=== PATIENT | female | born 1965 | race Caucasian/White ===

== ENCOUNTER 2017-04-26 12:42 | Emergency (ER) | payer OTHER, SELFPAY ==
[2017-04-26 12:53] VITALS: BP 173/103; PULSE 99; RESP 20; TEMP 36.7; O2SAT 96; BMI 19.3
--- NOTE | 2017-04-26 12:59 | XR_ITS ---
XR chest 2V HISTORY: ITS.REASON: cough ORDERING PHYSICIAN: Isaiah Teague MD PATIENT AGE: 51 years COMPARISON: 06/07/2016 FINDINGS: The cardiomediastinal silhouette and pulmonary vascularity are within normal limits. COPD. No lobar consolidation or collapse. Fibrotic change right apex.. Degenerative change thoracic spine. No acute bony abnormalities. IMPRESSION: COPD, no change with no acute finding
--- NOTE | 2017-04-26 13:01 | HMH.EDWEAK ---
ED Disposition Clinical Impression: COPD (chronic obstructive pulmonary disease), Tobacco use, Alcoholism, Atelectasis of right lung, Hyponatremia, Hypokalemia Disposition: Home, Self-Care Condition on Discharge: Fair Additional Instructions: 1- stop smoking and drinking. 2- adopt a healthy life style. 3- see Dr Bowman for a health screening. 4- see Dr Jose for a copd. 5- strat abx for augmentin 500 mg po bid 6- diet rich in potassium and gotrade. 7- return if needed. Prescriptions: Amoxicillin [Amoxicillin 500mg Cap] 500 mg PO TID #30 cap Referrals: Néstor Bowman MD [Primary Care Provider] - Helder Jose MD [Consulting Physician] - - Critical Care Critical Care Time: No Attestation: On , the high probability of a clinically significant, sudden or life threatening deterioration of the following system(s) required my full and direct attention, intervention and personal management. The time I documented below is in addition to time spent performing reported procedures but includes the following listed in this critical care notation. Medical Decision Making - Medical Records Medical records reviewed: Yes: I reviewed the patient's medical records. Vital Signs: 04/26/17 12:53 04/26/17 14:22 Temperature 98.1 F Temperature Source Oral Pulse Rate 85 Pulse Rate [Right Ulnar] 99 H Respiratory Rate 20 Blood Pressure [Right Arm] 173/103 Blood Pressure Mean [Right Arm] 126 Blood Pressure Source [Right Arm] Automatic Cuff Blood Pressure Position [Right Arm] Supine 02 Sat by Pulse Oximetry 96 Oxygen Delivery Method Room Air - Lab Data Lab Results 04/26/17 13:06: Specimen Source Right brachial, O2 % Ra, ABG pH 7.41, ABG pCO2 33.6 L, ABG pO2 78.2 L, ABG HCO3 20.6 L, ABG Total CO2 21.6 L, ABG O2 Saturation 95, ABG Base Excess -4.1 L, Casey Test Acceptable 04/26/17 13:25: Group A Strep Rapid Negative 04/26/17 13:25: Influenza Type A Ag Negative, Influenza Type B Ag Negative 04/26/17 13:40: WBC 6.4, RBC 4.58, Hgb 15.7, Hct 47.6 H, MCV 103.9 H, MCH 34.2 H, MCHC 32.9, RDW 12.4, Plt Count 304, MPV 7.9, Neut % (Auto) 62.5, Lymph % (Auto) 31.3, [place] % (Auto) 4.2, Eos % (Auto) 1.3, Baso % (Auto) 0.7, Neut # (Auto) 4.0, Lymph # (Auto) 2.0, [place] # (Auto) 0.3, Eos # (Auto) 0.1, Baso # (Auto) 0.0 04/26/17 13:40: Sodium 134 L, Potassium 3.3 L, Chloride 95 L, Carbon Dioxide 27, Anion Gap 15.3 H, BUN 2 L, Creatinine 0.44 L, Estimated Creat Clear 129, Estimated GFR 150, Est GFR ( Amer) 182, Glucose 89, Calcium 8.5, Magnesium 1.7, Total Bilirubin 0.3, AST 89 H, ALT 48, Alkaline Phosphatase 175 H, Total Creatine Kinase 52, CK-MB (CK-2) 0.5, CK-MB (CK-2) Rel Index 1.0, Troponin I < 0.02, Total Protein 9.4 H, Albumin 3.9, Globulin 5.5 H, Albumin/Globulin Ratio 0.7 L, TSH 1.15, Free T4 0.80, Plasma/Serum Alcohol 358 H 04/26/17 13:50: Urine Color Yellow, Urine Appearance Clear, Urine pH 6.0, Ur Specific [place] <= 1.005, Urine Protein Negative, Urine Glucose (UA) Negative, Urine Ketones Negative, Urine Blood Trace-l, Urine Nitrate Negative, Urine Bilirubin Negative, Urine Urobilinogen 0.2, Ur Leukocyte Esterase Negative, Urine RBC Occasional, Urine WBC None, Ur Squamous Epith Cells Occasional, Urine Bacteria Trace 04/26/17 13:50: Urine Opiates Screen Negative, Ur Barbituates Screen Negative, Ur Phencyclidine Scrn Negative, Ur Amphetamines Screen Negative, U Methamphetamines Scrn Negative, U Benzodiazepines Scrn Negative, Urine Cocaine Screen Negative, U Marijuana (THC) Screen Negative Result diagrams: 04/26/17 13:40 04/26/17 13:40 Orders (Tests/Meds): ED MEDICATIONS Generic Name Dose Route Start Last Admin Trade Name Freq PRN Reason Stop Dose Admin Multivitamins 10 ml/ Thiamine 1,015 mls @ 150 mls/hr 04/26/17 14:45 04/26/17 15:28 HCl 100 mg/ Magnesium Sulfate IV 04/26/17 21:30 150 mls/hr 2 gm/ Lactated Ringer's .[id number] NEHAL Administration Discontinued Medications Generic
--- NOTE | 2017-04-26 13:05 | ED_ITS ---
ED Disposition Clinical Impression: COPD (chronic obstructive pulmonary disease), Tobacco use, Alcoholism, Atelectasis of right lung, Hyponatremia, Hypokalemia Disposition: Home, Self-Care Condition on Discharge: Fair Additional Instructions: 1- stop smoking and drinking. 2- adopt a healthy life style. 3- see Dr Bowman for a health screening. 4- see Dr Jose for a copd. 5- strat abx for augmentin 500 mg po bid 6- diet rich in potassium and gotrade. 7- return if needed. Prescriptions: Amoxicillin [Amoxicillin 500mg Cap] 500 mg PO TID #30 cap Referrals: Néstor Bowman MD [Primary Care Provider] - Helder Jose MD [Consulting Physician] - - Critical Care Critical Care Time: No Attestation: On , the high probability of a clinically significant, sudden or life threatening deterioration of the following system(s) required my full and direct attention, intervention and personal management. The time I documented below is in addition to time spent performing reported procedures but includes the following listed in this critical care notation. Medical Decision Making - Medical Records Medical records reviewed: Yes: I reviewed the patient's medical records. Vital Signs: 04/26/17 12:53 04/26/17 14:22 Temperature 98.1 F Temperature Source Oral Pulse Rate 85 Pulse Rate [Right Ulnar] 99 H Respiratory Rate 20 Blood Pressure [Right Arm] 173/103 Blood Pressure Mean [Right Arm] 126 Blood Pressure Source [Right Arm] Automatic Cuff Blood Pressure Position [Right Arm] Supine 02 Sat by Pulse Oximetry 96 Oxygen Delivery Method Room Air - Lab Data Lab Results 04/26/17 13:06: Specimen Source Right brachial, O2 % Ra, ABG pH 7.41, ABG pCO2 33.6 L, ABG pO2 78.2 L, ABG HCO3 20.6 L, ABG Total CO2 21.6 L, ABG O2 Saturation 95, ABG Base Excess -4.1 L, [place] Test Acceptable 04/26/17 13:25: Group A Strep Rapid Negative 04/26/17 13:25: Influenza Type A Ag Negative, Influenza Type B Ag Negative 04/26/17 13:40: WBC 6.4, RBC 4.58, Hgb 15.7, Hct 47.6 H, MCV 103.9 H, MCH 34.2 H , MCHC 32.9, RDW 12.4, Plt Count 304, MPV 7.9, Neut % (Auto) 62.5, Lymph % (Auto ) 31.3, [place] % (Auto) 4.2, Eos % (Auto) 1.3, Baso % (Auto) 0.7, Neut # (Auto) 4.0, Lymph # (Auto) 2.0, [place] # (Auto) 0.3, Eos # (Auto) 0.1, Baso # (Auto) 0.0 04/26/17 13:40: Sodium 134 L, Potassium 3.3 L, Chloride 95 L, Carbon Dioxide 27 , Anion Gap 15.3 H, BUN 2 L, Creatinine 0.44 L, Estimated Creat Clear 129, Estimated GFR 150, Est GFR ( Amer) 182, Glucose 89, Calcium 8.5, Magnesium 1.7, Total Bilirubin 0.3, AST 89 H, ALT 48, Alkaline Phosphatase 175 H , Total Creatine Kinase 52, CK-MB (CK-2) 0.5, CK-MB (CK-2) Rel Index 1.0, Troponin I < 0.02, Total Protein 9.4 H, Albumin 3.9, Globulin 5.5 H, Albumin/ Globulin Ratio 0.7 L, TSH 1.15, Free T4 0.80, Plasma/Serum Alcohol 358 H 04/26/17 13:50: Urine Color Yellow, Urine Appearance Clear, Urine pH 6.0, Ur Specific [place] <= 1.005, Urine Protein Negative, Urine Glucose (UA) Negative, Urine Ketones Negative, Urine Blood Trace-l, Urine Nitrate Negative, Urine Bilirubin Negative, Urine Urobilinogen 0.2, Ur Leukocyte Esterase Negative, Urine RBC Occasional, Urine WBC None, Ur Squamous Epith Cells Occasional, Urine Bacteria Trace 04/26/17 13:50: Urine Opiates Screen Negative, Ur Barbituates Screen Negative, Ur Phencyclidine Scrn Negative, Ur Amphetamines Screen Negative, U Methamphetamines Scrn Negative, U Benzodiazepines Scrn Negative, Urine Cocaine Screen Negative, U [place]
[2017-04-26 13:36] LABS: ABG Base Excess -4.1 mmol/L (-2.4-2.3); ABG HCO3 20.6 mmhg (22.0-26.0); ABG Oxygen Saturation 95 % (90-100); ABG PCO2 33.6 mmhg (35.0-45.0); ABG PH 7.41 mmol/L (7.35-7.45); ABG PO2 78.2 mmhg (80-100); ABG TCO2 21.6 mmhg (23-27)
[2017-04-26 13:37] LABS: Oxygen RA %
[2017-04-26 13:38] LABS: Allen's Test Acceptable; Source Right Brachial
[2017-04-26 13:50] LABS: Basophils % 0.7 % (0.1-2.0); Eosinophils # 0.1 K/mm3 (0.0-0.4); Eosinophils % 1.3 % (0.1-12.0); Hematocrit 47.6 % (37.0-47.0); Hemoglobin 15.7 g/dL (12.2-16.2); Lymphocytes % 31.3 K/mm3 (10-50); Mean Corpuscular HGB Conc 32.9 g/dL (31.8-35.4); Mean Corpuscular Hemoglobin 34.2 pg (27.0-31.2); Mean Corpuscular Volume 103.9 fl (81-99); Mean Platelet Volume 7.9 fl (7.4-10.4); Monocytes # 0.3 K/mm3 (0.1-1.0); Monocytes % 4.2 % (1.7-9.3); Neutrophils % 62.5 % (37.0-80.0); Platelet Count 304 K/mm3 (142-424); Red Blood Count 4.58 M/mm3 (4.20-5.40); Red Cell Distribution Width 12.4 % (11.5-17.5); White Blood Count 6.4 K/mm3 (4.8-10.8)
[2017-04-26 13:53] LABS: Strep Scrn Group A (Rapid) Negative (Negative)
[2017-04-26 13:55] LABS: Appearance,Urine CLEAR (Clear); Bilirubin,Urine Negative (Negative); Blood, Urine TRACE-L (Negative); Color,Urine YELLOW (Yellow); Glucose,Urine (UA) Negative (Negative); Ketones,Urine Negative (Negative); Leukocyte Esterase,Urine Negative (Negative); Microscopic, Urine URINE MICROSCOPIC (MICROSCOPIC); Nitrate,Urine Negative (Negative); Protein,Urine Negative (Negative); Specific Gravity, Urine <= 1.005 (1.005-1.030); Urobilinogen,Urine 0.2 EU/dl (0.2)
[2017-04-26 14:04] LABS: Amphetamine/Metha Screen,Urine Negative ng/mL (<1000); Barbiturates Screen,Urine Negative ng/mL (<200); Benzodiazepines Screen,Urine Negative ng/mL (200); Cannabinoid Screen,Urine Negative ng/mL (<50); Cocaine Screen,Urine Negative ng/g (<300); Methadone Screen,Urine Negative ng/mL (<300); Opiate Screen,Urine Negative ng/mL (<300); Phencyclidine Screen,Urine Negative ng/mL (<25)
[2017-04-26 14:10] LABS: Bacteria,Urine Trace /lpf; RBC,Urine Occasional #/hpf (0-3); Squamous Epithelial Cell,Urine Occasional #/hpf (0-5)
[2017-04-26 14:22] VITALS: PULSE 85; PULSE 90
[2017-04-26 14:26] LABS: Alanine Aminotransferase 48 U/L (12-78); Albumin Level 3.9 gm/dL (3.4-5.0); Albumin/Globulin Ratio 0.7 (1.1-1.8); Alkaline Phosphatase 175 U/L (46-116); Anion Gap 15.3 mEq/L (5-15); Aspartate Amino Transferase 89 U/L (15-37); Bilirubin,Total 0.3 mg/dL (0.2-1.0); Blood Urea Nitrogen 2 mg/dL (7-18); Calcium 8.5 mg/dL (8.5-10.1); Carbon Dioxide 27 mmol/L (21.0-32.0); Chloride 95 mmol/L (98-107); Creatine Kinase 52 U/L (26-192); Creatine Kinase MB 0.5 mg/ml (0.0-3.6); Creatinine Clearance Estimated 129 mL/min (0-300); Creatinine,Serum 0.44 mg/dL (0.55-1.02); Estimated Glomerular Filt Rate 150 ml/min (>60); GFR (African American) 182 ML/MIN (>60); Globulin 5.5 gm/dl (1.3-3.2); Glucose 89 mg/dL (74-106); Magnesium 1.7 mg/dL (1.4-2.2); Potassium 3.3 mmoL/L (3.5-5.1); Sodium 134 mmol/L (136-145); Thyroid Stimulating Hormone 1.15 uIU/ml (0.358-3.740); Total Protein,Serum 9.4 gm/dL (6.4-8.2); Troponin I < 0.02 ng/ml (0.00-0.06)
[2017-04-26 14:30] LABS: Ethyl Alcohol 358 mg/dL (0-99)
[2017-04-26 18:15] LABS: Ethyl Alcohol 177 mg/dL (0-99)
--- NOTE | 2017-04-26 18:35 | PC.NURSE ---
I advised pt that her blood alcohol level was too high for us to release her on her own to walk. Advised if she had a ride we could let her go and she advised she wouldnt have a ride until 11.
[2017-04-26 23:17] VITALS: BP 132/83; PULSE 81; RESP 18; TEMP 36.3; O2SAT 96
[2017-04-29 10:53] LABS: Vitamin B12 887 pg/mL (232-1245)
[2017-04-29 11:07] LABS: Folate 12.5 ng/mL (>3.0)
[2017-04-29 18:12] LABS: Vitamin B6 7.5 ug/L (2.0-32.8)
== END 2017-04-26 23:19 | disposition home or self-care (01) ==
PROVIDERS: Emergency Provider Emergency Medicine; PCP Family Medicine
DX: J44.9 Chronic obstructive pulmonary disease, unspecified (principal); E87.1 Hypo-osmolality and hyponatremia; E87.6 Hypokalemia; J98.11 Atelectasis; F17.200 Nicotine dependence, unspecified, uncomplicated
CPT/HCPCS: 36415; 71046; 80053; 80305; 81001; 82550; 82553; 82607; 82746; 82803; 83735; 84207; 84439; 84443; 84484; 85025; 87275; 87276; 87430; 93005; 93041; 96365; 96366; 99283

== ENCOUNTER 2017-05-29 12:16 | Inpatient (IN) | payer OTHER, SELFPAY ==
[2017-05-29 12:17] VITALS: BP 175/111; PULSE 94; RESP 20; TEMP 36.4; O2SAT 99; BMI 19.3
--- NOTE | 2017-05-29 12:36 | CT_ITS ---
CT abdomen pelvis w con CLINICAL INDICATION: Upper abdominal pain ITS.REASON: upper abdominal pain , po and ivc please . ORDERING PHYSICIAN: Jerome Sánchez MD PATIENT AGE: 51 years COMPARISON: None TECHNIQUE: Axial images obtained with sagittal and coronal reformats. PROCEDURE: Oral Contrast: Gastroview IV Contrast: 75 mL's of [id number]. FINDINGS: There is a 6 mm noncalcified nodule in the lateral aspect of the right middle lobe and there is patchy density in the medial aspect of the right middle lobe. The liver, spleen, adrenal glands, and kidneys have an unremarkable appearance. There is some mild prominence of the common bile duct at 8 mm. The gallbladder is distended at over 10 cm longitudinal and 3.7 cm transverse. The pancreatic duct is also somewhat prominent measuring up to nearly 5 mm. Unremarkable appendix. No evidence of diverticulitis. No evidence of intestinal obstruction or free air. Prior hysterectomy. No pelvic mass, abnormal fluid collection, or focal inflammatory changes evident. No acute bony anomalies. IMPRESSION: 1. Distended gallbladder with mild prominence of the common bile duct and pancreatic duct. Gallbladder ultrasound suggested for further evaluation. 2. 6 mm nodule right lung base laterally. Recommend 6 month follow-up. 3.Otherwise negative CT abdomen pelvis
--- NOTE | 2017-05-29 12:45 | HMH.EDABDPAI ---
ED Disposition Clinical Impression: Acute pancreatitis, UTI (urinary tract infection) Disposition: Still a Patient Condition on Discharge: Fair Instructions: DI for Acute Abdomen Referrals: Néstor Bowman MD [Primary Care Provider] - - Critical Care Critical Care Time: No Attestation: On , the high probability of a clinically significant, sudden or life threatening deterioration of the following system(s) required my full and direct attention, intervention and personal management. The time I documented below is in addition to time spent performing reported procedures but includes the following listed in this critical care notation. Medical Decision Making Vital Signs: 05/29/17 12:17 Temperature 97.5 F L Temperature Source Oral Pulse Rate [Right Brachial] 94 H Respiratory Rate 20 Blood Pressure [Right Arm] 175/111 Blood Pressure Mean [Right Arm] 132 Blood Pressure Source [Right Arm] Automatic Cuff Blood Pressure Position [Right Arm] Sitting 02 Sat by Pulse Oximetry 99 Oxygen Delivery Method Room Air - Lab Data Lab results reviewed: Yes: I reviewed the patient's lab results. Lab Results 05/29/17 13:05: WBC 9.6, RBC 4.04 L, Hgb 13.7, Hct 42.8, MCV 105.9 H, MCH 33.9 H, MCHC 32.0, RDW 12.0, Plt Count 165, MPV 8.8, Neut % (Auto) 88.6 H, Lymph % (Auto) 6.1 L, [place] % (Auto) 4.7, Eos % (Auto) 0.5, Baso % (Auto) 0.1, Neut # (Auto) 8.5 H, Lymph # (Auto) 0.6 L, [place] # (Auto) 0.5, Eos # (Auto) 0.1, Baso # (Auto) 0.0, Total Counted 100, Neutrophils % (Manual) 94 H, Band Neutrophils % 1.0, Lymphocytes % (Manual) 2 L, Monocytes % (Manual) 3, Platelet Estimate Normal, Target Cells 2+ 05/29/17 13:05: Sodium 135 L, Potassium 3.6, Chloride 94 L, Carbon Dioxide 28, Anion Gap 16.6 H, BUN 6 L, Creatinine 0.55, Estimated Creat Clear 103, Estimated GFR 116, Est GFR ( Amer) 140, Glucose 128 H, Calcium 9.1, Total Bilirubin 1.6 H, AST 59 H, ALT 36, Alkaline Phosphatase 174 H, Total Protein 9.5 H, Albumin 4.4, Globulin 5.1 H, Albumin/Globulin Ratio 0.9 L, Amylase 363 H*, Lipase 3892 H 05/29/17 13:05: Total Creatine Kinase 75, CK-MB (CK-2) 0.5, CK-MB (CK-2) Rel Index 0.7, Troponin I < 0.02 05/29/17 13:05: Lactic Acid 1.5 05/29/17 13:30: Urine Color [place], Urine Appearance Sl cloudy, Urine pH 6.0, Ur Specific [place] >= 1.030, Urine Protein 2+, Urine Glucose (UA) Negative, Urine Ketones 2+, Urine Blood 1+, Urine Nitrate Positive, Urine Bilirubin Negative, Urine Urobilinogen 0.2, Ur Leukocyte Esterase Negative, Urine RBC Occasional, Urine WBC 5-10, Ur Squamous Epith Cells 5-10, Urine Bacteria 3+, Hyaline Casts 3-5, Urine Mucus 3+ Result diagrams: 05/29/17 13:05 05/29/17 13:05 Orders (Tests/Meds): ED MEDICATIONS Generic Name Dose Route Start Last Admin Trade Name Freq PRN Reason Stop Dose Admin Ceftriaxone Sodium 1 gm/ 50 mls @ 100 mls/hr 05/29/17 16:30 05/29/17 16:40 Sodium Chloride IV 06/12/17 16:29 100 mls/hr Q24H NEHAL Administration Morphine Sulfate 2 mg 05/29/17 16:27 05/29/17 16:40 Morphine 2mg/Ml Syringe IV 06/28/17 16:26 2 mg Q4HP PRN Administration Moderate to Severe Pain Discontinued Medications Generic Name Dose Route Start Last Admin Trade Name Freq PRN Reason Stop Dose Admin Diatrizoate Meglum/Diatrizoate Sod 30 ml 05/29/17 13:46 05/29/17 13:30 Gastrografin 66%-10% 30ml PO 05/29/17 13:47 30 ml ONCE ONE Administration Famotidine 20 mg 05/29/17 12:37 05/29/17 13:16 Pepcid 20mg/2ml Vial IV 05/29/17 12:38 20 mg ONCE ONE Administration Iopamidol 75 ml 05/29/17 15:27 05/29/17 15:27 [id number]; 75ml Vial IV 05/29/17 15:28 75 ml ONCE ONE Administration Ketorolac Tromethamine 15 mg 05/29/17 12:47 05/29/17 13:17 Toradol 30mg/Ml Vial IV 05/29/17 12:48 15 mg ONCE ONE Administration Morphine Sulfate 2 mg 05/29/17 12:37 05/29/17 12:53 Morphine 2mg/Ml Syringe IV 05/29/17 12:38 Not Given ONCE ONE Ondansetron HCl 4 mg
--- NOTE | 2017-05-29 12:48 | ED_ITS ---
ED Disposition Clinical Impression: Acute pancreatitis, UTI (urinary tract infection) Disposition: Still a Patient Condition on Discharge: Fair Instructions: DI for Acute Abdomen Referrals: Néstor Bowman MD [Primary Care Provider] - - Critical Care Critical Care Time: No Attestation: On , the high probability of a clinically significant, sudden or life threatening deterioration of the following system(s) required my full and direct attention, intervention and personal management. The time I documented below is in addition to time spent performing reported procedures but includes the following listed in this critical care notation. Medical Decision Making Vital Signs: 05/29/17 12:17 Temperature 97.5 F L Temperature Source Oral Pulse Rate [Right Brachial] 94 H Respiratory Rate 20 Blood Pressure [Right Arm] 175/111 Blood Pressure Mean [Right Arm] 132 Blood Pressure Source [Right Arm] Automatic Cuff Blood Pressure Position [Right Arm] Sitting 02 Sat by Pulse Oximetry 99 Oxygen Delivery Method Room Air - Lab Data Lab results reviewed: Yes: I reviewed the patient's lab results. Lab Results 05/29/17 13:05: WBC 9.6, RBC 4.04 L, Hgb 13.7, Hct 42.8, MCV 105.9 H, MCH 33.9 H , MCHC 32.0, RDW 12.0, Plt Count 165, MPV 8.8, Neut % (Auto) 88.6 H, Lymph % ( Auto) 6.1 L, [place] % (Auto) 4.7, Eos % (Auto) 0.5, Baso % (Auto) 0.1, Neut # ( Auto) 8.5 H, Lymph # (Auto) 0.6 L, [place] # (Auto) 0.5, Eos # (Auto) 0.1, Baso # ( Auto) 0.0, Total Counted 100, Neutrophils % (Manual) 94 H, Band Neutrophils % 1.0, Lymphocytes % (Manual) 2 L, Monocytes % (Manual) 3, Platelet Estimate Normal, Target Cells 2+ 05/29/17 13:05: Sodium 135 L, Potassium 3.6, Chloride 94 L, Carbon Dioxide 28, Anion Gap 16.6 H, BUN 6 L, Creatinine 0.55, Estimated Creat Clear 103, Estimated GFR 116, Est GFR ( Amer) 140, Glucose 128 H, Calcium 9.1, Total Bilirubin 1.6 H, AST 59 H, ALT 36, Alkaline Phosphatase 174 H, Total Protein 9.5 H, Albumin 4.4, Globulin 5.1 H, Albumin/Globulin Ratio 0.9 L, Amylase 363 H*, Lipase 3892 H 05/29/17 13:05: Total Creatine Kinase 75, CK-MB (CK-2) 0.5, CK-MB (CK-2) Rel Index 0.7, Troponin I < 0.02 05/29/17 13:05: Lactic Acid 1.5 05/29/17 13:30: Urine Color [place], Urine Appearance Sl cloudy, Urine pH 6.0, Ur Specific [place] >= 1.030, Urine Protein 2+, Urine Glucose (UA) Negative, Urine Ketones 2+, Urine Blood 1+, Urine Nitrate Positive, Urine Bilirubin Negative, Urine Urobilinogen 0.2, Ur Leukocyte Esterase Negative, Urine RBC Occasional, Urine WBC 5-10, Ur Squamous Epith Cells 5-10, Urine Bacteria 3+, Hyaline Casts 3-5, Urine Mucus 3+ Result diagrams: 05/29/17 13:05 05/29/17 13:05 Orders (Tests/Meds): ED MEDICATIONS Generic Name Dose Route Start Last Admin Trade Name Freq PRN Reason Stop Dose Admin Ceftriaxone Sodium 1 gm/ 50 mls @ 100 mls/hr 05/29/17 16:30 05/29/17 16:40 Sodium Chloride IV 06/12/17 16:29 100 mls/hr Q24H NEHAL Administration Morphine Sulfate 2 mg 05/29/17 16:27 05/29/17 16:40 Morphine 2mg/Ml Syringe IV 06/28/17 16:26 2 mg Q4HP PRN Administration Moderate to Severe Pain Discontinued Medications Generic Name Dose Route Start Last Admin Trade Name Freq PRN Reason Stop Dose Admin Diatrizoate Meglum/Diatrizoate Sod 30 ml 05/29/17 13:46 05/29/17 13:30 Gastrografin 66%-10% 30ml PO 05/29/17 13:47 30 ml ONCE ONE Admi
[2017-05-29 13:28] LABS: Basophils % 0.1 % (0.1-2.0); Eosinophils # 0.1 K/mm3 (0.0-0.4); Eosinophils % 0.5 % (0.1-12.0); Hematocrit 42.8 % (37.0-47.0); Hemoglobin 13.7 g/dL (12.2-16.2); Lymphocytes # 0.6 K/mm3 (0.7-4.5); Lymphocytes % 6.1 K/mm3 (10-50); Mean Corpuscular Hemoglobin 33.9 pg (27.0-31.2); Mean Corpuscular Volume 105.9 fl (81-99); Mean Platelet Volume 8.8 fl (7.4-10.4); Monocytes # 0.5 K/mm3 (0.1-1.0); Monocytes % 4.7 % (1.7-9.3); Neutrophils # 8.5 K/mm3 (1.8-7.8); Neutrophils % 88.6 % (37.0-80.0); Platelet Count 165 K/mm3 (142-424); Red Blood Count 4.04 M/mm3 (4.20-5.40); White Blood Count 9.6 K/mm3 (4.8-10.8)
--- NOTE | 2017-05-29 13:28 | PC.NURSE ---
ORAL CONTRAST FINISHED AT THIS TIME.
[2017-05-29 13:31] LABS: Microscopic, Urine URINE MICROSCOPIC (MICROSCOPIC)
[2017-05-29 13:31] LABS: MANUAL DIFFERENTIAL MANUAL DIFFERENTIAL (MANUAL DIFF)
[2017-05-29 13:34] LABS: Appearance,Urine SL CLOUDY (Clear); Blood, Urine 1+ (Negative); Color,Urine ORANGE (Yellow); Glucose,Urine (UA) Negative (Negative); Ketones,Urine 2+ (Negative); Leukocyte Esterase,Urine Negative (Negative); Nitrate,Urine POSITIVE (Negative); Protein,Urine 2+ (Negative); Specific Gravity, Urine >= 1.030 (1.005-1.030); Urobilinogen,Urine 0.2 EU/dl (0.2)
[2017-05-29 13:41] LABS: Alanine Aminotransferase 36 U/L (12-78); Albumin Level 4.4 gm/dL (3.4-5.0); Albumin/Globulin Ratio 0.9 (1.1-1.8); Alkaline Phosphatase 174 U/L (46-116); Amylase 363 U/L (25-125); Anion Gap 16.6 mEq/L (5-15); Aspartate Amino Transferase 59 U/L (15-37); Bilirubin,Total 1.6 mg/dL (0.2-1.0); Blood Urea Nitrogen 6 mg/dL (7-18); Calcium 9.1 mg/dL (8.5-10.1); Carbon Dioxide 28 mmol/L (21.0-32.0); Chloride 94 mmol/L (98-107); Creatinine Clearance Estimated 103 mL/min (0-300); Creatinine,Serum 0.55 mg/dL (0.55-1.02); Estimated Glomerular Filt Rate 116 ml/min (>60); GFR (African American) 140 ML/MIN (>60); Globulin 5.1 gm/dl (1.3-3.2); Glucose 128 mg/dL (74-106); Potassium 3.6 mmoL/L (3.5-5.1); Sodium 135 mmol/L (136-145); Total Protein,Serum 9.5 gm/dL (6.4-8.2)
[2017-05-29 13:45] LABS: Bilirubin,Urine Negative (Negative)
[2017-05-29 13:48] LABS: Lactic Acid 1.5 mmol/L (0.4-2.0)
[2017-05-29 13:50] LABS: Lipase 3892 u/L (73-393)
[2017-05-29 13:56] LABS: Bacteria,Urine 3+ /lpf; Mucus,Urine 3+ /lpf; RBC,Urine Occasional #/hpf (0-3)
[2017-05-29 13:59] LABS: CKMB Relative Index 0.7 U/L (0-4.0); Creatine Kinase 75 U/L (26-192); Creatine Kinase MB 0.5 mg/ml (0.0-3.6); Troponin I < 0.02 ng/ml (0.00-0.06)
[2017-05-29 14:00] LABS: Lymphocytes % 2 % (10-50); Monocytes % 3 % (2-9); Neutrophils % 94 % (42-76); Platelet Estimate Normal; Target Cells 2+; Total Cells Counted 100
[2017-05-29 17:40] VITALS: BP 179/98; PULSE 74; RESP 18; TEMP 36.7; O2SAT 100
[2017-05-29 18:12] VITALS: BP 179/98; PULSE 74; RESP 20; TEMP 36.7; O2SAT 100
[2017-05-29 18:28] VITALS: BP 186/91; PULSE 81; RESP 20; TEMP 36.7; O2SAT 90; BMI 16.7
--- NOTE | 2017-05-29 18:58 | PC.NURSE ---
REPORT BEING GIVEN TO BEBE HOLLINGSWORTH RN
--- NOTE | 2017-05-29 19:20 | PC.NURSE ---
PT FULL CODE, REPORT RECEIVED FROM KYA
[2017-05-29 19:54] VITALS: BP 164/88; PULSE 81; RESP 22; TEMP 36.6; O2SAT 96
[2017-05-30 03:56] VITALS: BP 163/88; PULSE 94; RESP 22; TEMP 36.5; O2SAT 94
--- NOTE | 2017-05-30 06:34 | PC.NURSE ---
PT SLEPT INTERVALS THIS SHIFT. RESPIRATIONS EVEN AND UNLABORED, BREATH SOUNDS CLEAR. C/O HEARTBURN X1, MAALOX GIVEN; PAIN MED GIVEN WELL. IV INFUSING NS@50/HR W/O REDNESS OR EDEMA. PT HAS CONSULT THIS AM WITH DR. LANDRUM. HAS BEEN NPO SINCE ADMISSION. PT STABLE. WILL CONTINUE TO MONITOR. REPORT TO BE GIVEN TO ONCOMING NURSE.
[2017-05-30 07:01] LABS: Basophils % 0.3 % (0.1-2.0); Eosinophils # 0.1 K/mm3 (0.0-0.4); Eosinophils % 0.6 % (0.1-12.0); Hematocrit 41.1 % (37.0-47.0); Hemoglobin 13.3 g/dL (12.2-16.2); Lymphocytes # 0.8 K/mm3 (0.7-4.5); Lymphocytes % 10.1 K/mm3 (10-50); Mean Corpuscular HGB Conc 32.4 g/dL (31.8-35.4); Mean Corpuscular Hemoglobin 34.8 pg (27.0-31.2); Mean Corpuscular Volume 107.3 fl (81-99); Monocytes # 0.4 K/mm3 (0.1-1.0); Neutrophils # 6.8 K/mm3 (1.8-7.8); Platelet Count 153 K/mm3 (142-424); Red Blood Count 3.83 M/mm3 (4.20-5.40)
[2017-05-30 07:09] LABS: Alanine Aminotransferase 28 U/L (12-78); Albumin Level 3.9 gm/dL (3.4-5.0); Albumin/Globulin Ratio 0.8 (1.1-1.8); Alkaline Phosphatase 153 U/L (46-116); Amylase 393 U/L (25-125); Anion Gap 14.5 mEq/L (5-15); Aspartate Amino Transferase 44 U/L (15-37); Bilirubin,Total 1.2 mg/dL (0.2-1.0); Blood Urea Nitrogen 7 mg/dL (7-18); Carbon Dioxide 29 mmol/L (21.0-32.0); Chloride 96 mmol/L (98-107); Cholesterol 166 mg/dL (140-200); Creatinine Clearance Estimated 71 mL/min (0-300); Creatinine,Serum 0.69 mg/dL (0.55-1.02); Estimated Glomerular Filt Rate 89 ml/min (>60); GFR (African American) 108 ML/MIN (>60); Globulin 4.7 gm/dl (1.3-3.2); Glucose 84 mg/dL (74-106); HDL Cholesterol 84 mg/dL (29-89); LDL Cholesterol 71 mg/dL (0-130); Magnesium 1.6 mg/dL (1.4-2.2); Potassium 3.5 mmoL/L (3.5-5.1); Sodium 136 mmol/L (136-145); Total Protein,Serum 8.6 gm/dL (6.4-8.2); Triglycerides 55 mg/dL (30-200); VLDL Cholesterol 11 mg/dL (0-40)
--- NOTE | 2017-05-30 07:28 | PC.NURSE ---
REPORT GIVEN TO Geovanny SELLERS W/C
[2017-05-30 07:29] VITALS: BP 133/82; PULSE 80; RESP 20; TEMP 36.8; O2SAT 100
[2017-05-30 07:29] LABS: Lipase 6138 u/L (73-393)
--- NOTE | 2017-05-30 07:29 | P.CONPHA_ITS ---
[facility] Pharmacy VTE Monitoring - Patient Demographics Admission date: 05/29/17 Report Date: 05/30/17 Time: 07:29 Allergies/Adverse Reactions: Patient Allergies codeine [CODEINE] Allergy (Mild, Verified 04/26/17 13:04) Height: 1.68 m Weight: 46.947 kg Patient Problems: Current Active Problems Acute pancreatitis (Acute) UTI (urinary tract infection) (Acute) - VTE Risk Labs: VTE Related Lab Results Hgb 13.3 g/dL (12.2-16.2) 05/30/17 06:30 Hct 41.1 % (37.0-47.0) 05/30/17 06:30 Plt Count 153 K/mm3 (142-424) 05/30/17 06:30 BUN 7 mg/dL (7-18) 05/30/17 06:30 Creatinine 0.69 mg/dL (0.55-1.02) D 05/30/17 06:30 Estimated Creat Clear 71 mL/min (0-300) 05/30/17 06:30 Was VTE Risk Assessment Performed: Yes VTE Score: 2 VTE Risk Level: Low Risk - Prophylaxis VTE Prophylaxis Ordered?: Yes Types of VTE Prophylaxis: TEDS Knee High Location of Applied Device: Bilateral Lower Extremeties - VTE Diagnosis Confirmed Treatment or plan recommended: Continue Current Treatment
--- NOTE | 2017-05-30 08:00 | US_ITS ---
US gallbladder HISTORY: Abdominal pain, distended gallbladder on CT scan ITS.REASON: acute pancreatitis ORDERING PHYSICIAN: Jerome Sánchez MD PATIENT AGE: 51 years COMPARISON: None FINDINGS: PANCREAS: The pancreas is poorly demonstrated due to overlying bowel gas. LIVER: No focal liver lesions demonstrated. Homogeneous echogenicity. No intrahepatic biliary ductal dilatation evident RIGHT KIDNEY: Unremarkable. Normal size and echogenicity. No hydronephrosis GALLBLADDER: The gallbladder is distended measuring 12 cm cephalad to caudad and 3.5 cm in AP dimension. There is a small stone present in the fundus of the gallbladder measuring 5 mm. No gallbladder wall thickening or pericholecystic fluid. The common bile duct is distended at 11 mm and there is minimal prominence of the intrahepatic biliary radicles centrally. IMPRESSION: Distended gallbladder with a gallstone. Biliary ductal dilatation is also present with the common bile duct measuring up to 11 mm. This raises the suspicion of common duct stone or passed stone. MRCP may be of further value if clinically warranted
--- NOTE | 2017-05-30 08:43 | HMH.HP ---
*Admission Date: 05/29/17 <05/30/17 08:49> *Chief complaint: Abdominal pain <05/30/17 08:49> *History of present illness: Ms. Bustamante is a 51yo WF with a history of COPD and GERD who is not currently established with a PCP. She presented to [facility] ED yesterday after experiencing about 12 hours of epigastric pain accompanied by nausea and vomiting. Upon arrival, her amylase and lipase were elevated and UA showed her to have a UTI. Her abdominal CT showed gallbladder distention with prominence of the common bile duct and pancreatic duct. Her case was discussed with Dr. Sánchez and she was admitted for GI consult. This morning she is feeling somewhat better. She describes continued epigastric pain which is tolerable with prn pain medication. She denies any further nausea or vomiting although she is now having some loose stools. She remains NPO. <05/30/17 09:08> [facility] History Medical History: Reports:: Congestive Heart Failure, Chronic Obstructive Pulmonary Disease (COPD), Gastroesophageal Reflux Disease(GERD), Urinary Tract Infection Denies:: Atherosclerotic Heart Disease, Cancer, Diabetes Mellitus Type 1, Diabetes Mellitus Type 2, Gastrointestinal Bleed, Hepatitis, Home Oxygen, Hyperlipidemia, Hypertension, Myocardial Infarction, Seizures, Transient Ischemic Attacks (TIA) <05/30/17 09:08> Other Medical History: Denies: Anemia, Arthritis, Hypothyroidism, Liver Disease, Thyroid Disease, Unexplained Bleeding <05/30/17 09:08> Other Surgeries: Yes: Hysterectomy-Total <05/30/17 09:08> Amputation: No <05/30/17 08:49> Fractures: No <05/30/17 08:49> - *Social History Smoking Status: Current every day smoker <05/30/17 08:49> Tobacco Type: cigarettes <05/30/17 08:49> Alcohol Intake: never <05/30/17 08:49> - Psychiatric History Expresses thoughts of harming self/others: None <05/30/17 08:49> Suicide Plan Description: No Plan <JaylanYumiko jj - 05/30/17 08:49> *Family Hx:: No significant family history <JaylanJonny jja 05/30/17 09:08> Review of Systems - Review of Systems Review of systems:: pertinent systems reviewed and negative unless documented below <JaylanJonny jjallyson Cortes 05/30/17 09:08> - *Gastrointestinal Reports abdominal pain, Reports loose stools, Reports heartburn, Reports nausea, Reports vomiting, Denies coffee ground vomit, Denies constipation, Denies vomiting blood, Denies bright, red blood in stools, Denies black, tarry stools <JaylanYumiko 05/30/17 09:08> Meds Home Medications Medication Instructions Recorded Confirmed Type Omeprazole [Omeprazole 40mg 40 mg PO DAILY 05/29/17 05/29/17 History Capsule] Albuterol Sulfate [Albuterol HFA 2 puffs IH Q6HP PRN 05/30/17 05/30/17 History Inhaler] <Jerome Sánchez - 05/30/17 17:30> Allergies Allergy/AdvReac Type Severity Reaction Status Date / Time codeine [CODEINE] Allergy Mild Verified 04/26/17 13:04 <Jerome Sánchez - 05/30/17 17:30> Exam Vital signs and Labs for Last 24 Hours: Temp Pulse Resp BP Pulse Ox 98.5 F 73 20 135/86 98 05/30/17 15:40 05/30/17 15:40 05/30/17 15:40 05/30/17 15:40 05/30/17 15:40 Laboratory Results - last 24 hr 05/30/17 06:30: WBC 8.0, RBC 3.83 L, Hgb 13.3, Hct 41.1, MCV 107.3 H, MCH 34.8 H, MCHC 32.4, RDW 12.0, Plt Count 153, MPV 9.0, Neut % (Auto) 84.0 H, Lymph % (Auto) 10.1, [place] % (Auto) 5.0, Eos % (Auto) 0.6, Baso % (Auto) 0.3, Neut # (Auto) 6.8, Lymph # (Auto) 0.8, [place] # (Auto) 0.4, Eos # (Auto) 0.1, Baso # (Auto) 0.0 05/30/17 06:30: Sodium 136, Potassium 3.5, Chloride 96 L, Carbon Dioxide 29, Anion Gap 14.5, BUN 7, Creatinine 0.69 D, Estimated Creat Clear 71, Estimated GFR 89, Est GFR ( Amer) 108 D, Glucose 84 D, Calcium 9.0, Magnesium 1.6, Total Bilirubin 1.2 H, AST 44 H D, ALT 28, Alkaline Phosphatase 153 H, [place]
--- NOTE | 2017-05-30 08:49 | P.HP_ITS ---
*Admission Date: 05/29/17 <05/30/17 08:49> *Chief complaint: Abdominal pain <05/30/17 08:49> *History of present illness: Ms. Bustamante is a 51yo WF with a history of COPD and GERD who is not currently established with a PCP. She presented to [facility] ED yesterday after experiencing about 12 hours of epigastric pain accompanied by nausea and vomiting. Upon arrival, her amylase and lipase were elevated and UA showed her to have a UTI. Her abdominal CT showed gallbladder distention with prominence of the common bile duct and pancreatic duct. Her case was discussed with Dr. Sánchez and she was admitted for GI consult. This morning she is feeling somewhat better. She describes continued epigastric pain which is tolerable with prn pain medication. She denies any further nausea or vomiting although she is now having some loose stools. She remains NPO. <05/30/17 09:08> [facility] History Medical History: Reports:: Congestive Heart Failure, Chronic Obstructive Pulmonary Disease (COPD), Gastroesophageal Reflux Disease(GERD), Urinary Tract Infection Denies:: Atherosclerotic Heart Disease, Cancer, Diabetes Mellitus Type 1, Diabetes Mellitus Type 2, Gastrointestinal Bleed, Hepatitis, Home Oxygen, Hyperlipidemia, Hypertension, Myocardial Infarction, Seizures, Transient Ischemic Attacks (TIA) <05/30/17 09:08> Other Medical History: Denies: Anemia, Arthritis, Hypothyroidism, Liver Disease , Thyroid Disease, Unexplained Bleeding <05/30/17 09:08> Other Surgeries: Yes: Hysterectomy-Total <05/30/17 09:08> Amputation: No <05/30/17 08:49> Fractures: No <05/30/17 08:49> - *Social History Smoking Status: Current every day smoker <05/30/17 08:49> Tobacco Type: cigarettes <05/30/17 08:49> Alcohol Intake: never <05/30/17 08:49> - Psychiatric History Expresses thoughts of harming self/others: None <05/30/17 08:49> Suicide Plan Description: No Plan <JaylanYumiko jj - 05/30/17 08:49> *Family Hx:: No significant family history <JaylanJonny jja 05/30/17 09:08> Review of Systems - Review of Systems Review of systems:: pertinent systems reviewed and negative unless documented below <JaylanYumiko jj 05/30/17 09:08> - *Gastrointestinal Reports abdominal pain, Reports loose stools, Reports heartburn, Reports nausea , Reports vomiting, Denies coffee ground vomit, Denies constipation, Denies vomiting blood, Denies bright, red blood in stools, Denies black, tarry stools <JaylanJonny jja 05/30/17 09:08> Meds Home Medications Medication Instructions Recorded Confirmed Type Omeprazole [Omeprazole 40mg 40 mg PO DAILY 05/29/17 05/29/17 History Capsule] Albuterol Sulfate [Albuterol HFA 2 puffs IH Q6HP PRN 05/30/17 05/30/17 History Inhaler] <Jerome Sánchez - 05/30/17 17:30> Allergies Allergy/AdvReac Type Severity Reaction Status Date / Time codeine [CODEINE] Allergy Mild Verified 04/26/17 13:04 <Jerome Sánchez - 05/30/17 17:30> Exam Vital signs and Labs for Last 24 Hours: Temp Pulse Resp BP Pulse Ox 98.5 F 73 20 135/86 98 05/30/17 15:40 05/30/17 15:40 05/30/17 15:40 05/30/17 15:40 05/30/17 15:40 Laboratory Results - last 24 hr 05/30/17 06:30: WBC 8.0, RBC 3.83 L, Hgb 13.3, Hct 41.1, MCV 107.3 H, MCH 34.8 H , MCHC 32.4, RDW 12.0, Plt Count 153, MPV 9.0, Neut % (Auto) 84.0 H, Lymph % ( Auto) 10.1, [place] % (Auto) 5.0, Eos % (Auto) 0
--- NOTE | 2017-05-30 10:27 | HMH.CONS ---
<Chelo Nielsen - Last Filed: 05/30/17 10:31> *Admission Date: 05/29/17 *Chief complaint: ABD pain/Nausea *History of present illness: Ms. Bustamante is a 51yo WF with a history of COPD and GERD who is not currently established with a PCP. She presented to [facility] ED yesterday after experiencing about 12 hours of epigastric pain accompanied by nausea and vomiting. Upon arrival, her amylase and lipase were elevated and UA showed her to have a UTI. Her abdominal CT showed gallbladder distention with prominence of the common bile duct and pancreatic duct. Her case was discussed with Dr. Sánchez and she was admitted for GI consult. This morning she is feeling somewhat better. She describes continued epigastric pain which is tolerable with prn pain medication. She denies any further nausea or vomiting although she is now having some loose stools. She remains NPO. I did see the pt this morning following u/s of the RUQ. This did show CBD dilation of 11mm and a prominent GB stone. The pt Lipase level was >3800 and Alk Phos was 174 upon admission. Total Bili was 1.6. Pt continues to be NPO [facility] History Medical History: Reports:: Congestive Heart Failure, Chronic Obstructive Pulmonary Disease (COPD), Gastroesophageal Reflux Disease(GERD), Urinary Tract Infection Denies:: Atherosclerotic Heart Disease, Cancer, Diabetes Mellitus Type 1, Diabetes Mellitus Type 2, Gastrointestinal Bleed, Hepatitis, Home Oxygen, Hyperlipidemia, Hypertension, Myocardial Infarction, Seizures, Transient Ischemic Attacks (TIA) Other Medical History: Denies: Anemia, Arthritis, Hypothyroidism, Liver Disease, Thyroid Disease, Unexplained Bleeding Other Surgeries: Yes: Hysterectomy-Total Amputation: No Fractures: No - *Social History Smoking Status: Current every day smoker Tobacco Type: cigarettes Alcohol Intake: never - Psychiatric History Expresses thoughts of harming self/others: None Suicide Plan Description: No Plan *Family Hx:: No significant family history Review of Systems - Review of Systems Review of systems:: pertinent systems reviewed and negative unless documented below - Constitutional Reports anorexia - *Gastrointestinal Reports abdominal pain, Reports change in bowel habits, Reports change in stools, Reports cramping, Reports loose stools, Reports loose stools, Reports nausea, Reports vomiting Meds Home Medications Medication Instructions Recorded Confirmed Type Omeprazole [Omeprazole 40mg 40 mg PO DAILY 05/29/17 05/29/17 History Capsule] Albuterol Sulfate [Albuterol HFA 2 puffs IH Q6HP PRN 05/30/17 05/30/17 History Inhaler] Allergies Allergy/AdvReac Type Severity Reaction Status Date / Time codeine [CODEINE] Allergy Mild Verified 04/26/17 13:04 Exam Vital signs and Labs for Last 24 Hours: Temp Pulse Resp BP Pulse Ox 98.3 F 80 20 133/82 100 05/30/17 07:29 05/30/17 07:29 05/30/17 07:29 05/30/17 07:29 05/30/17 07:29 Laboratory Results - last 24 hr 05/30/17 06:30: WBC 8.0, RBC 3.83 L, Hgb 13.3, Hct 41.1, MCV 107.3 H, MCH 34.8 H, MCHC 32.4, RDW 12.0, Plt Count 153, MPV 9.0, Neut % (Auto) 84.0 H, Lymph % (Auto) 10.1, [place] % (Auto) 5.0, Eos % (Auto) 0.6, Baso % (Auto) 0.3, Neut # (Auto) 6.8, Lymph # (Auto) 0.8, [place] # (Auto) 0.4, Eos # (Auto) 0.1, Baso # (Auto) 0.0 05/30/17 06:30: Sodium 136, Potassium 3.5, Chloride 96 L, Carbon Dioxide 29, Anion Gap 14.5, BUN 7, Creatinine 0.69 D, Estimated Creat Clear 71, Estimated GFR 89, Est GFR ( Amer) 108 D, Glucose 84 D, Calcium 9.0, Magnesium 1.6, Total Bilirubin 1.2 H, AST 44 H D, ALT 28, Alkaline Phosphatase 153 H, Total Protein 8.6 H, Albumin 3.9 D, Globulin 4.7 H, Albumin/Globulin Ratio 0.8 L, Triglycerides 55, Cholesterol 166, LDL Cholesterol 71, VLDL Cholesterol 11, HDL Cholesterol 84, Cholesterol/HDL Ratio 2.0, Amylase 393 H*, Lipase 6138 H I & O for Last 24 hours: Intake & Output 05/27/17 05/28/17 05/29/17 05/30/17 23:59 23:59 23:59
--- NOTE | 2017-05-30 10:30 | P.CONS_ITS ---
<Chelo Nielsen - Last Filed: 05/30/17 10:31> *Admission Date: 05/29/17 *Chief complaint: ABD pain/Nausea *History of present illness: Ms. Bustamante is a 51yo WF with a history of COPD and GERD who is not currently established with a PCP. She presented to [facility] ED yesterday after experiencing about 12 hours of epigastric pain accompanied by nausea and vomiting. Upon arrival, her amylase and lipase were elevated and UA showed her to have a UTI. Her abdominal CT showed gallbladder distention with prominence of the common bile duct and pancreatic duct. Her case was discussed with Dr. Sánchez and she was admitted for GI consult. This morning she is feeling somewhat better. She describes continued epigastric pain which is tolerable with prn pain medication. She denies any further nausea or vomiting although she is now having some loose stools. She remains NPO. I did see the pt this morning following u/s of the RUQ. This did show CBD dilation of 11mm and a prominent GB stone. The pt Lipase level was >3800 and Alk Phos was 174 upon admission. Total Bili was 1.6. Pt continues to be NPO [facility] History Medical History: Reports:: Congestive Heart Failure, Chronic Obstructive Pulmonary Disease (COPD), Gastroesophageal Reflux Disease(GERD), Urinary Tract Infection Denies:: Atherosclerotic Heart Disease, Cancer, Diabetes Mellitus Type 1, Diabetes Mellitus Type 2, Gastrointestinal Bleed, Hepatitis, Home Oxygen, Hyperlipidemia, Hypertension, Myocardial Infarction, Seizures, Transient Ischemic Attacks (TIA) Other Medical History: Denies: Anemia, Arthritis, Hypothyroidism, Liver Disease , Thyroid Disease, Unexplained Bleeding Other Surgeries: Yes: Hysterectomy-Total Amputation: No Fractures: No - *Social History Smoking Status: Current every day smoker Tobacco Type: cigarettes Alcohol Intake: never - Psychiatric History Expresses thoughts of harming self/others: None Suicide Plan Description: No Plan *Family Hx:: No significant family history Review of Systems - Review of Systems Review of systems:: pertinent systems reviewed and negative unless documented below - Constitutional Reports anorexia - *Gastrointestinal Reports abdominal pain, Reports change in bowel habits, Reports change in stools , Reports cramping, Reports loose stools, Reports loose stools, Reports nausea, Reports vomiting Meds Home Medications Medication Instructions Recorded Confirmed Type Omeprazole [Omeprazole 40mg 40 mg PO DAILY 05/29/17 05/29/17 History Capsule] Albuterol Sulfate [Albuterol HFA 2 puffs IH Q6HP PRN 05/30/17 05/30/17 History Inhaler] Allergies Allergy/AdvReac Type Severity Reaction Status Date / Time codeine [CODEINE] Allergy Mild Verified 04/26/17 13:04 Exam Vital signs and Labs for Last 24 Hours: Temp Pulse Resp BP Pulse Ox 98.3 F 80 20 133/82 100 05/30/17 07:29 05/30/17 07:29 05/30/17 07:29 05/30/17 07:29 05/30/17 07:29 Laboratory Results - last 24 hr 05/30/17 06:30: WBC 8.0, RBC 3.83 L, Hgb 13.3, Hct 41.1, MCV 107.3 H, MCH 34.8 H , MCHC 32.4, RDW 12.0, Plt Count 153, MPV 9.0, Neut % (Auto) 84.0 H, Lymph % ( Auto) 10.1, [place] % (Auto) 5.0, Eos % (Auto) 0.6, Baso % (Auto) 0.3, Neut # (Auto ) 6.8, Lymph # (Auto) 0.8, [place] # (Auto) 0.4, Eos # (Auto) 0.1, Baso # (Auto) 0.0 05/30/17 06:30: Sodium 136, Potassium 3.5, Chloride 96 L, Carbon Dioxide 29, Anion Gap 14.5, BUN 7, Creatinine 0.69 D, Estimated Creat Clear 71, Estimated GFR 89, Est GFR (Afri
--- NOTE | 2017-05-30 14:35 | HMH.GSCON ---
*Admission Date: 05/29/17 *Chief complaint: Pancreatitis *History of present illness: This is a 51-year-old female seen in consultation from her primary service and gastroenterology after presenting to the emergency department with epigastric pain and nausea/vomiting. She was found to have biochemical evidence of pancreatitis. An ultrasound of the gallbladder earlier today reveals gallstones. Per this ultrasound and prior CT scan, she does have some common bile duct dilatation at 11 m, but no definitive stone within the common bile duct. Review of Systems - Constitutional Denies body ache(s) - Eyes Denies change in vision - ENT Denies change in voice - *Cardiovascular Denies chest pain - *Gastrointestinal Reports abdominal pain - *Neurologic Denies abnormal movements - Psychiatric Denies anxiety - Hematologic/Lymphatic Denies easy bleeding [facility] History Medical History: Reports:: Congestive Heart Failure, Chronic Obstructive Pulmonary Disease (COPD), Gastroesophageal Reflux Disease(GERD), Urinary Tract Infection Denies:: Atherosclerotic Heart Disease, Cancer, Diabetes Mellitus Type 1, Diabetes Mellitus Type 2, Gastrointestinal Bleed, Hepatitis, Home Oxygen, Hyperlipidemia, Hypertension, Myocardial Infarction, Seizures, Transient Ischemic Attacks (TIA) Other Medical History: Denies: Anemia, Arthritis, Hypothyroidism, Liver Disease, Thyroid Disease, Unexplained Bleeding Other Surgeries: Yes: Hysterectomy-Total Amputation: No Fractures: No - *Social History Smoking Status: Current every day smoker Tobacco Type: cigarettes Alcohol Intake: never - Psychiatric History Expresses thoughts of harming self/others: None Suicide Plan Description: No Plan *Family Hx:: No significant family history Meds Home Medications Medication Instructions Recorded Confirmed Type Omeprazole [Omeprazole 40mg 40 mg PO DAILY 05/29/17 05/29/17 History Capsule] Albuterol Sulfate [Albuterol HFA 2 puffs IH Q6HP PRN 05/30/17 05/30/17 History Inhaler] Allergies Allergy/AdvReac Type Severity Reaction Status Date / Time codeine [CODEINE] Allergy Mild Verified 04/26/17 13:04 Exam Vital signs and Labs for Last 24 Hours: Temp Pulse Resp BP Pulse Ox 98.3 F 80 20 133/82 100 05/30/17 07:29 05/30/17 07:29 05/30/17 07:29 05/30/17 07:29 05/30/17 07:29 Laboratory Results - last 24 hr 05/30/17 06:30: WBC 8.0, RBC 3.83 L, Hgb 13.3, Hct 41.1, MCV 107.3 H, MCH 34.8 H, MCHC 32.4, RDW 12.0, Plt Count 153, MPV 9.0, Neut % (Auto) 84.0 H, Lymph % (Auto) 10.1, [place] % (Auto) 5.0, Eos % (Auto) 0.6, Baso % (Auto) 0.3, Neut # (Auto) 6.8, Lymph # (Auto) 0.8, [place] # (Auto) 0.4, Eos # (Auto) 0.1, Baso # (Auto) 0.0 05/30/17 06:30: Sodium 136, Potassium 3.5, Chloride 96 L, Carbon Dioxide 29, Anion Gap 14.5, BUN 7, Creatinine 0.69 D, Estimated Creat Clear 71, Estimated GFR 89, Est GFR ( Amer) 108 D, Glucose 84 D, Calcium 9.0, Magnesium 1.6, Total Bilirubin 1.2 H, AST 44 H D, ALT 28, Alkaline Phosphatase 153 H, Total Protein 8.6 H, Albumin 3.9 D, Globulin 4.7 H, Albumin/Globulin Ratio 0.8 L, Triglycerides 55, Cholesterol 166, LDL Cholesterol 71, VLDL Cholesterol 11, HDL Cholesterol 84, Cholesterol/HDL Ratio 2.0, Amylase 393 H*, Lipase 6138 H I & O for Last 24 hours: Intake & Output 05/28/17 05/29/17 05/30/17 05/31/17 11:59 11:59 11:59 11:59 Intake Total 552 / 552 Balance 552 / 552 Weight 103 lb 8 oz - Constitutional no acute distress - *Routine Respiratory Exam Absent: respiratory distress - *Routine Cardiovascular Exam Present: RRR - *Routine Abdominal Exam Present: soft, tenderness (mostly epigastric) Results - Labs 05/30/17 06:30 05/30/17 06:30 Laboratory Results - last 24 hr 05/30/17 06:30: WBC 8.0, RBC 3.83 L, Hgb 13.3, Hct 41.1, MCV 107.3 H, MCH 34.8 H, MCHC 32.4, RDW 12.0, Plt Count 153, MPV 9.0, Neut % (Auto) 84.0 H, Lymph % (Auto) 10.1, [place] % (Auto
--- NOTE | 2017-05-30 14:38 | P.CONS_ITS ---
*Admission Date: 05/29/17 *Chief complaint: Pancreatitis *History of present illness: This is a 51-year-old female seen in consultation from her primary service and gastroenterology after presenting to the emergency department with epigastric pain and nausea/vomiting. She was found to have biochemical evidence of pancreatitis. An ultrasound of the gallbladder earlier today reveals gallstones. Per this ultrasound and prior CT scan, she does have some common bile duct dilatation at 11 m, but no definitive stone within the common bile duct. Review of Systems - Constitutional Denies body ache(s) - Eyes Denies change in vision - ENT Denies change in voice - *Cardiovascular Denies chest pain - *Gastrointestinal Reports abdominal pain - *Neurologic Denies abnormal movements - Psychiatric Denies anxiety - Hematologic/Lymphatic Denies easy bleeding [facility] History Medical History: Reports:: Congestive Heart Failure, Chronic Obstructive Pulmonary Disease (COPD), Gastroesophageal Reflux Disease(GERD), Urinary Tract Infection Denies:: Atherosclerotic Heart Disease, Cancer, Diabetes Mellitus Type 1, Diabetes Mellitus Type 2, Gastrointestinal Bleed, Hepatitis, Home Oxygen, Hyperlipidemia, Hypertension, Myocardial Infarction, Seizures, Transient Ischemic Attacks (TIA) Other Medical History: Denies: Anemia, Arthritis, Hypothyroidism, Liver Disease , Thyroid Disease, Unexplained Bleeding Other Surgeries: Yes: Hysterectomy-Total Amputation: No Fractures: No - *Social History Smoking Status: Current every day smoker Tobacco Type: cigarettes Alcohol Intake: never - Psychiatric History Expresses thoughts of harming self/others: None Suicide Plan Description: No Plan *Family Hx:: No significant family history Meds Home Medications Medication Instructions Recorded Confirmed Type Omeprazole [Omeprazole 40mg 40 mg PO DAILY 05/29/17 05/29/17 History Capsule] Albuterol Sulfate [Albuterol HFA 2 puffs IH Q6HP PRN 05/30/17 05/30/17 History Inhaler] Allergies Allergy/AdvReac Type Severity Reaction Status Date / Time codeine [CODEINE] Allergy Mild Verified 04/26/17 13:04 Exam Vital signs and Labs for Last 24 Hours: Temp Pulse Resp BP Pulse Ox 98.3 F 80 20 133/82 100 05/30/17 07:29 05/30/17 07:29 05/30/17 07:29 05/30/17 07:29 05/30/17 07:29 Laboratory Results - last 24 hr 05/30/17 06:30: WBC 8.0, RBC 3.83 L, Hgb 13.3, Hct 41.1, MCV 107.3 H, MCH 34.8 H , MCHC 32.4, RDW 12.0, Plt Count 153, MPV 9.0, Neut % (Auto) 84.0 H, Lymph % ( Auto) 10.1, [place] % (Auto) 5.0, Eos % (Auto) 0.6, Baso % (Auto) 0.3, Neut # (Auto ) 6.8, Lymph # (Auto) 0.8, [place] # (Auto) 0.4, Eos # (Auto) 0.1, Baso # (Auto) 0.0 05/30/17 06:30: Sodium 136, Potassium 3.5, Chloride 96 L, Carbon Dioxide 29, Anion Gap 14.5, BUN 7, Creatinine 0.69 D, Estimated Creat Clear 71, Estimated GFR 89, Est GFR ( Amer) 108 D, Glucose 84 D, Calcium 9.0, Magnesium 1.6 , Total Bilirubin 1.2 H, AST 44 H D, ALT 28, Alkaline Phosphatase 153 H, Total Protein 8.6 H, Albumin 3.9 D, Globulin 4.7 H, Albumin/Globulin Ratio 0.8 L, Triglycerides 55, Cholesterol 166, LDL Cholesterol 71, VLDL Cholesterol 11, HDL Cholesterol 84, Cholesterol/HDL Ratio 2.0, Amylase 393 H*, Lipase 6138 H I & O for Last 24 hours: Intake & Output 05/28/17 05/29/17 05/30/17 05/31/17 11:59 11:59 11:59 11:59 Intake Total
[2017-05-30 15:23] VITALS: BMI 16.6
[2017-05-30 15:40] VITALS: BP 135/86; PULSE 73; RESP 20; TEMP 36.9; O2SAT 98
[2017-05-30 20:00] VITALS: BP 140/77; PULSE 94; RESP 18; TEMP 36.9; O2SAT 97
--- NOTE | 2017-05-30 20:16 | PC.NURSE ---
LATE ENTRY NOTE: DR LEMUS AT BS AND STATING PT CAN HAVE CLEARS WITH NO CARBONATION. STS GOING TO PUT IN AN ORDER FOR SIPS AND CHIP R/T NOT WANTING PT TO GET A FULL TRAY OF CLEARS. DR. LANDRUM ALSO AT BEDSIDE THIS AFTERNOON STATING PT WILL BE ADVANCED TO BLAND DIET IN THE AM.
[2017-05-31 04:00] VITALS: BP 129/77; PULSE 85; RESP 18; TEMP 36.9; O2SAT 97
--- NOTE | 2017-05-31 04:28 | PC.NURSE ---
PT HAS NOT SLEPT. PT SOMEWHAT ANXIOUS. REQUESTING MORPHINE EVERY 4 HOURS FOR UPPER ABD PAIN SHE RATES A 7'. NO N/V REPORTED.
--- NOTE | 2017-05-31 06:27 | HMH.GSPN ---
Subjective Patient reports: feels better (Wants to go home) Exam Vital signs and Labs for Last 24 Hours: Temp Pulse Resp BP Pulse Ox 98.4 F 85 18 129/77 97 05/31/17 04:00 05/31/17 04:00 05/31/17 04:00 05/31/17 04:00 05/31/17 04:00 Laboratory Results - last 24 hr 05/30/17 06:30: WBC 8.0, RBC 3.83 L, Hgb 13.3, Hct 41.1, MCV 107.3 H, MCH 34.8 H, MCHC 32.4, RDW 12.0, Plt Count 153, MPV 9.0, Neut % (Auto) 84.0 H, Lymph % (Auto) 10.1, [place] % (Auto) 5.0, Eos % (Auto) 0.6, Baso % (Auto) 0.3, Neut # (Auto) 6.8, Lymph # (Auto) 0.8, [place] # (Auto) 0.4, Eos # (Auto) 0.1, Baso # (Auto) 0.0 05/30/17 06:30: Sodium 136, Potassium 3.5, Chloride 96 L, Carbon Dioxide 29, Anion Gap 14.5, BUN 7, Creatinine 0.69 D, Estimated Creat Clear 71, Estimated GFR 89, Est GFR ( Amer) 108 D, Glucose 84 D, Calcium 9.0, Magnesium 1.6, Total Bilirubin 1.2 H, AST 44 H D, ALT 28, Alkaline Phosphatase 153 H, Total Protein 8.6 H, Albumin 3.9 D, Globulin 4.7 H, Albumin/Globulin Ratio 0.8 L, Triglycerides 55, Cholesterol 166, LDL Cholesterol 71, VLDL Cholesterol 11, HDL Cholesterol 84, Cholesterol/HDL Ratio 2.0, Amylase 393 H*, Lipase 6138 H I & O for Last 24 hours: Intake & Output 05/28/17 05/29/17 05/30/17 05/31/17 11:59 11:59 11:59 11:59 Intake Total 912 / 912 1000 / 1000 Balance 912 / 912 1000 / 1000 Weight 103 lb 8 oz 103 lb 8.007 oz - Constitutional no acute distress - *Routine Respiratory Exam Absent: respiratory distress - *Routine Abdominal Exam Present: soft Progress Note: A&P (1) Acute pancreatitis Status: Acute Assessment and plan: Likely secondary to gallstones. Some clinical improvement over the past 24 hours. Follow-up morning labs Laparoscopic cholecystectomy with intraoperative cholangiogram after pancreatitis resolves I have discussed the risks and benefits of the above-stated plan with the patient. She states that she just wants to go home now and come back later . I do not recommend discharge prior to cholecystectomy and have discussed this with the patient. She states that she understands the risks and still want(s) to go home now . Current Visit: Yes (2) UTI (urinary tract infection) Status: Acute Current Visit: Yes (3) COPD (chronic obstructive pulmonary disease) Status: Acute Current Visit: No (4) Tobacco use Status: Acute Current Visit: No (5) Dilation of biliary tract Status: Acute Current Visit: Yes
--- NOTE | 2017-05-31 06:30 | P.PN_ITS ---
Subjective Patient reports: feels better (Wants to go home) Exam Vital signs and Labs for Last 24 Hours: Temp Pulse Resp BP Pulse Ox 98.4 F 85 18 129/77 97 05/31/17 04:00 05/31/17 04:00 05/31/17 04:00 05/31/17 04:00 05/31/17 04:00 Laboratory Results - last 24 hr 05/30/17 06:30: WBC 8.0, RBC 3.83 L, Hgb 13.3, Hct 41.1, MCV 107.3 H, MCH 34.8 H , MCHC 32.4, RDW 12.0, Plt Count 153, MPV 9.0, Neut % (Auto) 84.0 H, Lymph % ( Auto) 10.1, [place] % (Auto) 5.0, Eos % (Auto) 0.6, Baso % (Auto) 0.3, Neut # (Auto ) 6.8, Lymph # (Auto) 0.8, [place] # (Auto) 0.4, Eos # (Auto) 0.1, Baso # (Auto) 0.0 05/30/17 06:30: Sodium 136, Potassium 3.5, Chloride 96 L, Carbon Dioxide 29, Anion Gap 14.5, BUN 7, Creatinine 0.69 D, Estimated Creat Clear 71, Estimated GFR 89, Est GFR ( Amer) 108 D, Glucose 84 D, Calcium 9.0, Magnesium 1.6 , Total Bilirubin 1.2 H, AST 44 H D, ALT 28, Alkaline Phosphatase 153 H, Total Protein 8.6 H, Albumin 3.9 D, Globulin 4.7 H, Albumin/Globulin Ratio 0.8 L, Triglycerides 55, Cholesterol 166, LDL Cholesterol 71, VLDL Cholesterol 11, HDL Cholesterol 84, Cholesterol/HDL Ratio 2.0, Amylase 393 H*, Lipase 6138 H I & O for Last 24 hours: Intake & Output 05/28/17 05/29/17 05/30/17 05/31/17 11:59 11:59 11:59 11:59 Intake Total 912 / 912 1000 / 1000 Balance 912 / 912 1000 / 1000 Weight 103 lb 8 oz 103 lb 8.007 oz - Constitutional no acute distress - *Routine Respiratory Exam Absent: respiratory distress - *Routine Abdominal Exam Present: soft Progress Note: A&P (1) Acute pancreatitis Status: Acute Assessment and plan: Likely secondary to gallstones. Some clinical improvement over the past 24 hours. Follow-up morning labs Laparoscopic cholecystectomy with intraoperative cholangiogram after pancreatitis resolves I have discussed the risks and benefits of the above-stated plan with the patient. She states that she just wants to go home now and come back later . I do not recommend discharge prior to cholecystectomy and have discussed this with the patient. She states that she understands the risks and still want(s ) to go home now . Current Visit: Yes (2) UTI (urinary tract infection) Status: Acute Current Visit: Yes (3) COPD (chronic obstructive pulmonary disease) Status: Acute Current Visit: No (4) Tobacco use Status: Acute Current Visit: No (5) Dilation of biliary tract Status: Acute Current Visit: Yes
[2017-05-31 07:21] LABS: Alanine Aminotransferase 26 U/L (12-78); Albumin Level 3.4 gm/dL (3.4-5.0); Albumin/Globulin Ratio 0.8 (1.1-1.8); Alkaline Phosphatase 122 U/L (46-116); Amylase 124 U/L (25-125); Aspartate Amino Transferase 35 U/L (15-37); Bilirubin,Total 1.1 mg/dL (0.2-1.0); Blood Urea Nitrogen 7 mg/dL (7-18); Calcium 8.4 mg/dL (8.5-10.1); Carbon Dioxide 28 mmol/L (21.0-32.0); Chloride 97 mmol/L (98-107); Creatinine Clearance Estimated 96 mL/min (0-300); Creatinine,Serum 0.51 mg/dL (0.55-1.02); Estimated Glomerular Filt Rate 127 ml/min (>60); GFR (African American) 153 ML/MIN (>60); Globulin 4.1 gm/dl (1.3-3.2); Glucose 80 mg/dL (74-106); Lipase 1201 u/L (73-393); Sodium 133 mmol/L (136-145); Total Protein,Serum 7.5 gm/dL (6.4-8.2)
[2017-05-31 08:00] VITALS: BP 159/93; PULSE 94; RESP 22; TEMP 36.8; O2SAT 96
[2017-05-31 09:00] VITALS: O2SAT 95
--- NOTE | 2017-05-31 09:50 | HMH.ACPN2 ---
<Yumiko Tian - Last Filed: 05/31/17 09:50> Internal Medicine - PN: Subj *Date: 05/31/17 *Time: 09:50 Interval history: Ms. Bustamante reports feeling much better today. Her pain has greatly improved. She denies any nausea or vomiting, although she continues with some loose stools this morning. She remains NPO. She has been up and about walking on the unit to alleviate boredom, reports she can't go home because I'm having surgery tomorrow. Exam Vital signs and Labs for Last 24 Hours: Temp Pulse Resp BP Pulse Ox 98.3 F 94 H 22 159/93 96 05/31/17 08:00 05/31/17 08:00 05/31/17 08:00 05/31/17 08:00 05/31/17 08:00 Laboratory Results - last 24 hr 05/31/17 06:30: Sodium 133 L, Potassium 3.0 L, Chloride 97 L, Carbon Dioxide 28, Anion Gap 11.0, BUN 7, Creatinine 0.51 L D, Estimated Creat Clear 96, Estimated GFR 127, Est GFR ( Amer) 153 D, Glucose 80, Calcium 8.4 L, Total Bilirubin 1.1 H, AST 35, ALT 26, Alkaline Phosphatase 122 H, Total Protein 7.5, Albumin 3.4 D, Globulin 4.1 H, Albumin/Globulin Ratio 0.8 L, Amylase 124 D, Lipase 1201 H I & O for Last 24 hours: Intake & Output 05/28/17 05/29/17 05/30/17 05/31/17 11:59 11:59 11:59 11:59 Intake Total 912 / 912 1000 / 1000 Balance 912 / 912 1000 / 1000 Weight 103 lb 8 oz 103 lb 8.007 oz - Constitutional no acute distress - *Routine Respiratory Exam Comments: good air movement with bibasilar expiratory wheeze - *Routine Cardiovascular Exam Present: RRR - *Routine Abdominal Exam Present: soft, normoactive bowel sounds, tenderness. Absent: distended, guarding, rigid, organomegaly, mass Comments: very mild epigastric ttp - improved from yesterday - *Routine Extremities Exam Present: full ROM, pulses intact. Absent: edema, calf tenderness - *Routine Skin Exam Present: dry, warm - *Routine Neurological Exam Present: alert, oriented X3, normal speech Assessment and Plan (1) Acute pancreatitis Current visit: Yes Status: Acute Category: Medical Code(s): K85.90 - Acute pancreatitis without necrosis or infection, unspecified (2) UTI (urinary tract infection) Current visit: Yes Status: Acute Category: Medical Code(s): N39.0 - Urinary tract infection, site not specified (3) COPD (chronic obstructive pulmonary disease) Current visit: No Status: Acute Category: Medical Code(s): J44.9 - Chronic obstructive pulmonary disease, unspecified (4) Tobacco use Current visit: No Status: Acute Category: Social Hx Code(s): Z72.0 - Tobacco use (5) Dilation of biliary tract Current visit: Yes Status: Acute Category: Medical Code(s): K83.8 - Other specified diseases of biliary tract - Assessment and plan all Dx Assessment and Plan for all problems:: Pt is improved. Gastroenterology and Surgery input seen and appreciated. Will continue current care. <Jerome Sánchez - Last Filed: 05/31/17 12:45> Internal Medicine - PN: Subj *Date: 05/31/17 *Time: 12:39 Exam Vital signs and Labs for Last 24 Hours: Temp Pulse Resp BP Pulse Ox 98.3 F 94 H 22 159/93 95 05/31/17 08:00 05/31/17 08:00 05/31/17 08:00 05/31/17 08:00 05/31/17 09:00 Laboratory Results - last 24 hr 05/31/17 06:30: Sodium 133 L, Potassium 3.0 L, Chloride 97 L, Carbon Dioxide 28, Anion Gap 11.0, BUN 7, Creatinine 0.51 L D, Estimated Creat Clear 96, Estimated GFR 127, Est GFR ( Amer) 153 D, Glucose 80, Calcium 8.4 L, Total Bilirubin 1.1 H, AST 35, ALT 26, Alkaline Phosphatase 122 H, Total Protein 7.5, Albumin 3.4 D, Globulin 4.1 H, Albumin/Globulin Ratio 0.8 L, Amylase 124 D, Lipase 1201 H I & O for Last 24 hours: Intake & Output 05/29/17 05/30/17 05/31/17 06/01/17 11:59 11:59 11:59 11:59 Intake Total 912 / 912 1240 / 1240 Balance / 2 1240 / 1240 Weight 103 lb 8 oz 103 lb 8.007 oz Assessment and Plan (1) Acute pancreatitis Current visit: Yes Status: Acute Eleanor
--- NOTE | 2017-05-31 09:54 | P.PN_ITS ---
<Yumiko Tian - Last Filed: 05/31/17 09:50> Internal Medicine - PN: Subj *Date: 05/31/17 *Time: 09:50 Interval history: Ms. Bustamante reports feeling much better today. Her pain has greatly improved. She denies any nausea or vomiting, although she continues with some loose stools this morning. She remains NPO. She has been up and about walking on the unit to alleviate boredom, reports she can't go home because I'm having surgery tomorrow. Exam Vital signs and Labs for Last 24 Hours: Temp Pulse Resp BP Pulse Ox 98.3 F 94 H 22 159/93 96 05/31/17 08:00 05/31/17 08:00 05/31/17 08:00 05/31/17 08:00 05/31/17 08:00 Laboratory Results - last 24 hr 05/31/17 06:30: Sodium 133 L, Potassium 3.0 L, Chloride 97 L, Carbon Dioxide 28 , Anion Gap 11.0, BUN 7, Creatinine 0.51 L D, Estimated Creat Clear 96, Estimated GFR 127, Est GFR ( Amer) 153 D, Glucose 80, Calcium 8.4 L, Total Bilirubin 1.1 H, AST 35, ALT 26, Alkaline Phosphatase 122 H, Total Protein 7.5, Albumin 3.4 D, Globulin 4.1 H, Albumin/Globulin Ratio 0.8 L, Amylase 124 D, Lipase 1201 H I & O for Last 24 hours: Intake & Output 05/28/17 05/29/17 05/30/17 05/31/17 11:59 11:59 11:59 11:59 Intake Total 912 / 912 1000 / 1000 Balance 912 / 912 1000 / 1000 Weight 103 lb 8 oz 103 lb 8.007 oz - Constitutional no acute distress - *Routine Respiratory Exam Comments: good air movement with bibasilar expiratory wheeze - *Routine Cardiovascular Exam Present: RRR - *Routine Abdominal Exam Present: soft, normoactive bowel sounds, tenderness. Absent: distended, guarding, rigid, organomegaly, mass Comments: very mild epigastric ttp - improved from yesterday - *Routine Extremities Exam Present: full ROM, pulses intact. Absent: edema, calf tenderness - *Routine Skin Exam Present: dry, warm - *Routine Neurological Exam Present: alert, oriented X3, normal speech Assessment and Plan (1) Acute pancreatitis Current visit: Yes Status: Acute Category: Medical Code(s): K85.90 - Acute pancreatitis without necrosis or infection, unspecified (2) UTI (urinary tract infection) Current visit: Yes Status: Acute Category: Medical Code(s): N39.0 - Urinary tract infection, site not specified (3) COPD (chronic obstructive pulmonary disease) Current visit: No Status: Acute Category: Medical Code(s): J44.9 - Chronic obstructive pulmonary disease, unspecified (4) Tobacco use Current visit: No Status: Acute Category: Social Hx Code(s): Z72.0 - Tobacco use (5) Dilation of biliary tract Current visit: Yes Status: Acute Category: Medical Code(s): K83.8 - Other specified diseases of biliary tract - Assessment and plan all Dx Assessment and Plan for all problems:: Pt is improved. Gastroenterology and Surgery input seen and appreciated. Will continue current care. <Jerome Sánchez - Last Filed: 05/31/17 12:45> Internal Medicine - PN: Subj *Date: 05/31/17 *Time: 12:39 Exam Vital signs and Labs for Last 24 Hours: Temp Pulse Resp BP Pulse Ox 98.3 F 94 H 22 159/93 95 05/31/17 08:00 05/31/17 08:00 05/31/17 08:00 05/31/17 08:00 05/31/17 09:00 Laboratory Results - last 24 hr 05/31/17 06:30: Sodium 133 L, Potassium 3.0 L, Chloride 97 L, Carbon Dioxide 28 , Anion Gap 11.0, BUN 7, Creatinine 0.51 L D, Estimated Creat Clear 96,
--- NOTE | 2017-05-31 12:45 | HMH.DCSUM ---
General - General Admission date: 05/29/17 <Jerome Sánchez - 05/31/17 12:54> Discharge date: 05/31/17 <Carmen Licea - 06/04/17 11:02> HPI HPI: Ms. Bustamante is a 51yo WF with a history of COPD and GERD who is not currently established with a PCP. She presented to [facility] ED yesterday after experiencing about 12 hours of epigastric pain accompanied by nausea and vomiting. Upon arrival, her amylase and lipase were elevated and UA showed her to have a UTI. Her abdominal CT showed gallbladder distention with prominence of the common bile duct and pancreatic duct. Her case was discussed with Dr. Sánchez and she was admitted for GI consult. <Carmen Licea - 06/04/17 11:02> Hospital Course Hospital Course: It was felt after reviewing her CT scan, she had gallstone pancreatitis. The U/S did show CBD dilation of 11mm and a prominent GB stone. Dr. Rodas and Dr. Isbell both saw the patient in consultation. Dr. Isbell felt the pancreatitis needed to cool down and then a laparoscopic cholecystectomy with intraoperative cholangiogram should be done. If her bilirubin rises again after this, then she will need ERCP. Dr. Rodas discussed the risks and benefits of the above-stated plan with the patient. She began feeling much better and her pain improved. Amylase, lipase and bilirubin continued to improve but were not normal. Dr. Rodas wanted to plan for lap ana paula during the admission once her enzymes were normal, however the patient insisted on going home. 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 She was agreeable to returning for f/u with surgery in a week and arranging for outpt lap ana paula. She was discharged home on [place] and Zofran and schedule for outpt f/u with Dr. Nance (Dr. Rodas is out of town) on Tuesday with repeat labs. She was instructed on a strict low fat diet and to return to ER if pain worsens, she has recurrent vomiting, or she develops fever. <Carmen Licea - 06/04/17 11:02> Objective Vital signs: Temp Pulse Resp BP Pulse Ox 98.3 F 94 H 22 159/93 95 05/31/17 08:00 05/31/17 08:00 05/31/17 08:00 05/31/17 08:00 05/31/17 09:00 <Carmen Licea - 06/04/17 10:57> Temp Pulse Resp BP Pulse Ox 98.3 F 94 H 22 159/93 95 05/31/17 08:00 05/31/17 08:00 05/31/17 08:00 05/31/17 08:00 05/31/17 09:00 <Jerome Sánchez - 05/31/17 12:54> Narrative: - Constitutional no acute distress - *Routine HEENT Exam Head: Present: normocephalic Eye: Present: PERRL, normal accommodation ENT: Present: mucous membranes moist, nares patent - *Routine Neck Exam Present: supple, full ROM. Absent: lymphadenopathy, tenderness - *Routine Respiratory Exam Present: CTA bilaterally - *Routine Cardiovascular Exam Present: RRR - *Routine Abdominal Exam Comments: BS present, soft, not distended, mildly ttp epigastrium, no G/M/R - *Routine Extremities Exam Present: full ROM, pulses intact. Absent: edema, calf tenderness - *Routine Skin Exam Present: dry, warm - *Routine Neurological Exam Present: alert, oriented X3, normal speech <Carmen Licea - 06/04/17 10:54> Results Labs on day of discharge: Labs from last 24 hours 05/31/17 06:30 Sodium 133 L Potassium 3.0 L Chloride 97 L Carbon Dioxide 28 Anion Gap 11.0 BUN 7 Creatinine 0.51 L D Estimated Creat Clear 96 Estimated GFR 127 Est GFR ( Amer) 153 D Glucose 80 Calcium 8.4 L Total Bilirubin 1.1 H AST 35 ALT 26 Alkaline Phosphatase 122 H Total Protein 7.5 Albumin 3.4 D Globulin 4.1 H Albumin/Globulin Ratio 0.8 L Amylase 124 D Lipase 1201 H <Jerome Sánchez - 05/31/17 12:54> DS: Diagnosis - Discharge Diagnosis (1) Acute pancreatitis Status: Acute (2) UTI (urinary tract infection) Status: Acute (3) COPD (chronic obstructive pulmonary disease) Status: Chronic
--- NOTE | 2017-05-31 12:50 | P.DS_ITS ---
General - General Admission date: 05/29/17 <Jerome Sánchez - 05/31/17 12:54> Discharge date: 05/31/17 <Carmen Licea - 06/04/17 11:02> HPI HPI: Ms. Bustamante is a 51yo WF with a history of COPD and GERD who is not currently established with a PCP. She presented to [facility] ED yesterday after experiencing about 12 hours of epigastric pain accompanied by nausea and vomiting. Upon arrival, her amylase and lipase were elevated and UA showed her to have a UTI. Her abdominal CT showed gallbladder distention with prominence of the common bile duct and pancreatic duct. Her case was discussed with Dr. Sánchez and she was admitted for GI consult. <Carmen Licea - 06/04/17 11:02> Hospital Course Hospital Course: It was felt after reviewing her CT scan, she had gallstone pancreatitis. The U/ S did show CBD dilation of 11mm and a prominent GB stone. Dr. Rodas and Dr. Isbell both saw the patient in consultation. Dr. Isbell felt the pancreatitis needed to cool down and then a laparoscopic cholecystectomy with intraoperative cholangiogram should be done. If her bilirubin rises again after this, then she will need ERCP. Dr. Rodas discussed the risks and benefits of the above-stated plan with the patient. She began feeling much better and her pain improved. Amylase, lipase and bilirubin continued to improve but were not normal. Dr. Rodas wanted to plan for lap ana paula during the admission once her enzymes were normal, however the patient insisted on going home. 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 She was agreeable to returning for f/u with surgery in a week and arranging for outpt lap ana paula. She was discharged home on [place] and Zofran and schedule for outpt f/u with Dr. Nance (Dr. Rodas is out of town) on Tuesday with repeat labs. She was instructed on a strict low fat diet and to return to ER if pain worsens, she has recurrent vomiting, or she develops fever. <Carmen Licea - 06/04/17 11:02> Objective Vital signs: Temp Pulse Resp BP Pulse Ox 98.3 F 94 H 22 159/93 95 05/31/17 08:00 05/31/17 08:00 05/31/17 08:00 05/31/17 08:00 05/31/17 09:00 <Carmen Licea - 06/04/17 10:57> Temp Pulse Resp BP Pulse Ox 98.3 F 94 H 22 159/93 95 05/31/17 08:00 05/31/17 08:00 05/31/17 08:00 05/31/17 08:00 05/31/17 09:00 <Jerome Sánchez - 05/31/17 12:54> Narrative: - Constitutional no acute distress - *Routine HEENT Exam Head: Present: normocephalic Eye: Present: PERRL, normal accommodation ENT: Present: mucous membranes moist, nares patent - *Routine Neck Exam Present: supple, full ROM. Absent: lymphadenopathy, tenderness - *Routine Respiratory Exam Present: CTA bilaterally - *Routine Cardiovascular Exam Present: RRR - *Routine Abdominal Exam Comments: BS present, soft, not distended, mildly ttp epigastrium, no G/M/R - *Routine Extremities Exam Present: full ROM, pulses intact. Absent: edema, calf tenderness - *Routine Skin Exam Present: dry, warm - *Routine Neurological Exam Present: alert, oriented X3, normal speech <Carmen Licea - 06/04/17 10:54> Results Labs on day of discharge: Labs from last 24 hours 05/31/17 06:30 Sodium 133 L Potassium 3.0 L Chloride 97 L Carbon Dioxide 28 Anion Gap 11.0 BUN 7 Creatinine 0.51 L D Estimated Creat
[2017-06-01 14:38] VITALS: BMI 16.5
== END 2017-05-31 14:00 | disposition home or self-care (01) | DRG 439 ==
LOC: ER 16:56 → 2ND 17:02
PROVIDERS: Surgery; Admitting Provider Family Medicine; Emergency Provider Emergency Medicine; PCP Family Medicine; Visit Provider Family Medicine
DX: K85.90 Acute pancreatitis without necrosis or infection, unspecified (principal); N39.0 Urinary tract infection, site not specified; I50.9 Heart failure, unspecified; J44.9 Chronic obstructive pulmonary disease, unspecified; Z72.0 Tobacco use
CPT/HCPCS: 36415; 74177; 76705; 80053; 80061; 81001; 82150; 82550; 82553; 83605; 83690; 83735; 84484; 85007; 85025; 87040; 87086; 93005; 96374; 96375; 96376; 99284; J2405; Q9967

== ENCOUNTER → 2017-06-06 13:07 | Outpatient (CLI) | payer OTHER, SELFPAY ==
[2017-06-06 13:41] LABS: Basophils # 0.1 K/mm3 (0-0.2); Basophils % 1.3 % (0.1-2.0); Eosinophils # 0.1 K/mm3 (0.0-0.4); Eosinophils % 1.4 % (0.1-12.0); Hemoglobin 13.2 g/dL (12.2-16.2); Lymphocytes # 1.8 K/mm3 (0.7-4.5); Lymphocytes % 40.2 K/mm3 (10-50); Mean Corpuscular HGB Conc 31.5 g/dL (31.8-35.4); Mean Corpuscular Hemoglobin 33.7 pg (27.0-31.2); Monocytes # 0.3 K/mm3 (0.1-1.0); Monocytes % 6.3 % (1.7-9.3); Neutrophils # 2.2 K/mm3 (1.8-7.8); Neutrophils % 50.8 % (37.0-80.0); Platelet Count 318 K/mm3 (142-424); Red Blood Count 3.92 M/mm3 (4.20-5.40); Red Cell Distribution Width 11.9 % (11.5-17.5); White Blood Count 4.4 K/mm3 (4.8-10.8)
[2017-06-06 13:49] LABS: INR 0.97 (0.9-1.1); Prothrombin Time 10.5 seconds (9.4-11.8)
[2017-06-06 13:54] LABS: Alanine Aminotransferase 28 U/L (12-78); Albumin Level 3.8 gm/dL (3.4-5.0); Albumin/Globulin Ratio 0.7 (1.1-1.8); Alkaline Phosphatase 158 U/L (46-116); Amylase 204 U/L (25-125); Anion Gap 14.1 mEq/L (5-15); Aspartate Amino Transferase 46 U/L (15-37); Bilirubin,Total 0.2 mg/dL (0.2-1.0); Blood Urea Nitrogen 3 mg/dL (7-18); Carbon Dioxide 31 mmol/L (21.0-32.0); Chloride 100 mmol/L (98-107); Creatinine,Serum 0.52 mg/dL (0.55-1.02); Estimated Glomerular Filt Rate 124 ml/min (>60); GFR (African American) 150 ML/MIN (>60); Globulin 5.6 gm/dl (1.3-3.2); Glucose 98 mg/dL (74-106); Lipase 2248 u/L (73-393); Potassium 3.1 mmoL/L (3.5-5.1); Sodium 142 mmol/L (136-145); Total Protein,Serum 9.4 gm/dL (6.4-8.2)
== END ==
PROVIDERS: PCP Family Medicine; Visit Provider Surgery
DX: K85.90 Acute pancreatitis without necrosis or infection, unspecified (principal)
CPT/HCPCS: 36415; 80053; 82150; 83690; 85025; 85610

== ENCOUNTER 2017-06-08 12:45 | Inpatient (IN) | payer OTHER, SELFPAY ==
[2017-06-08 12:47] VITALS: BP 146/60; PULSE 90; RESP 20; O2SAT 100; BMI 16.5
--- NOTE | 2017-06-08 13:11 | XR_ITS ---
XR chest 2V HISTORY: ITS.REASON: cough, soa ORDERING PHYSICIAN: Markel Keen MD PATIENT AGE: 51 years COMPARISON: 04/26/2017 FINDINGS: The cardiomediastinal silhouette and pulmonary vascularity are within normal limits. Hyperinflation with attenuation of the peripheral pulmonary vessels consistent with obstructive pulmonary disease. Fibrotic changes are present in the right apex. No lobar consolidation or collapse. Old granulomatous disease.. Degenerative change thoracic spine with mild lower thoracic scoliosis convex left No acute bony abnormalities. IMPRESSION: COPD with scarring in the right apex. No change with no acute finding
--- NOTE | 2017-06-08 13:42 | HMH.EDGENADL ---
ED Disposition Clinical Impression: Pancreatitis Qualifiers: Chronicity: acute Pancreatitis type: unspecified pancreatitis type Acute pancreatitis complication: no infection or necrosis Qualified Code(s): K85.90 - Acute pancreatitis without necrosis or infection, unspecified Alcohol intoxication Qualifiers: Complication of substance-induced condition: uncomplicated Qualified Code(s): F10.920 - Alcohol use, unspecified with intoxication, uncomplicated Cholelithiasis Qualifiers: Cholelithiasis location: gallbladder Cholecystitis presence: without cholecystitis Biliary obstruction: without biliary obstruction Qualified Code(s): K80.20 - Calculus of gallbladder without cholecystitis without obstruction Disposition: Still a Patient Condition on Discharge: Good - Critical Care Critical Care Time: No Attestation: On 06/08/17, the high probability of a clinically significant, sudden or life threatening deterioration of the following system(s) required my full and direct attention, intervention and personal management. The time I documented below is in addition to time spent performing reported procedures but includes the following listed in this critical care notation. Medical Decision Making - Jose Inquiry Pt receiving controlled substance: No Vital Signs: 06/08/17 12:47 06/08/17 16:42 Temperature 97.6 F Temperature Source Oral Pulse Rate 88 Pulse Rate [Left Radial] 90 Respiratory Rate 20 18 Blood Pressure 139/93 Blood Pressure [Right Arm] 146/60 Blood Pressure Mean [Right Arm] 88 Blood Pressure Source Automatic Cuff Blood Pressure Position Sitting Blood Pressure Position [Right Arm] Right Lateral 02 Sat by Pulse Oximetry 100 Oxygen Delivery Method Room Air Room Air - Lab Data Lab Results 06/08/17 14:24: WBC 4.6 L, RBC 3.93 L, Hgb 13.1, Hct 41.7, MCV 106.2 H, MCH 33.3 H, MCHC 31.4 L, RDW 12.3, Plt Count 338, MPV 8.1, Neut % (Auto) 56.4, Lymph % (Auto) 35.1, [place] % (Auto) 5.2, Eos % (Auto) 1.8, Baso % (Auto) 1.5, Neut # (Auto) 2.6, Lymph # (Auto) 1.6, [place] # (Auto) 0.2, Eos # (Auto) 0.1, Baso # (Auto) 0.1 06/08/17 14:24: Sodium 140, Potassium 3.2 L, Chloride 102, Carbon Dioxide 31, Anion Gap 10.2, BUN 2 L D, Creatinine 0.42 L, Estimated Creat Clear 114, Estimated GFR 158, Est GFR ( Amer) 192 D, Glucose 84, Calcium 8.1 L, Total Bilirubin 0.1 L, AST 48 H, ALT 24, Alkaline Phosphatase 127 H, Total Protein 8.2, Albumin 3.3 L, Globulin 4.9 H, Albumin/Globulin Ratio 0.7 L, Amylase 144 H, Lipase 1642 H, Plasma/Serum Alcohol 382 H* Result diagrams: 06/08/17 14:24 06/08/17 14:24 Orders (Tests/Meds): ED MEDICATIONS Generic Name Dose Route Start Last Admin Trade Name Freq PRN Reason Stop Dose Admin Folic Acid 1 mg 06/09/17 09:00 Folic Acid 1mg Tablet PO 07/09/17 08:59 DAILY NEHAL Haloperidol 5 mg 06/08/17 16:38 Haldol 5mg Tablet PO 07/08/17 16:37 Q1HP PRN Agitation Sodium Chloride 1,000 mls @ 150 mls/hr 06/08/17 16:38 Sod Chlor 0.9% 1000ml Bag IV 07/08/17 14:14 .[facility] Multivitamins 1 each 06/08/17 17:00 Multi-Vitamin Plain PO 07/08/17 16:59 1700 [facility] Nicotine 21 mg 06/08/17 16:38 Nicoderm 21mg/24hr Patch TD 07/08/17 16:37 DAILYP PRN Nicotine Cravings Ondansetron HCl 4 mg 06/08/17 16:38 Zofran 4mg/2ml Vial IV 07/08/17 16:37 Q8HP PRN Nausea Oxazepam 15 mg 06/10/17 16:27 Serax 15mg Capsule PO 07/10/17 16:26 Q6H NEHAL Oxazepam 30 mg 06/08/17 16:38 Serax 15mg Capsule PO 06/10/17 10:39 Q6H NEHAL Thiamine HCl 100 mg 06/09/17 09:00 Vitamin B-1 100mg Tablet PO 06/11/17 09:01 DAILY NEHAL Discontinued Medications Generic Name Dose Route Start Last Admin Trade Name Freq PRN Reason Stop Dose Admin Sodium Chloride 1,000 mls @ 150 mls/hr 06/08/17 14:15 06/08/17 14:12 Sod Chlor 0.9% 1000ml Bag IV 07/08/17 14:14 150 mls/hr .Q6H40M NEHAL
[2017-06-08 14:35] LABS: Basophils # 0.1 K/mm3 (0-0.2); Basophils % 1.5 % (0.1-2.0); Eosinophils # 0.1 K/mm3 (0.0-0.4); Eosinophils % 1.8 % (0.1-12.0); Hematocrit 41.7 % (37.0-47.0); Hemoglobin 13.1 g/dL (12.2-16.2); Lymphocytes # 1.6 K/mm3 (0.7-4.5); Lymphocytes % 35.1 K/mm3 (10-50); Mean Corpuscular HGB Conc 31.4 g/dL (31.8-35.4); Mean Corpuscular Hemoglobin 33.3 pg (27.0-31.2); Mean Corpuscular Volume 106.2 fl (81-99); Mean Platelet Volume 8.1 fl (7.4-10.4); Monocytes # 0.2 K/mm3 (0.1-1.0); Monocytes % 5.2 % (1.7-9.3); Neutrophils # 2.6 K/mm3 (1.8-7.8); Neutrophils % 56.4 % (37.0-80.0); Platelet Count 338 K/mm3 (142-424); Red Blood Count 3.93 M/mm3 (4.20-5.40); Red Cell Distribution Width 12.3 % (11.5-17.5); White Blood Count 4.6 K/mm3 (4.8-10.8)
[2017-06-08 15:03] LABS: Alanine Aminotransferase 24 U/L (12-78); Albumin Level 3.3 gm/dL (3.4-5.0); Albumin/Globulin Ratio 0.7 (1.1-1.8); Alkaline Phosphatase 127 U/L (46-116); Amylase 144 U/L (25-125); Anion Gap 10.2 mEq/L (5-15); Blood Urea Nitrogen 2 mg/dL (7-18); Calcium 8.1 mg/dL (8.5-10.1); Carbon Dioxide 31 mmol/L (21.0-32.0); Chloride 102 mmol/L (98-107); Creatinine Clearance Estimated 114 mL/min (0-300); Creatinine,Serum 0.42 mg/dL (0.55-1.02); Estimated Glomerular Filt Rate 158 ml/min (>60); GFR (African American) 192 ML/MIN (>60); Globulin 4.9 gm/dl (1.3-3.2); Glucose 84 mg/dL (74-106); Lipase 1642 u/L (73-393); Sodium 140 mmol/L (136-145); Total Protein,Serum 8.2 gm/dL (6.4-8.2)
[2017-06-08 15:22] LABS: Ethyl Alcohol 382 mg/dL (0-99)
[2017-06-08 15:23] LABS: Bilirubin,Total 0.1 mg/dL (0.2-1.0)
[2017-06-08 15:24] LABS: Aspartate Amino Transferase 48 U/L (15-37); Potassium 3.2 mmoL/L (3.5-5.1)
--- NOTE | 2017-06-08 16:02 | PC.NURSE ---
CASE DISCUSSED WITH DR EDOUARD THEN DR KEEN. PATIENT TO BE ADMITTED TO ROOM 211 WITH DX PANCREATITS,ALCOHOL INTOXICATION AND CHOLELITHIASIS
[2017-06-08 16:38] VITALS: O2SAT 98
[2017-06-08 16:42] VITALS: BP 139/93; PULSE 88; RESP 18; TEMP 36.4; O2SAT 99
--- NOTE | 2017-06-08 16:47 | HMH.HP ---
*Admission Date: 06/08/17 *History of present illness: Ms Bustamante is a 51 year old female with a history of COPD, GERD, and CHF who presented to [facility] ER stating that she had a cough and thought that she might have pneumonia. She also stated that she is supposed to be admitted tomorrow for gallbladder surgery and just wants to stay in the hospital until then. She wanted to be admitted. She described a cough for months with clear bubbly sputum. She felt feverish at home, but without documented fevers. She also stated that she was recently admitted to the hospital with pneumonia and GB issues and had to return to be readmitted. Review of records reveal a previous admission this year from 05/29/2017 until 05/31/2017 with pancreatitis. It was felt to be alcoholic pancreatitis, but she also was noted to have gallstones. She was supposed to have a cholecystectomy while in the hospital, but refused sherri was scheduled for an OP surgery. She also has been having problems with epigastric for months which is now constant. She is a heavy drinker. States she does not currently have a primary care provider. With this exam pt denies cough and fever. She has had diarrhea, nausea and abdominal pain. Elevated ETOH level, amylase and lipase noted. [facility] History I have reviewed the patient's past medical history: Yes Medical History: Reports:: Congestive Heart Failure, Chronic Obstructive Pulmonary Disease (COPD), Gastroesophageal Reflux Disease(GERD), Urinary Tract Infection Denies:: Atherosclerotic Heart Disease, Cancer, Diabetes Mellitus Type 1, Diabetes Mellitus Type 2, Gastrointestinal Bleed, Hepatitis, Home Oxygen, Hyperlipidemia, Hypertension, Internal Pacemaker, MRSA, Myocardial Infarction, Seizures, Transient Ischemic Attacks (TIA) Other Medical History: Denies: Anemia, Arthritis, Hypothyroidism, Liver Disease, Thyroid Disease, Unexplained Bleeding Laterality Cases: Bilateral: Other Other Surgeries: Yes: Hysterectomy-Total. No: Pacemaker Amputation: No Fractures: No - *Social History Smoking Status: Current every day smoker Tobacco Type: cigarettes # Packs/Day (cigarettes): 1 Alcohol Intake: current Alcohol Intake Frequency:: a few times a week Substance Use Type: marijuana Occupational Status: unemployed Housing: house Household Members: friend(s) Comment: drank 4 beers today - Psychiatric History Expresses thoughts of harming self/others: None Suicide Plan Description: No Plan *Family Hx:: Cancer Review of Systems - Constitutional Denies body ache(s), Denies chills, Denies fever(s), Denies headache(s) - ENT Denies ear pain, Denies sore throat - *Cardiovascular Denies chest pain, Denies shortness of breath, Denies leg swelling, Denies lightheadedness - *Respiratory Denies chest congestion, Denies cough, Denies shortness of breath - *Gastrointestinal Reports abdominal pain, Reports change in bowel habits, Reports heartburn, Reports loose stools, Reports nausea, Denies difficulty swallowing, Denies vomiting blood, Denies vomiting - *Genitourinary Denies painful urination, Denies urinary incontinence - *Musculoskeletal Denies joint pain, Denies body aches - *Neurologic Denies abnormal walking, Denies abnormal speech, Denies behavioral changes - Psychiatric Reports irritability Meds Home Medications Medication Instructions Recorded Confirmed Type Omeprazole [Omeprazole 40mg 40 mg PO DAILY 05/29/17 06/08/17 History Capsule] Albuterol Sulfate [Albuterol HFA 2 puffs IH Q6HP PRN 05/30/17 06/08/17 History Inhaler] Allergies Allergy/AdvReac Type Severity Reaction Status Date / Time codeine [CODEINE] Allergy Mild Verified 06/06/17 14:36 Exam Vital signs and Labs for Last 24 Hours: Temp Pulse Resp BP Pulse Ox 97.6 F 88 18 139/93 100 06/08/17 16:42 06/08/17 16:42 06/08/17 16:42 06/08/17 16:42 06/08/17 12:47 Radiology Reports for the Last 24 Hours: 06/08/16 C
[2017-06-08 16:57] VITALS: BP 154/90; PULSE 97; RESP 18; TEMP 36.4; O2SAT 100; BMI 17.6
--- NOTE | 2017-06-08 17:31 | PC.NURSE ---
PATIENT ARRIVED TO FLOOR AND IMMEDIATELY STATED SHE WAS GOING TO WALK AROUND ON FLOOR, WELL GO OUTSIDE. SHE DID SIGN OFF UNIT CONSENT. AFTER SPEAKING WITH MD HE STATED THAT HE DID NOT WANT THE PATIENT TO LEAVE THE FLOOR BECAUSE OF HER BLOOD ALCOHOL LEVEL. PATIENT WAS EDUCATED BY THIS BY BOTH THE NURSING STAFF AND MD. SHE DID WALK FLOOR, AND IS AT THIS TIME VISITING WITH A FRIEND WHO IS ALSO ADMITTED TO THE HOSPITAL. WILL CONTINUE TO MONITOR THIS
[2017-06-08 17:36] LABS: Prothrombin Time 10.8 seconds (9.4-11.8)
[2017-06-08 17:37] LABS: Activated Partial Thrombo Time 32.4 seconds (23.6-34.0)
[2017-06-08 17:38] LABS: Magnesium 1.5 mg/dL (1.4-2.2)
[2017-06-08 17:42] LABS: Phosphorous 3.7 mg/dL (2.4-4.9)
[2017-06-08 18:31] LABS: Amphetamine/Metha Screen,Urine Negative ng/mL (<1000); Barbiturates Screen,Urine Negative ng/mL (<200); Benzodiazepines Screen,Urine Negative ng/mL (200); Cannabinoid Screen,Urine Positive ng/mL (<50); Cocaine Screen,Urine Negative ng/g (<300); Methadone Screen,Urine Negative ng/mL (<300); Opiate Screen,Urine Negative ng/mL (<300); Phencyclidine Screen,Urine Negative ng/mL (<25)
--- NOTE | 2017-06-08 19:14 | PC.NURSE ---
REPORT GIVEN TO GORDO
[2017-06-08 19:34] VITALS: BP 127/77; PULSE 87; RESP 18; TEMP 36.9; O2SAT 99
--- NOTE | 2017-06-08 19:36 | PC.NURSE ---
pt stated she wasnt going to wear khanh hose because she was costantly up walking.
[2017-06-08 21:30] VITALS: O2SAT 99
[2017-06-09] VITALS (18 sets, daily range): BP systolic 124–170; BP diastolic 70–110; PULSE 70–106; RESP 16–20; TEMP 36.3–37.1; O2SAT 96–99
--- NOTE | 2017-06-09 05:09 | PC.NURSE ---
PATIENT STATES SHE HAS NOT SLEPT WELL THIS SHIFT. SHE HAS C/O ABD PAIN THROUGHOUT THE NIGHT. SHE DID NOT HAVE ANY PAIN MEDS ORDERED, HOWEVER COMFORT MEASURES (IE: WARM BLANKETS, POSITIONING) WAS ENCOURAGED BY STAFF. PATIENT HAS BEEN COOPERATIVE WITH CARE THIS SHIFT. NO OTHER PROBLEMS NOTED AT THIS TIME. PATIENT HAS BEEN NPO SINCE MIDNIGHT. VSS. WILL CONTINUE TO MONITOR. SAFETY MEASURES IN PLACE, CALL LIGHT IN REACH.
[2017-06-09 06:58] LABS: Ethyl Alcohol 0 mg/dL (0-99)
--- NOTE | 2017-06-09 07:29 | HMH.PHAVTE ---
[facility] Pharmacy VTE Monitoring - Patient Demographics Admission date: 06/08/17 Report Date: 06/09/17 Time: 07:29 Allergies/Adverse Reactions: Patient Allergies codeine [CODEINE] Allergy (Mild, Verified 06/06/17 14:36) Height: 1.68 m Weight: 49.215 kg Patient Problems: Current Active Problems Pancreatitis (Chronic) Alcohol intoxication (Acute) Cholelithiasis (Acute) Medically noncompliant (Chronic) - VTE Risk Labs: VTE Related Lab Results Hgb 13.1 g/dL (12.2-16.2) 06/08/17 14:24 Hct 41.7 % (37.0-47.0) 06/08/17 14:24 Plt Count 338 K/mm3 (142-424) 06/08/17 14:24 PT 10.8 seconds (9.4-11.8) 06/08/17 17:20 INR 1.00 (0.9-1.1) 06/08/17 17:20 APTT 32.4 seconds (23.6-34.0) 06/08/17 17:20 BUN 2 mg/dL (7-18) L D 06/08/17 14:24 Creatinine 0.42 mg/dL (0.55-1.02) L 06/08/17 14:24 Estimated Creat Clear 114 mL/min (0-300) 06/08/17 14:24 Was VTE Risk Assessment Performed: Yes VTE Score: 4 VTE Risk Level: Low Risk - Prophylaxis VTE Prophylaxis Ordered?: Yes Types of VTE Prophylaxis: TEDS Knee High Location of Applied Device: Bilateral Lower Extremeties - VTE Diagnosis Confirmed Treatment or plan recommended: Continue Current Treatment
[2017-06-09 07:42] LABS: Amylase 133 U/L (25-125); Lipase 1710 u/L (73-393)
--- NOTE | 2017-06-09 08:21 | HMH.ACPN2 ---
Internal Medicine - PN: Subj *Date: 06/09/17 *Time: 08:21 Interval history: Patient states she did not sleep all night due to abdominal pain. Her pain is better this morning. She has seen the surgeon this morning and she states he told her he would have to wait on her blood work before deciding about cholecystectomy. Exam Vital signs and Labs for Last 24 Hours: Temp Pulse Resp BP Pulse Ox 97.9 F 90 18 139/80 97 06/09/17 07:22 06/09/17 07:22 06/09/17 07:22 06/09/17 07:22 06/09/17 07:22 Laboratory Results - last 24 hr 06/08/17 17:20: APTT 32.4 06/08/17 17:20: Magnesium 1.5 06/08/17 17:20: PT 10.8, INR 1.00 06/08/17 17:20: Phosphorus 3.7 06/09/17 06:20: Plasma/Serum Alcohol 0 06/09/17 06:20: Amylase 133 H, Lipase 1710 H I & O for Last 24 hours: Intake & Output 06/06/17 06/07/17 06/08/17 06/09/17 11:59 11:59 11:59 11:59 Intake Total 0 / 0 Balance 0 / 0 Weight 108 lb 8 oz - Constitutional no acute distress - *Routine Respiratory Exam Present: rhonchi - *Routine Cardiovascular Exam Present: RRR - *Routine Abdominal Exam Present: soft, normoactive bowel sounds, tenderness (epigastric area) - *Routine Extremities Exam Absent: edema Assessment and Plan (1) Hypokalemia Current visit: No Status: Acute Category: Medical Code(s): E87.6 - Hypokalemia (2) Acute pancreatitis Current visit: No Status: Acute Category: Medical Code(s): K85.90 - Acute pancreatitis without necrosis or infection, unspecified (3) Pancreatitis Current visit: Yes Status: Chronic Qualifiers: Chronicity: acute Pancreatitis type: unspecified pancreatitis type Acute pancreatitis complication: no infection or necrosis Qualified Code(s): K85.90 - Acute pancreatitis without necrosis or infection, unspecified Category: Medical Code(s): K85.90 - Acute pancreatitis without necrosis or infection, unspecified (4) Cholelithiasis Current visit: Yes Status: Acute Qualifiers: Cholelithiasis location: gallbladder Cholecystitis presence: without cholecystitis Biliary obstruction: without biliary obstruction Qualified Code(s): K80.20 - Calculus of gallbladder without cholecystitis without obstruction Category: Medical Code(s): K80.20 - Calculus of gallbladder without cholecystitis without obstruction (5) Alcohol intoxication Current visit: Yes Status: Acute Qualifiers: Complication of substance-induced condition: uncomplicated Qualified Code(s): F10.920 - Alcohol use, unspecified with intoxication, uncomplicated Category: Medical Code(s): F10.929 - Alcohol use, unspecified with intoxication, unspecified (6) Medically noncompliant Current visit: Yes Status: Chronic Category: Medical Code(s): Z91.19 - Patient's noncompliance with other medical treatment and regimen (7) Alcoholism Current visit: No Status: Acute Category: Medical Code(s): F10.20 - Alcohol dependence, uncomplicated (8) COPD (chronic obstructive pulmonary disease) Current visit: No Status: Chronic Category: Medical Code(s): J44.9 - Chronic obstructive pulmonary disease, unspecified (9) Tobacco use Current visit: No Status: Chronic Category: Social Hx Code(s): Z72.0 - Tobacco use - Assessment and plan all Dx Assessment and Plan for all problems:: Alcohol level is 0 today. Of note, the patient's tox screen was positive for marijuana. Her pancreatic enzymes are still elevated. Will await surgery recommendations.
--- NOTE | 2017-06-09 08:42 | HMH.ANESCL ---
[facility] [place] Anesthesia Checklist - Patient Identification Patient Identification: Arm Band - Structural Data Admitted From: Inpatient Planned Operative Procedure/s: lap ana paula with cholangiogram Consent for Planned Operative Procedure(s) Verified: Yes Verified Documents: Surgical Consent, History and Physical - NPO Status Verified Time NPO: 00:00 - Additional verifications Anesthesia Reactions: No - Airway Assessment C-Spine Mobility Assessed: Yes (mp2) TMJ Mobility Assessed: Yes Dentition: Edentulous - Neurological Assessment Level of Consciousness: Awake, Alert - Anesthesia Plan Anesthesia Risk discussed: Yes Anesthesia Plan: Verified ASA Class: III Anesthesia Type: General [facility] [place] Anesthesia HX I have reviewed the patient's past medical history: Yes Medical History: Reports:: Congestive Heart Failure, Chronic Obstructive Pulmonary Disease (COPD), Gastroesophageal Reflux Disease(GERD), Urinary Tract Infection Denies:: Atherosclerotic Heart Disease, Cancer, Diabetes Mellitus Type 1, Diabetes Mellitus Type 2, Gastrointestinal Bleed, Hepatitis, Home Oxygen, Hyperlipidemia, Hypertension, Internal Pacemaker, MRSA, Myocardial Infarction, Seizures, Transient Ischemic Attacks (TIA) Other Medical History: Denies: Anemia, Arthritis, Hypothyroidism, Liver Disease, Thyroid Disease, Unexplained Bleeding Laterality Cases: Bilateral: Other Other Surgeries: Yes: Hysterectomy-Total. No: Pacemaker Amputation: No Fractures: No *Family Hx:: Cancer
--- NOTE | 2017-06-09 10:07 | HMH.OPNOTE ---
Date of procedure: 06/09/17 Pre-op Diagnosis:: Pancreatitis Post-op Diagnosis:: Same Procedure performed:: Laparoscopic cholecystectomy with intraoperative cholangiogram Surgeon:: Scott Nance MD Cv Rn(s):: Rosana Greene ACCOUNTING CONSULTANT:: Isael Lima Anesthesia: GETA Estimated blood loss (mL): 25 Clinical Note:: Patient is a 51-year-old white female with heavy alcohol abuse who was admitted last week with upper abdominal pain and chemical pancreatitis. It was felt to be most likely secondary to alcohol consumption. However she underwent gallbladder ultrasound as she has had some slight derangement of her liver function tests and was found to have gallstone with dilated common bile duct. It was unclear as to the degree of possible biliary pancreatitis along with alcoholic pancreatitis. She has seen Dr. Rodas as consultation during that admission and she also was seen by gastroenterology. Recommendations were for cholecystectomy during that hospitalization with cholangiogram. Patient however refused and requested being discharged. She had arrangements made for early outpatient cholecystectomy with cholangiogram shortly after discharge however the patient refused this as well. Arrangements were made to see me in the office this week to plan for cholecystectomy. She presented to the office this past Tuesday on 06/06/17. She underwent repeat blood work which showed some slight increase in pancreatic enzymes and she was found to have a blood alcohol of 177. Plan was made for early outpatient cholecystectomy with cholangiogram due to the potential for biliary component of her pancreatitis. Patient presented to the emergency department yesterday afternoon complaining of upper abdominal pain. Her pancreatic enzymes actually were showing some improvement but she had a blood alcohol level of 382. Plan was made for admission for IV fluid hydration and planned cholecystectomy with cholangiogram during this admission. This would rule out and prevent future pancreatitis secondary to a surgical biliary etiology. Operative findings:: She has somewhat thickened gallbladder. Cholangiogram revealed diffusely dilated ducts without filling defect or obstruction. Operative note:: Consent was obtained and patient was taken to the operating room. She was given preoperative intravenous antibiotics. General anesthesia was induced via endotracheal tube. Abdomen was prepped and draped in the standard surgical fashion. Subumbilical skin incision was made and while performing abdominal wall lift Veress needle was inserted. CO2 pneumoperitoneum was achieved 15 mmHg. 10/11 mm optical trocar was inserted at the umbilicus. Intraperitoneal contents were visualized. She was positioned in reverse Trendelenburg with left side down. A couple of 5 mm trochars were inserted in the right upper abdomen. 10 mm trocar was inserted in the epigastrium. Gallbladder is easily identified as it was somewhat distended and enlarged. It was moderately thickened. It was grasped and retracted anteriorly and superiorly over the dome of the liver. There were omental adhesions to the gallbladder which were taken down using blunt dissection. Infundibulum/Jha's pouch of the gallbladder was retracted anterior laterally. Blunt dissection was carried out incising the visceral peritoneum. Cystic duct and cystic artery were clearly identified. Cystic duct was isolated. It was clipped proximal to the gallbladder. Through approximately a 2 mm incision in the right upper quadrant taut cholangiocatheter introducer and cholangiocatheter were inserted. Small incision was made in the duct as a ductotomy and cholangiocatheter was inserted into the cystic duct where it was secured with a Hemoclip. Intraoperative cholangiogram was performed revealing diffusely dilated bile duct without any obvious evidence of obstruction or filling defect. Patient was then repositioned and cholangiocathet
--- NOTE | 2017-06-09 10:12 | P.OP_ITS ---
Date of procedure: 06/09/17 Pre-op Diagnosis:: Pancreatitis Post-op Diagnosis:: Same Procedure performed:: Laparoscopic cholecystectomy with intraoperative cholangiogram Surgeon:: Scott Nance MD Component Lab Tech(s):: Rosana Greene CAREERS COUNSELLOR:: Isael Lima Anesthesia: GETA Estimated blood loss (mL): 25 Clinical Note:: Patient is a 51-year-old white female with heavy alcohol abuse who was admitted last week with upper abdominal pain and chemical pancreatitis. It was felt to be most likely secondary to alcohol consumption. However she underwent gallbladder ultrasound as she has had some slight derangement of her liver function tests and was found to have gallstone with dilated common bile duct. It was unclear as to the degree of possible biliary pancreatitis along with alcoholic pancreatitis. She has seen Dr. Rodas as consultation during that admission and she also was seen by gastroenterology. Recommendations were for cholecystectomy during that hospitalization with cholangiogram. Patient however refused and requested being discharged. She had arrangements made for early outpatient cholecystectomy with cholangiogram shortly after discharge however the patient refused this as well. Arrangements were made to see me in the office this week to plan for cholecystectomy. She presented to the office this past Tuesday on 06/06/17. She underwent repeat blood work which showed some slight increase in pancreatic enzymes and she was found to have a blood alcohol of 177. Plan was made for early outpatient cholecystectomy with cholangiogram due to the potential for biliary component of her pancreatitis. Patient presented to the emergency department yesterday afternoon complaining of upper abdominal pain. Her pancreatic enzymes actually were showing some improvement but she had a blood alcohol level of 382. Plan was made for admission for IV fluid hydration and planned cholecystectomy with cholangiogram during this admission. This would rule out and prevent future pancreatitis secondary to a surgical biliary etiology. Operative findings:: She has somewhat thickened gallbladder. Cholangiogram revealed diffusely dilated ducts without filling defect or obstruction. Operative note:: Consent was obtained and patient was taken to the operating room. She was given preoperative intravenous antibiotics. General anesthesia was induced via endotracheal tube. Abdomen was prepped and draped in the standard surgical fashion. Subumbilical skin incision was made and while performing abdominal wall lift Veress needle was inserted. CO2 pneumoperitoneum was achieved 15 mmHg. 10/11 mm optical trocar was inserted at the umbilicus. Intraperitoneal contents were visualized. She was positioned in reverse Trendelenburg with left side down. A couple of 5 mm trochars were inserted in the right upper abdomen. 10 mm trocar was inserted in the epigastrium. Gallbladder is easily identified as it was somewhat distended and enlarged. It was moderately thickened. It was grasped and retracted anteriorly and superiorly over the dome of the liver. There were omental adhesions to the gallbladder which were taken down using blunt dissection. Infundibulum/Jha's pouch of the gallbladder was retracted anterior laterally. Blunt dissection was carried out incising the visceral peritoneum. Cystic duct and cystic artery were clearly identified. Cystic duct was isolated. It was clipped proximal to the gallbladder. Through approximately a 2 mm incision in the right upper quadrant taut cholangiocatheter introducer and cholangiocatheter were inserted. Small incision was made in the duct as a ductotomy and cholangiocatheter was inserted
--- NOTE | 2017-06-09 10:22 | P.PN_ITS ---
[facility] Anesthesia Record Part I Intake, IV Amount: 400 Estimated blood loss (mL): 10 Urine output (mL): 0 Blood Products used (#): none Blood Pressure: 170/98 SaO2: 97 Pulse Rate: 70 Respiratory Rate: 18 Temperature: 997.3 F Patient is:: Drowsy, Stable Stable to PACU at:: 10:19
--- NOTE | 2017-06-09 10:22 | P.PN_ITS ---
[facility] Anesthesia Record Part II Discharge Time: 10:49 Destination: Surgical Day Care (OP Surgery) PACU nurse assessment reviewed?: Yes Patient Condition:: Good Anesthesia Complications:: None
--- NOTE | 2017-06-09 10:36 | PC.NURSE ---
pt off unit for surgery.
--- NOTE | 2017-06-09 10:46 | PC.NURSE ---
PT IS STILL OFF THE FLOOR AT THIS TIME
--- NOTE | 2017-06-09 18:02 | PC.NURSE ---
pt has been resting in bed t/o the shift, recveiving pain medication for discomfort, tolerating full liquids. dressings to the abdomen are intact with a small amount of serosanguineous fluid. pt has been up ambulating in the room and to the bathroom, vss, will continue to monitor.
[2017-06-09 20:31] LABS: Anion Gap 11.8 mEq/L (5-15); Blood Urea Nitrogen 3 mg/dL (7-18); Carbon Dioxide 29 mmol/L (21.0-32.0); Chloride 100 mmol/L (98-107); Creatinine Clearance Estimated 82 mL/min (0-300); Creatinine,Serum 0.62 mg/dL (0.55-1.02); Estimated Glomerular Filt Rate 101 ml/min (>60); GFR (African American) 122 ML/MIN (>60); Glucose 127 mg/dL (74-106); Potassium 3.8 mmoL/L (3.5-5.1); Sodium 137 mmol/L (136-145)
--- NOTE | 2017-06-10 | PC.NURSE ---
PATIENT STATES THAT SHE IS NOT COUGHING OR TAKING DEEP BREATHS AT THIS TIME D/T INCREASED PAIN. PATIENT EDUCATED ON IMPORTANCE OF COUGHING AND DEEP BREATHING EXERCISES AFTER SURGERY TO PREVENT POST-OP COMPLICATIONS/PNEUMONIA. PATIENT GIVEN A PILLOW AND ALSO EDUCATED ON HOW TO SPLINT ABDOMEN WITH THE PILLOW WHEN COUGHING AND DEEP BREATHING. PATIENT VERBALIZED UNDERSTANDING. WILL CONTINUE TO MONITOR.
[2017-06-10 04:08] VITALS: BP 142/83; PULSE 89; RESP 20; TEMP 37.1; O2SAT 96
--- NOTE | 2017-06-10 04:18 | PC.NURSE ---
PATIENT HAS NOT SLEPT MUCH THIS SHIFT. SCANT AMOUNT OF SEROUSANGUINOUS DRAINAGE NOTED TO ABD LAP SITE DRESSINGS; OTHERWISE THEY REMAIN INTACT. PATIENT HAS C/O ABD PAIN THROUGHOUT SHIFT AND RECEIVED PRN PAIN MEDICATION ORDERED. SHE HAS 1 C/O NAUSEA AND RECEIVED ZOFRAN FOR THAT. PATIENT CURRENTLY IN BED ASLEEP. NO OTHER PROBLEMS NOTED AT THIS TIME. VSS. WILL CONTINUE TO MONITOR. SAFETY MEASURES IN PLACE, CALL LIGHT IN REACH.
[2017-06-10 07:03] LABS: Blood Urea Nitrogen 2 mg/dL (7-18); Carbon Dioxide 31 mmol/L (21.0-32.0); Chloride 101 mmol/L (98-107); Creatinine Clearance Estimated 98 mL/min (0-300); Creatinine,Serum 0.52 mg/dL (0.55-1.02); Estimated Glomerular Filt Rate 124 ml/min (>60); GFR (African American) 150 ML/MIN (>60); Glucose 102 mg/dL (74-106); Sodium 138 mmol/L (136-145)
[2017-06-10 07:26] VITALS: BP 165/100; PULSE 80; RESP 18; TEMP 36.9; O2SAT 95
[2017-06-10 07:53] VITALS: O2SAT 95
--- NOTE | 2017-06-10 08:24 | HMH.ACPN2 ---
Internal Medicine - PN: Subj *Date: 06/10/17 *Time: 08:24 Interval history: Patient had her gallbladder removed yesterday. She states she has been in severe pain and has required morphine frequently. The morphine does make her nauseated. She states she ate yesterday but has been unable to eat today due to the pain. Exam Vital signs and Labs for Last 24 Hours: Temp Pulse Resp BP Pulse Ox 98.5 F 80 18 165/100 95 06/10/17 07:26 06/10/17 07:26 06/10/17 07:26 06/10/17 07:26 06/10/17 07:53 Laboratory Results - last 24 hr 06/09/17 19:50: Sodium 137, Potassium 3.8, Chloride 100, Carbon Dioxide 29, Anion Gap 11.8, BUN 3 L D, Creatinine 0.62 D, Estimated Creat Clear 82, Estimated GFR 101, Est GFR ( Amer) 122 D, Glucose 127 H 06/10/17 05:50: Sodium 138, Potassium 4.0, Chloride 101, Carbon Dioxide 31, Anion Gap 10.0, BUN 2 L D, Creatinine 0.52 L, Estimated Creat Clear 98, Estimated GFR 124, Est GFR ( Amer) 150 D, Glucose 102 I & O for Last 24 hours: Intake & Output 06/07/17 06/08/17 06/09/17 06/10/17 11:59 11:59 11:59 11:59 Intake Total 400 / 400 1462 / 1462 Output Total 500 / 500 Balance 400 / 400 962 / 962 Weight 108 lb 8 oz - Constitutional no acute distress - *Routine Respiratory Exam Present: rhonchi - *Routine Cardiovascular Exam Present: tachycardia - *Routine Abdominal Exam Present: soft, normoactive bowel sounds, tenderness (around surgical sites, dressings with some bloody drainage) - *Routine Extremities Exam Absent: edema Assessment and Plan (1) Hypokalemia Current visit: No Status: Acute Category: Medical Code(s): E87.6 - Hypokalemia (2) Acute pancreatitis Current visit: No Status: Acute Category: Medical Code(s): K85.90 - Acute pancreatitis without necrosis or infection, unspecified (3) Pancreatitis Current visit: Yes Status: Chronic Qualifiers: Chronicity: acute Pancreatitis type: unspecified pancreatitis type Acute pancreatitis complication: no infection or necrosis Qualified Code(s): K85.90 - Acute pancreatitis without necrosis or infection, unspecified Category: Medical Code(s): K85.90 - Acute pancreatitis without necrosis or infection, unspecified (4) Cholelithiasis Current visit: Yes Status: Acute Qualifiers: Cholelithiasis location: gallbladder Cholecystitis presence: without cholecystitis Biliary obstruction: without biliary obstruction Qualified Code(s): K80.20 - Calculus of gallbladder without cholecystitis without obstruction Category: Medical Code(s): K80.20 - Calculus of gallbladder without cholecystitis without obstruction (5) Alcohol intoxication Current visit: Yes Status: Acute Qualifiers: Complication of substance-induced condition: uncomplicated Qualified Code(s): F10.920 - Alcohol use, unspecified with intoxication, uncomplicated Category: Medical Code(s): F10.929 - Alcohol use, unspecified with intoxication, unspecified (6) Medically noncompliant Current visit: Yes Status: Chronic Category: Medical Code(s): Z91.19 - Patient's noncompliance with other medical treatment and regimen (7) Alcoholism Current visit: No Status: Acute Category: Medical Code(s): F10.20 - Alcohol dependence, uncomplicated (8) COPD (chronic obstructive pulmonary disease) Current visit: No Status: Chronic Category: Medical Code(s): J44.9 - Chronic obstructive pulmonary disease, unspecified (9) Tobacco use Current visit: No Status: Chronic Category: Social Hx Code(s): Z72.0 - Tobacco use - Assessment and plan all Dx Assessment and Plan for all problems:: We will discuss further care with surgery as to patient's disposition.
[2017-06-10 09:25] LABS: Basophils % 0.2 % (0.1-2.0); Eosinophils % 0.5 % (0.1-12.0); Hematocrit 35.5 % (37.0-47.0); Hemoglobin 11.3 g/dL (12.2-16.2); Lymphocytes # 1.9 K/mm3 (0.7-4.5); Lymphocytes % 30.1 K/mm3 (10-50); Mean Corpuscular HGB Conc 31.8 g/dL (31.8-35.4); Mean Corpuscular Hemoglobin 34.3 pg (27.0-31.2); Mean Corpuscular Volume 107.8 fl (81-99); Mean Platelet Volume 9.9 fl (7.4-10.4); Monocytes # 0.4 K/mm3 (0.1-1.0); Monocytes % 5.7 % (1.7-9.3); Neutrophils % 63.4 % (37.0-80.0); Platelet Count 226 K/mm3 (142-424); Red Blood Count 3.29 M/mm3 (4.20-5.40); Red Cell Distribution Width 12.1 % (11.5-17.5); White Blood Count 6.4 K/mm3 (4.8-10.8)
[2017-06-10 09:43] LABS: Lipase 1190 u/L (73-393)
[2017-06-10 09:46] LABS: Alanine Aminotransferase 22 U/L (12-78); Albumin Level 3.1 gm/dL (3.4-5.0); Albumin/Globulin Ratio 0.8 (1.1-1.8); Alkaline Phosphatase 114 U/L (46-116); Amylase 106 U/L (25-125); Anion Gap 11.1 mEq/L (5-15); Aspartate Amino Transferase 35 U/L (15-37); Bilirubin,Total 0.4 mg/dL (0.2-1.0); Blood Urea Nitrogen 3 mg/dL (7-18); Calcium 8.4 mg/dL (8.5-10.1); Carbon Dioxide 29 mmol/L (21.0-32.0); Chloride 102 mmol/L (98-107); Creatinine Clearance Estimated 96 mL/min (0-300); Creatinine,Serum 0.53 mg/dL (0.55-1.02); Estimated Glomerular Filt Rate 121 ml/min (>60); GFR (African American) 147 ML/MIN (>60); Globulin 3.9 gm/dl (1.3-3.2); Glucose 101 mg/dL (74-106); Potassium 4.1 mmoL/L (3.5-5.1); Sodium 138 mmol/L (136-145)
--- NOTE | 2017-06-10 10:43 | HMH.GSPN ---
Subjective Patient reports: feels better, pain is less Narrative: Patient states that she feels much better . She describes some soreness when coughing but her pain is improved. She asks about going home. Exam Vital signs and Labs for Last 24 Hours: Temp Pulse Resp BP Pulse Ox 98.5 F 80 18 165/100 95 06/10/17 07:26 06/10/17 07:26 06/10/17 07:26 06/10/17 07:26 06/10/17 07:53 Laboratory Results - last 24 hr 06/09/17 19:50: Sodium 137, Potassium 3.8, Chloride 100, Carbon Dioxide 29, Anion Gap 11.8, BUN 3 L D, Creatinine 0.62 D, Estimated Creat Clear 82, Estimated GFR 101, Est GFR ( Amer) 122 D, Glucose 127 H 06/10/17 05:50: Sodium 138, Potassium 4.0, Chloride 101, Carbon Dioxide 31, Anion Gap 10.0, BUN 2 L D, Creatinine 0.52 L, Estimated Creat Clear 98, Estimated GFR 124, Est GFR ( Amer) 150 D, Glucose 102 06/10/17 06:50: WBC 6.4 D, RBC 3.29 L, Hgb 11.3 L, Hct 35.5 L, MCV 107.8 H, MCH 34.3 H, MCHC 31.8, RDW 12.1, Plt Count 226 D, MPV 9.9, Neut % (Auto) 63.4, Lymph % (Auto) 30.1, [place] % (Auto) 5.7, Eos % (Auto) 0.5, Baso % (Auto) 0.2, Neut # (Auto) 4.0, Lymph # (Auto) 1.9, [place] # (Auto) 0.4, Eos # (Auto) 0.0, Baso # (Auto) 0.0 06/10/17 06:50: Sodium 138, Potassium 4.1, Chloride 102, Carbon Dioxide 29, Anion Gap 11.1, BUN 3 L D, Creatinine 0.53 L, Estimated Creat Clear 96, Estimated GFR 121, Est GFR ( Amer) 147, Glucose 101, Calcium 8.4 L, Total Bilirubin 0.4, AST 35 D, ALT 22, Alkaline Phosphatase 114, Total Protein 7.0, Albumin 3.1 L, Globulin 3.9 H, Albumin/Globulin Ratio 0.8 L, Amylase 106 06/10/17 06:50: Lipase 1190 H I & O for Last 24 hours: Intake & Output 06/07/17 06/08/17 06/09/17 06/10/17 11:59 11:59 11:59 11:59 Intake Total 400 / 400 1462 / 1462 Output Total 500 / 500 Balance 400 / 400 962 / 962 Weight 108 lb 8 oz - *Routine Abdominal Exam Present: soft Comments: Dressings intact. Minimal bruising at the umbilicus. Progress Note: A&P (1) Hypokalemia Status: Acute Current Visit: No (2) Acute pancreatitis Status: Acute Current Visit: No (3) Pancreatitis Status: Chronic Current Visit: Yes (4) Cholelithiasis Status: Acute Assessment and plan: Patient appears to have done well after surgery. Blood work including CBC, comprehensive metabolic panel, amylase, and lipase are within reasonable limits. She shown normalization of amylase and improvement in lipase. Liver function tests are normal. Should be able to discharge home today. Current Visit: Yes (5) Alcohol intoxication Status: Acute Current Visit: Yes (6) Medically noncompliant Status: Chronic Current Visit: Yes (7) Alcoholism Status: Acute Current Visit: No (8) COPD (chronic obstructive pulmonary disease) Status: Chronic Current Visit: No (9) Tobacco use Status: Chronic Current Visit: No
--- NOTE | 2017-06-10 10:59 | HMH.DCSUM ---
General - General Admission date: 06/08/17 Discharge date: 06/10/17 HPI HPI: Ms Bustamante is a 51 year old female with a history of COPD, GERD, and CHF who presented to [facility] ER stating that she had a cough and thought that she might have pneumonia. She also stated that she is supposed to be admitted tomorrow for gallbladder surgery and just wants to stay in the hospital until then. She wanted to be admitted. She described a cough for months with clear bubbly sputum. She felt feverish at home, but without documented fevers. She also stated that she was recently admitted to the hospital with pneumonia and GB issues and had to return to be readmitted. Review of records reveal a previous admission this year from 05/29/2017 until 05/31/2017 with pancreatitis. It was felt to be alcoholic pancreatitis, but she also was noted to have gallstones. She was supposed to have a cholecystectomy while in the hospital, but refused sherri was scheduled for an OP surgery. She also has been having problems with epigastric for months which is now constant. She is a heavy drinker. States she does not currently have a primary care provider. With this exam pt denies cough and fever. She has had diarrhea, nausea and abdominal pain. Elevated ETOH level, amylase and lipase noted. Hospital Course Hospital Course: She was admitted. She was hydrated overnight. Following morning she was taken to the operating room at which time she underwent laparoscopic cholecystectomy with intraoperative cholangiogram. Cholangiogram revealed diffusely dilated ducts without obstruction or filling defect. Surgery went uneventfully. She was admitted postoperatively for inpatient recovery and convalescence. She was given a bland diet. Patient did take morphine for the pain initially and this resulted in some nausea. However, later in the day on postoperative day #1 she dated that she was feeling much better . She desired going home. She underwent laboratory evaluation including CBC, comprehensive medical panel, pancreatic enzymes. Liver function tests were within normal limits. Pancreatic enzymes had shown significant ongoing improvement with normalization of the amylase and improvement of the lipase. Arrangements were made for discharge home on postoperative day #1. Objective Vital signs: Temp Pulse Resp BP Pulse Ox 98.5 F 80 18 165/100 95 06/10/17 07:26 06/10/17 07:26 06/10/17 07:26 06/10/17 07:26 06/10/17 07:53 - *Routine Abdominal Exam Present: soft Results Labs on day of discharge: Labs from last 24 hours 06/10/17 06/10/17 06/10/17 06:50 06:50 06:50 WBC 6.4 D RBC 3.29 L Hgb 11.3 L Hct 35.5 L MCV 107.8 H MCH 34.3 H MCHC 31.8 RDW 12.1 Plt Count 226 D MPV 9.9 Neut % (Auto) 63.4 Lymph % (Auto) 30.1 [place] % (Auto) 5.7 Eos % (Auto) 0.5 Baso % (Auto) 0.2 Neut # (Auto) 4.0 Lymph # (Auto) 1.9 [place] # (Auto) 0.4 Eos # (Auto) 0.0 Baso # (Auto) 0.0 Sodium 138 Potassium 4.1 Chloride 102 Carbon Dioxide 29 Anion Gap 11.1 BUN 3 L D Creatinine 0.53 L Estimated Creat Clear 96 Estimated GFR 121 Est GFR ( Amer) 147 Glucose 101 Calcium 8.4 L Total Bilirubin 0.4 AST 35 D ALT 22 Alkaline Phosphatase 114 Total Protein 7.0 Albumin 3.1 L Globulin 3.9 H Albumin/Globulin Ratio 0.8 L Amylase 106 Lipase 1190 H 06/10/17 06/09/17 05:50 19:50 WBC RBC Hgb Hct MCV MCH MCHC RDW Plt Count MPV Neut % (Auto) Lymph % (Auto) [place] % (Auto) Eos % (Auto) Baso % (Auto) Neut # (Auto) Lymph # (Auto) [place] # (Auto) Eos # (Auto) Baso # (Auto) Sodium 138 137 Potassium 4.0 3.8 Chloride 101 100 Carbon Dioxide 31 29 Anion Gap 10.0 11.8 BUN 2 L D 3 L D Creatinine 0.52 L 0.62 D Estimated Creat Clear 98 82 Estimated GFR 124 101 Est G
--- NOTE | 2017-06-10 11:02 | P.DS_ITS ---
General - General Admission date: 06/08/17 Discharge date: 06/10/17 HPI HPI: Ms Bustamante is a 51 year old female with a history of COPD, GERD, and CHF who presented to [facility] ER stating that she had a cough and thought that she might have pneumonia. She also stated that she is supposed to be admitted tomorrow for gallbladder surgery and just wants to stay in the hospital until then. She wanted to be admitted. She described a cough for months with clear bubbly sputum. She felt feverish at home, but without documented fevers. She also stated that she was recently admitted to the hospital with pneumonia and GB issues and had to return to be readmitted. Review of records reveal a previous admission this year from 05/29/2017 until 2017 with pancreatitis. It was felt to be alcoholic pancreatitis, but she also was noted to have gallstones. She was supposed to have a cholecystectomy while in the hospital, but refused sherri was scheduled for an OP surgery. She also has been having problems with epigastric for months which is now constant. She is a heavy drinker. States she does not currently have a primary care provider. With this exam pt denies cough and fever. She has had diarrhea, nausea and abdominal pain. Elevated ETOH level, amylase and lipase noted. Hospital Course Hospital Course: She was admitted. She was hydrated overnight. Following morning she was taken to the operating room at which time she underwent laparoscopic cholecystectomy with intraoperative cholangiogram. Cholangiogram revealed diffusely dilated ducts without obstruction or filling defect. Surgery went uneventfully. She was admitted postoperatively for inpatient recovery and convalescence. She was given a bland diet. Patient did take morphine for the pain initially and this resulted in some nausea. However, later in the day on postoperative day #1 she dated that she was feeling much better . She desired going home. She underwent laboratory evaluation including CBC, comprehensive medical panel, pancreatic enzymes. Liver function tests were within normal limits. Pancreatic enzymes had shown significant ongoing improvement with normalization of the amylase and improvement of the lipase. Arrangements were made for discharge home on postoperative day #1. Objective Vital signs: Temp Pulse Resp BP Pulse Ox 98.5 F 80 18 165/100 95 06/10/17 07:26 06/10/17 07:26 06/10/17 07:26 06/10/17 07:26 06/10/17 07:53 - *Routine Abdominal Exam Present: soft Results Labs on day of discharge: Labs from last 24 hours 06/10/17 06/10/17 06/10/17 06:50 06:50 06:50 WBC 6.4 D RBC 3.29 L Hgb 11.3 L Hct 35.5 L MCV 107.8 H MCH 34.3 H MCHC 31.8 RDW 12.1 Plt Count 226 D MPV 9.9 Neut % (Auto) 63.4 Lymph % (Auto) 30.1 [place] % (Auto) 5.7 Eos % (Auto) 0.5 Baso % (Auto) 0.2 Neut # (Auto) 4.0 Lymph # (Auto) 1.9 [place] # (Auto) 0.4 Eos # (Auto) 0.0 Baso # (Auto) 0.0 Sodium 138 Potassium 4.1 Chloride 102 Carbon Dioxide 29 Anion Gap 11.1 BUN 3 L D Creatinine 0.53 L Estimated Creat Clear 96 Estimated GFR 121 Est GFR ( Amer) 147 Glucose 101 Calcium 8.4 L Total Bilirubin
== END 2017-06-10 11:35 | disposition home or self-care (01) | DRG 418 ==
LOC: ER 13:02 → 2ND 16:53
PROVIDERS: Surgery; Admitting Provider Family Medicine; Emergency Provider Emergency Medicine; PCP Family Medicine; Visit Provider Family Medicine
DX: E87.1 Hypo-osmolality and hyponatremia; I50.9 Heart failure, unspecified; K80.70 Calculus of gallbladder and bile duct without cholecystitis without obstruction; K86.0 Alcohol-induced chronic pancreatitis; J44.9 Chronic obstructive pulmonary disease, unspecified; Z72.0 Tobacco use; F10.20 Alcohol dependence, uncomplicated
CPT/HCPCS: 47563; 36415; 71046; 74300; 76000; 80048; 80053; 80305; 82150; 83690; 83735; 84100; 85025; 85610; 85730; 96374; 99284; J2405

== ENCOUNTER 2017-10-25 13:00 | Inpatient (IN) ==
[2017-10-25 13:11] LABS: Microscopic, Urine URINE MICROSCOPIC (MICROSCOPIC)
[2017-10-25 13:12] LABS: Appearance,Urine CLEAR (Clear); Blood, Urine Negative (Negative); Color,Urine YELLOW (Yellow); Glucose,Urine (UA) Negative (Negative); Ketones,Urine 2+ (Negative); Leukocyte Esterase,Urine Negative (Negative); Protein,Urine TRACE (Negative); Specific Gravity, Urine >= 1.030 (1.005-1.030); Urobilinogen,Urine 0.2 EU/dl (0.2)
--- NOTE | 2017-10-25 13:16 | Emergency Department Note ---
ED Disposition Clinical Impression: Alcoholism, Acute pancreatitis, Hypokalemia, Non-compliance Disposition: Still a Patient Condition on Discharge: Fair Instructions: DI for Acute Abdomen - Critical Care Critical Care Time: No Attestation: On , the high probability of a clinically significant, sudden or life threatening deterioration of the following system(s) required my full and direct attention, intervention and personal management. The time I documented below is in addition to time spent performing reported procedures but includes the following listed in this critical care notation. Medical Decision Making - Jose Inquiry Pt receiving controlled substance: No Jose was queried for this patient: No Vital Signs: 10/25/17 13:00 10/25/17 14:58 Temperature 97.9 F Temperature Source Oral Pulse Rate [Right Radial] 76 92 H Respiratory Rate 20 16 Blood Pressure [Right Arm] 160/97 158/89 Blood Pressure Mean [Right Arm] 118 112 Blood Pressure Source [Right Arm] Automatic Cuff Blood Pressure Position [Right Arm] Sitting 02 Sat by Pulse Oximetry 100 100 - Lab Data Lab Results 10/25/17 13:03: Urine Color Yellow, Urine Appearance Clear, Urine pH 6.0, Ur Specific [place] >= 1.030, Urine Protein Trace, Urine Glucose (UA) Negative, Urine Ketones 2+, Urine Blood Negative, Urine Nitrate Negative, Urine Bilirubin Negative, Urine Urobilinogen 0.2, Ur Leukocyte Esterase Negative, Urine RBC None , Urine WBC 3-5, Ur Squamous Epith Cells 5-10, Urine Bacteria Trace 10/25/17 13:03: Urine Opiates Screen Negative, Urine Methadone Screen Negative, Ur Barbituates Screen Negative, Ur Phencyclidine Scrn Negative, Ur Amphetamines Screen Negative, U Benzodiazepines Scrn Negative, Urine Cocaine Screen Negative , U Marijuana (THC) Screen Positive H 10/25/17 13:45: WBC 7.0, RBC 4.05 L, Hgb 13.9, Hct 41.8, MCV 103.2 H, MCH 34.2 H , MCHC 33.2, RDW 12.7, Plt Count 210, MPV 8.0, Neut % (Auto) 89.4 H, Lymph % ( Auto) 6.6 L, [place] % (Auto) 3.4, Eos % (Auto) 0.1, Baso % (Auto) 0.4, Neut # ( Auto) 6.2, Lymph # (Auto) 0.5 L, [place] # (Auto) 0.2, Eos # (Auto) 0.0, Baso # ( Auto) 0.0, Total Counted 100, Neutrophils % (Manual) 89 H, Band Neutrophils % 2.0, Lymphocytes % (Manual) 5 L, Monocytes % (Manual) 4, Platelet Estimate Normal, Macrocytosis 1+ 10/25/17 13:45: Sodium 135 L, Potassium 2.7 L*, Chloride 96 L, Carbon Dioxide 20 L, Anion Gap 21.7 H, BUN 2 L, Creatinine 0.47 L, Estimated Creat Clear 115, Estimated GFR 139, Est GFR ( Amer) 168, Glucose 101, Calcium 8.9, Total Bilirubin 0.9, AST 254 H, ALT 109 H, Alkaline Phosphatase 189 H, Total Protein 8.5 H, Albumin 4.2, Globulin 4.3 H, Albumin/Globulin Ratio 1.0 L, Amylase 292 H , Lipase 4276 H, Plasma/Serum Alcohol 4 10/25/17 13:45: Troponin I < 0.02 10/25/17 13:45: Triglycerides 36 Result diagrams: 10/25/17 13:45 10/25/17 13:45 Orders (Tests/Meds): ED MEDICATIONS Discontinued Medications Generic Name Dose Route Start Last Admin Trade Name Abadq PRN Reason Stop Dose Admin Famotidine 20 mg 10/25/17 13:09 10/25/17 13:17 Pepcid 20mg/2ml Vial IV 10/25/17 13:10 20 mg ONCE ONE Administration Sodium Chloride 1,000 mls @ 999 mls/hr 10/25/17 13:15 10/25/17 13:17 Sod Chlor 0.9% 1000ml Bag IV 10/25/17 14:15 999 mls/hr .Q1H1M NEHAL Administration Iopamidol 75 ml 10/25/17 14:16 10/25/17 14:17 [id number]; 75ml Vial IV 10/25/17 14:17 75 ml ONCE ONE Administration Ketorolac Tromethamine 30 mg 10/25/17 15:02 10/25/17 15:08 Toradol 30mg/Ml Vial IV 10/25/17 15:03 30 mg ONCE ONE Administration Metoclopramide HCl 10 mg 10/25/17 13:09 10/25/17 13:17 Reglan 10mg/2ml Vial IVP 10/25/17 13:10 10 mg ONCE ONE Administration Ondansetron HCl 4 mg 10/25/17 13:08 10/25/17 13:17 Zofran 4mg/2ml Vial IV 10/25/17 13:09 4 mg ONCE ONE Administration Sodium Chloride 10 ml 10/25/17 14:16 10/25/17 14:17 Rad-Saline Flush 10ml Syringe IV 10/25/17 14:17 10 ml ONCE ONE Administration ORDERS Category Date Time Status XR chest 2V Stat Exams 10/25/17 13:07 Taken ECG Request by /Nse Stat Y 10/25/17 13:02 Ordered Medical Decision Narrative: After reviewing the results of the CT scan as below IMPRESSION: 1. Suspect mild acute pancreatitis. 2. Small amount fluid medial to the descending portion of the duodenum and could be due to small peripancreatic effusion. Called the service Dr. Dr. Sánchez who agreed to admit the patient IV fluid therapy and pain mgmt. he advised not to antibiotics at the present. Abdominal Pain HPI - General Chief Complaint: Abdominal Pain Stated Complaint: abd pain Time Seen by Provider: 10/25/17 13:00 Mode of Arrival: EMS Limitations: No Limitations Description of Symptoms (Recalled from ER Triage Doc. by RN): epigastric abdominal pain and nausea. - History of Present Illness HPI narrative: 51 years old white female with history of alcoholism and pancreatitis. Yesterday she drank 1-1/2 beer and was awakened at 7:00 this morning with upper abdominal pain that is severe sharp in character radiating to the back with nausea dry heaving and diarrhea. Status post cholecystectomy and hysterectomy. Denies having hematemesis coffee-ground emesis melanotic stool bleeding per rectum hematuria dysuria frequency or hemoptysis. Denies having chest pain shortness of breath or palpitation. MD complaint: abdominal pain Onset (ago): hour(s) (6 hours.) Consistency: constant Location: epigastric Severity scale (1-10): 10 Quality: sharp Radiation: back Migration to: no migration Relieving factors: nothing Exacerbating factors: nothing Associated symptoms: nausea, diarrhea - Related Data Home Medications Medication Instructions Recorded Confirmed Omeprazole [Omeprazole 40mg 40 mg PO DAILY 05/29/17 06/08/17 Capsule] Albuterol Sulfate [Albuterol HFA 2 puffs IH Q6HP PRN 05/30/17 06/08/17 Inhaler] Previous Rx's Medication Instructions Recorded Ondansetron HCl [Zofran 4mg Tab] 4 mg PO Q6HP PRN #20 tab 05/31/17 Hydrocod/Acet 5/325 mg [[place] 1 - 2 tab PO Q6HP PRN #19 tab 06/10/17 5/325mg tablet] Allergies Allergy/AdvReac Type Severity Reaction Status Date / Time codeine [CODEINE] Allergy Mild Verified 10/25/17 13:05 [facility] History I have reviewed the patient's past medical history: Yes Medical History: Reports:: Congestive Heart Failure, Chronic Obstructive Pulmonary Disease (COPD), Gastroesophageal Reflux Disease(GERD), Urinary Tract Infection Denies:: Atherosclerotic Heart Disease, Cancer, Diabetes Mellitus Type 1, Diabetes Mellitus Type 2, Gastrointestinal Bleed, Hepatitis, Home Oxygen, Hyperlipidemia, Hypertension, Internal Pacemaker, MRSA, Myocardial Infarction, Seizures, Transient Ischemic Attacks (TIA) Other Medical History: Denies: Anemia, Arthritis, Hypothyroidism, Liver Disease , Thyroid Disease, Unexplained Bleeding Laterality Cases: Bilateral: Other Other Surgeries: Yes: Hysterectomy-Total. No: Pacemaker Amputation: No Fractures: No - Social History Smoking Status: Current every day smoker Tobacco Type: cigarettes # Packs/Day (cigarettes): 1 Alcohol Intake: current Alcohol Intake Frequency:: a few times a month Substance Use Type: marijuana Occupational Status: unemployed Housing: house Household Members: friend(s) Comment: drank 4 beers today - Psychiatric History Expresses thoughts of harming self/others: None Suicide Plan Description: No Plan Family Hx:: Cancer ROS Obtained: Yes All systems reviewed & no additional complaints Physical Exam - General General appearance: alert, in no apparent distress - Head Head exam: atraumatic, normocephalic, normal inspection - Eye Eye exam: Present: normal appearance, PERRL, EOMI. Absent: scleral icterus, nystagmus - ENT ENT exam: Present: normal exam, normal oropharynx, mucous membranes moist, TM's normal bilaterally, normal external ear exam - Neck Neck exam: Present: normal inspection, full ROM, trachea midline. Absent: tenderness, meningismus, lymphadenopathy - Chest Chest inspection: Present: normal inspection, symmetric chest wall rise. Absent : tenderness - Respiratory Respiratory exam: Present: normal lung sounds bilaterally. Absent: respiratory distress - Cardiovascular Cardiovascular exam: Present: regular rate, normal rhythm. Absent: JVD - Abdominal Exam Abdominal exam: Present: soft, normal bowel sounds. Absent: distention, tenderness, guarding - Extremities Exam Extremities exam: Present: normal inspection, full ROM, normal capillary refill. Absent: tenderness, calf tenderness - Back Exam Back exam: Present: normal inspection. Absent: tenderness - Neurological Exam Neurological exam: Present: alert, oriented X3, CN II-XII intact, motor sensory deficit, reflexes normal - Psychiatric Psychiatric exam: Present: normal affect, normal mood - Skin Skin exam: Present: warm, dry, intact, normal color - Lymphatic Lymphatic Findings: no adenopathy
[2017-10-25 13:18] LABS: Bilirubin,Urine Negative (Negative)
[2017-10-25 13:21] LABS: Amphetamine/Metha Screen,Urine Negative ng/mL (<1000); Barbiturates Screen,Urine Negative ng/mL (<200); Benzodiazepines Screen,Urine Negative ng/mL (<200); Cannabinoid Screen,Urine Positive ng/mL (<50); Cocaine Screen,Urine Negative ng/mL (<300); Methadone Screen,Urine Negative ng/mL (<300); Opiate Screen,Urine Negative ng/mL (<300); Phencyclidine Screen,Urine Negative ng/mL (<25)
[2017-10-25 13:31] LABS: Bacteria,Urine Trace /lpf
[2017-10-25 14:03] LABS: Basophils % 0.4 % (0.1-2.0); Eosinophils % 0.1 % (0.1-12.0); Hematocrit 41.8 % (37.0-47.0); Hemoglobin 13.9 g/dL (12.2-16.2); Lymphocytes # 0.5 K/mm3 (0.7-4.5); Lymphocytes % 6.6 K/mm3 (10-50); Mean Corpuscular HGB Conc 33.2 g/dL (31.8-35.4); Mean Corpuscular Hemoglobin 34.2 pg (27.0-31.2); Mean Corpuscular Volume 103.2 fl (81-99); Monocytes # 0.2 K/mm3 (0.1-1.0); Monocytes % 3.4 % (1.7-9.3); Neutrophils # 6.2 K/mm3 (1.8-7.8); Neutrophils % 89.4 % (37.0-80.0); Platelet Count 210 K/mm3 (142-424); Red Blood Count 4.05 M/mm3 (4.20-5.40); Red Cell Distribution Width 12.7 % (11.5-17.5)
[2017-10-25 14:33] LABS: Lymphocytes % 5 % (10-50); Monocytes % 4 % (2-9); Neutrophils % 89 % (42-76); Total Cells Counted 100
[2017-10-25 14:35] LABS: Macrocytosis 1+
[2017-10-25 14:57] LABS: Albumin Level 4.2 gm/dL (3.4-5.0); Anion Gap 21.7 mEq/L (5-15); Bilirubin,Total 0.9 mg/dL (0.2-1.0); Calcium 8.9 mg/dL (8.5-10.1); Globulin 4.3 gm/dl (1.3-3.2); Total Protein,Serum 8.5 gm/dL (6.4-8.2)
[2017-10-25 15:07] LABS: Potassium 2.7 mmoL/L (3.5-5.1)
--- NOTE | 2017-10-25 15:25 | History & Physical Report ---
*Admission Date: 10/25/17 <Trang Rios 10/25/17 15:25> *Chief complaint: Abdominal pain <Trang Rios 10/25/17 16:17> *History of present illness: Ms Bustamante is a 51 years old white female with history of alcoholism, pancreatitis, COPD, GERD, and CHF Yesterday she drank 1-1/2 beer and was awakened at 7:00 this morning with upper abdominal pain that was severe and sharp in character radiating to the back with nausea, dry heaving and diarrhea. She is status post cholecystectomy and hysterectomy. She denies having hematemesis, coffee-ground emesis, melanotic stool, ,bleeding per rectum, hematuria, dysuria, frequency or hemoptysis. She also denies chest pain, shortness of breath or heart palpitations. She has had the diarrhea for several weeks. With this exam pt is uncomfortable and wants her pain medicine. She states that she did fall this AM when she fainted briefly. She does not have any injuries from the fall. <Trang Rios 10/25/17 16:17> [facility] History Medical History: Reports:: Congestive Heart Failure, Chronic Obstructive Pulmonary Disease (COPD), Gastroesophageal Reflux Disease(GERD), Urinary Tract Infection Denies:: Atherosclerotic Heart Disease, Cancer, Diabetes Mellitus Type 1, Diabetes Mellitus Type 2, Gastrointestinal Bleed, Hepatitis, Home Oxygen, Hyperlipidemia, Hypertension, Internal Pacemaker, MRSA, Myocardial Infarction, Palpitations, Seizures, Transient Ischemic Attacks (TIA) <Trang Rios 16:17> Other Medical History: Denies: Anemia, Arthritis, Hypothyroidism, Liver Disease , Thyroid Disease, Unexplained Bleeding <RiosTrang 10/25/17 15:25> Laterality Cases: Bilateral: Other <RiosTrang 10/25/17 15:37> Other Surgeries: Yes: Cholecystectomy, Hysterectomy-Total, Hysterectomy-Partial , Organ Transplant. No: Pacemaker <RiosTrang 10/25/17 15:37> Amputation: No <RiosTrang 10/25/17 15:25> Fractures: No <RiosTrang 10/25/17 15:25> - *Social History Smoking Status: Current every day smoker <RiosTrang 10/25/17 15:25> Tobacco Type: cigarettes <Trang Rios 10/25/17 15:25> # Packs/Day (cigarettes): 1 <Trang Rios 10/25/17 15:25> Alcohol Intake: current <Trang Rios 10/25/17 15:25> Alcohol Intake Frequency:: a few times a month <Trang Rios 10/25/17 15:25 > Substance Use Type: marijuana <Trang Rios 10/25/17 15:25> Occupational Status: unemployed <Trang Rios 10/25/17 15:25> Housing: house <Trang Rios 10/25/17 15:25> Household Members: friend(s) <Trang Rios 10/25/17 15:25> - Psychiatric History Expresses thoughts of harming self/others: None <Trang Rios 10/25/17 15: 25> Suicide Plan Description: No Plan <Trang Rios 10/25/17 15:25> *Family Hx:: Cancer <Denisse Rioshy 10/25/17 15:25> Review of Systems - Constitutional Reports body ache(s), Reports chills, Denies fever(s) <Denisse Rioshy 16:17> - ENT Denies ear pain, Denies sore throat <GabrielTrang 10/25/17 16:17> - *Cardiovascular Reports excessive sweating, Denies chest pain, Denies shortness of breath, Denies rapid, pounding, or irregular heartbeat <RiosTrang 10/25/17 16:17 > - *Respiratory Denies chest congestion, Denies cough, Denies shortness of breath, Denies coughing up blood <GabrielTrang 10/25/17 16:17> - *Gastrointestinal Reports abdominal pain, Reports change in bowel habits, Reports change in stools , Reports heartburn, Reports nausea, Reports vomiting, Denies constipation, Denies vomiting blood, Denies bright, red blood in stools, Denies black, tarry stools <RiosTrang 10/25/17 16:17> - *Genitourinary Denies difficulty urinating <RiosTrang 10/25/17 16:17> - *Musculoskeletal Reports body aches <Trang Rios - 10/25/17 16:17> Comments: has had some falls <Trang Rios - 10/25/17 16:17> - *Neurologic Denies seizure-like activity <Trang Rios - 10/25/17 16:17> Comments: she did faint briefly this AM <Trang Rios - 10/25/17 16:17> Meds Home Medications Medication Instructions Recorded Confirmed Type Omeprazole [Omeprazole 40mg 40 mg PO DAILY 05/29/17 06/08/17 History Capsule] Albuterol Sulfate [Albuterol HFA 2 puffs IH Q6HP PRN 05/30/17 06/08/17 History Inhaler] <Jerome Sánchez - 10/25/17 19:39> Allergies Allergy/AdvReac Type Severity Reaction Status Date / Time codeine [CODEINE] Allergy Mild Verified 10/25/17 13:05 <GonzaloJerome Ramakrishna - 10/25/17 19:39> Exam Vital signs and Labs for Last 24 Hours: Temp Pulse Resp BP Pulse Ox 97.6 F 78 20 171/93 100 10/25/17 16:25 10/25/17 16:25 10/25/17 16:25 10/25/17 16:25 10/25/17 16:25 Laboratory Results - last 24 hr 10/25/17 13:03: Urine Color Yellow, Urine Appearance Clear, Urine pH 6.0, Ur Specific [place] >= 1.030, Urine Protein Trace, Urine Glucose (UA) Negative, Urine Ketones 2+, Urine Blood Negative, Urine Nitrate Negative, Urine Bilirubin Negative, Urine Urobilinogen 0.2, Ur Leukocyte Esterase Negative, Urine RBC None , Urine WBC 3-5, Ur Squamous Epith Cells 5-10, Urine Bacteria Trace 10/25/17 13:03: Urine Opiates Screen Negative, Urine Methadone Screen Negative, Ur Barbituates Screen Negative, Ur Phencyclidine Scrn Negative, Ur Amphetamines Screen Negative, U Benzodiazepines Scrn Negative, Urine Cocaine Screen Negative , U Marijuana (THC) Screen Positive H 10/25/17 13:45: WBC 7.0, RBC 4.05 L, Hgb 13.9, Hct 41.8, MCV 103.2 H, MCH 34.2 H , MCHC 33.2, RDW 12.7, Plt Count 210, MPV 8.0, Neut % (Auto) 89.4 H, Lymph % ( Auto) 6.6 L, [place] % (Auto) 3.4, Eos % (Auto) 0.1, Baso % (Auto) 0.4, Neut # ( Auto) 6.2, Lymph # (Auto) 0.5 L, [place] # (Auto) 0.2, Eos # (Auto) 0.0, Baso # ( Auto) 0.0, Total Counted 100, Neutrophils % (Manual) 89 H, Band Neutrophils % 2.0, Lymphocytes % (Manual) 5 L, Monocytes % (Manual) 4, Platelet Estimate Normal, Macrocytosis 1+ 10/25/17 13:45: Sodium 135 L, Potassium 2.7 L*, Chloride 96 L, Carbon Dioxide 20 L, Anion Gap 21.7 H, BUN 2 L, Creatinine 0.47 L, Estimated Creat Clear 115, Estimated GFR 139, Est GFR ( Amer) 168, Glucose 101, Calcium 8.9, Total Bilirubin 0.9, AST 254 H, ALT 109 H, Alkaline Phosphatase 189 H, Total Protein 8.5 H, Albumin 4.2, Globulin 4.3 H, Albumin/Globulin Ratio 1.0 L, Amylase 292 H , Lipase 4276 H, Plasma/Serum Alcohol 4 10/25/17 13:45: Troponin I < 0.02 10/25/17 13:45: Triglycerides 36 <Jerome Sánchez - 10/25/17 19:39> Temp Pulse Resp BP Pulse Ox 97.9 F 92 H 16 158/89 100 10/25/17 13:00 10/25/17 14:58 10/25/17 14:58 10/25/17 14:58 10/25/17 14:58 Laboratory Results - last 24 hr 10/25/17 13:03: Urine Color Yellow, Urine Appearance Clear, Urine pH 6.0, Ur Specific [place] >= 1.030, Urine Protein Trace, Urine Glucose (UA) Negative, Urine Ketones 2+, Urine Blood Negative, Urine Nitrate Negative, Urine Bilirubin Negative, Urine Urobilinogen 0.2, Ur Leukocyte Esterase Negative, Urine RBC None , Urine WBC 3-5, Ur Squamous Epith Cells 5-10, Urine Bacteria Trace 10/25/17 13:03: Urine Opiates Screen Negative, Urine Methadone Screen Negative, Ur Barbituates Screen Negative, Ur Phencyclidine Scrn Negative, Ur Amphetamines Screen Negative, U Benzodiazepines Scrn Negative, Urine Cocaine Screen Negative , U Marijuana (THC) Screen Positive H 10/25/17 13:45: WBC 7.0, RBC 4.05 L, Hgb 13.9, Hct 41.8, MCV 103.2 H, MCH 34.2 H , MCHC 33.2, RDW 12.7, Plt Count 210, MPV 8.0, Neut % (Auto) 89.4 H, Lymph % ( Auto) 6.6 L, [place] % (Auto) 3.4, Eos % (Auto) 0.1, Baso % (Auto) 0.4, Neut # ( Auto) 6.2, Lymph # (Auto) 0.5 L, [place] # (Auto) 0.2, Eos # (Auto) 0.0, Baso # ( Auto) 0.0, Total Counted 100, Neutrophils % (Manual) 89 H, Band Neutrophils % 2.0, Lymphocytes % (Manual) 5 L, Monocytes % (Manual) 4, Platelet Estimate Normal, Macrocytosis 1+ 10/25/17 13:45: Sodium 135 L, Potassium 2.7 L*, Chloride 96 L, Carbon Dioxide 20 L, Anion Gap 21.7 H, BUN 2 L, Creatinine 0.47 L, Estimated Creat Clear 115, Estimated GFR 139, Est GFR ( Amer) 168, Glucose 101, Calcium 8.9, Total Bilirubin 0.9, AST 254 H, ALT 109 H, Alkaline Phosphatase 189 H, Total Protein 8.5 H, Albumin 4.2, Globulin 4.3 H, Albumin/Globulin Ratio 1.0 L, Amylase 292 H , Lipase 4276 H, Plasma/Serum Alcohol 4 10/25/17 13:45: Troponin I < 0.02 10/25/17 13:45: Triglycerides 36 <Trang Rios - 10/25/17 15:25> I & O for Last 24 hours: Intake & Output 10/23/17 10/24/17 10/25/17 10/26/17 11:59 11:59 11:59 11:59 Intake Total 1000 / 1000 Balance 1000 / 1000 Weight 103 lb 7 oz <Jerome Sánchez - 10/25/17 19:39> Intake & Output 10/23/17 10/24/17 10/25/17 10/26/17 11:59 11:59 11:59 11:59 Weight 115 lb <Trang Rios 10/25/17 15:25> Radiology Reports for the Last 24 Hours: 10/25/17 CXR; CT of abdomen/pelvis 10/25/17 <Trang Rios 10/25/17 15:37> - Constitutional no acute distress <Trang Rios 10/25/17 16:17> Comments: appears uncomfortable <Trang Rios 10/25/17 16:17> - *Routine HEENT Exam Head: Present: normocephalic, atraumatic <Trang Rios 10/25/17 16:17> Eye: Present: PERRL. Absent: conjunctival icterus, scleral injection <Trang Rios 10/25/17 16:17> Comments: coated tongue <[facility] 10/25/17 16:17> - *Routine Neck Exam Present: supple, full ROM. Absent: lymphadenopathy, thyromegaly <Trang Rios 10/25/17 16:17> - *Routine Respiratory Exam Present: CTA bilaterally (A&P) <Trang Rios 10/25/17 16:17> - *Routine Cardiovascular Exam Present: RRR <Trang Rios 10/25/17 16:17> - *Routine Abdominal Exam Present: soft, normoactive bowel sounds, tenderness (epigastrium and RUQ) < Trang Rios 10/25/17 16:17> - *Routine Extremities Exam Absent: edema, calf tenderness <Trang Rios 10/25/17 16:17> - *Routine Neurological Exam Present: alert, oriented X3, normal speech <Trang Rios 10/25/17 16:17> H&P: Result - Labs Labs: Short CBC 10/25/17 Range/Units 13:45 WBC 7.0 (4.8-10.8) K/mm3 Hgb 13.9 (12.2-16.2) g/dL Hct 41.8 (37.0-47.0) % Plt Count 210 (142-424) K/mm3 [facility] 10/25/17 13:45 Sodium 135 L Potassium 2.7 L* Chloride 96 L Carbon Dioxide 20 L BUN 2 L Creatinine 0.47 L Glucose 101 Calcium 8.9 Cardiac Enzymes 10/25/17 Range/Units 13:45 Troponin I < 0.02 (0.00-0.06) ng/ml Liver Function 10/25/17 Range/Units 13:45 Total Bilirubin 0.9 (0.2-1.0) mg/dL AST 254 H (15-37) U/L ALT 109 H (12-78) U/L Alkaline Phosphatase 189 H (46-116) U/L Albumin 4.2 (3.4-5.0) gm/dL Urine 10/25/17 Range/Units 13:03 Urine Color Yellow (Yellow) Urine Appearance Clear (Clear) Urine pH 6.0 (5.0-8.5) Ur Specific [place] >= 1.030 (1.005-1.030) Urine Protein Trace (Negative) Urine Glucose (UA) Negative (Negative) <GonzaloJerome Ramakrishna - 10/25/17 19:39> Short CBC 10/25/17 Range/Units 13:45 WBC 7.0 (4.8-10.8) K/mm3 Hgb 13.9 (12.2-16.2) g/dL Hct 41.8 (37.0-47.0) % Plt Count 210 (142-424) K/mm3 [facility] 10/25/17 13:45 Sodium 135 L Potassium 2.7 L* Chloride 96 L Carbon Dioxide 20 L BUN 2 L Creatinine 0.47 L Glucose 101 Calcium 8.9 Cardiac Enzymes 10/25/17 Range/Units 13:45 Troponin I < 0.02 (0.00-0.06) ng/ml Liver Function 10/25/17 Range/Units 13:45 Total Bilirubin 0.9 (0.2-1.0) mg/dL AST 254 H (15-37) U/L ALT 109 H (12-78) U/L Alkaline Phosphatase 189 H (46-116) U/L Albumin 4.2 (3.4-5.0) gm/dL Urine 10/25/17 Range/Units 13:03 Urine Color Yellow (Yellow) Urine Appearance Clear (Clear) Urine pH 6.0 (5.0-8.5) Ur Specific [place] >= 1.030 (1.005-1.030) Urine Protein Trace (Negative) Urine Glucose (UA) Negative (Negative) <Trang Rios - 10/25/17 15:25> Assessment and Plan (1) Acute pancreatitis Current visit: Yes Status: Acute Category: Medical Code(s): K85.90 - Acute pancreatitis without necrosis or infection, unspecified (2) Alcoholism Current visit: Yes Status: Chronic Category: Medical Code(s): F10.20 - Alcohol dependence, uncomplicated (3) Hypokalemia Current visit: Yes Status: Acute Category: Medical Code(s): E87.6 - Hypokalemia (4) Diarrhea Current visit: Yes Status: Acute Category: Medical Code(s): R19.7 - Diarrhea, unspecified (5) GERD (gastroesophageal reflux disease) Current visit: Yes Status: Acute Category: Medical Code(s): K21.9 - Gastro-esophageal reflux disease without esophagitis (6) Tobacco use Current visit: No Status: Chronic Category: Social Hx Code(s): Z72.0 - Tobacco use <Jerome Sánchez Ramakrishna - 10/25/17 19:39> (1) Acute pancreatitis Current visit: Yes Status: Acute Category: Medical Code(s): K85.90 - Acute pancreatitis without necrosis or infection, unspecified (2) Alcoholism Current visit: Yes Status: Chronic Category: Medical Code(s): F10.20 - Alcohol dependence, uncomplicated (3) Hypokalemia Current visit: Yes Status: Acute Category: Medical Code(s): E87.6 - Hypokalemia (4) Diarrhea Current visit: Yes Status: Acute Category: Medical Code(s): R19.7 - Diarrhea, unspecified (5) GERD (gastroesophageal reflux disease) Current visit: Yes Status: Acute Category: Medical Code(s): K21.9 - Gastro-esophageal reflux disease without esophagitis (6) Tobacco use Current visit: No Status: Chronic Category: Social Hx Code(s): Z72.0 - Tobacco use <Trang Rios - 10/25/17 16:00> - Assessment and plan all Dx Assessment and Plan for all problems:: Patient seen and examined. Still with significant complaint of pain. Will increase dose of morphine o/w concur with assessment and plan as outlined. <Jerome Sánchez - 10/25/17 19:39> IVF; GI rest; diarrhea panel; pain and nausea control. Has received PO KCL <Trang Rios - 10/25/17 16:17>
--- NOTE | 2017-10-26 07:22 | Pharmacy Consult Notes ---
[facility] Pharmacy VTE Monitoring - Patient Demographics Admission date: 10/25/17 Report Date: 10/26/17 Time: 07:21 Allergies/Adverse Reactions: Patient Allergies codeine [CODEINE] Allergy (Mild, Verified 10/25/17 13:05) Height: 1.68 m Weight: 46.918 kg Patient Problems: Current Active Problems Alcoholism (Chronic) Hypokalemia (Acute) Acute pancreatitis (Acute) Non-compliance (Acute) Diarrhea (Acute) Diarrhea (Acute) GERD (gastroesophageal reflux disease) (Acute) - VTE Risk Labs: VTE Related Lab Results Hgb 13.9 g/dL (12.2-16.2) 10/25/17 13:45 Hct 41.8 % (37.0-47.0) 10/25/17 13:45 Plt Count 210 K/mm3 (142-424) 10/25/17 13:45 BUN 2 mg/dL (7-18) L 10/25/17 13:45 Creatinine 0.47 mg/dL (0.55-1.02) L 10/25/17 13:45 Estimated Creat Clear 115 mL/min (0-300) 10/25/17 13:45 Was VTE Risk Assessment Performed: Yes VTE Score: 4 VTE Risk Level: Low Risk Clinical Trial Participant: No - Prophylaxis VTE Prophylaxis Ordered?: Yes Types of VTE Prophylaxis: TEDS Knee High
--- NOTE | 2017-10-26 07:58 | Progress Note ---
<Trang Rios - Last Filed: 10/26/17 07:58> Internal Medicine - PN: Subj *Date: 10/26/17 *Time: 07:58 Interval history: Patient continues to have abdominal pain and did not sleep much during the night because of this. She has had morphine regularly since admission. She continues to have some nausea which Zofran and Phenergan have helped. She has not vomited. She is not had any further diarrhea. She is voiding frequently. She denies chest pain and shortness of breath. Labs are being drawn at present. Exam Vital signs and Labs for Last 24 Hours: Temp Pulse Resp BP Pulse Ox 98.9 F 99 H 16 177/99 100 10/26/17 07:54 10/26/17 07:54 10/26/17 07:54 10/26/17 07:54 10/26/17 07:54 Laboratory Results - last 24 hr 10/25/17 13:03: Urine Color Yellow, Urine Appearance Clear, Urine pH 6.0, Ur Specific [place] >= 1.030, Urine Protein Trace, Urine Glucose (UA) Negative, Urine Ketones 2+, Urine Blood Negative, Urine Nitrate Negative, Urine Bilirubin Negative, Urine Urobilinogen 0.2, Ur Leukocyte Esterase Negative, Urine RBC None , Urine WBC 3-5, Ur Squamous Epith Cells 5-10, Urine Bacteria Trace 10/25/17 13:03: Urine Opiates Screen Negative, Urine Methadone Screen Negative, Ur Barbituates Screen Negative, Ur Phencyclidine Scrn Negative, Ur Amphetamines Screen Negative, U Benzodiazepines Scrn Negative, Urine Cocaine Screen Negative , U Marijuana (THC) Screen Positive H 10/25/17 13:45: WBC 7.0, RBC 4.05 L, Hgb 13.9, Hct 41.8, MCV 103.2 H, MCH 34.2 H , MCHC 33.2, RDW 12.7, Plt Count 210, MPV 8.0, Neut % (Auto) 89.4 H, Lymph % ( Auto) 6.6 L, [place] % (Auto) 3.4, Eos % (Auto) 0.1, Baso % (Auto) 0.4, Neut # ( Auto) 6.2, Lymph # (Auto) 0.5 L, [place] # (Auto) 0.2, Eos # (Auto) 0.0, Baso # ( Auto) 0.0, Total Counted 100, Neutrophils % (Manual) 89 H, Band Neutrophils % 2.0, Lymphocytes % (Manual) 5 L, Monocytes % (Manual) 4, Platelet Estimate Normal, Macrocytosis 1+ 10/25/17 13:45: Sodium 135 L, Potassium 2.7 L*, Chloride 96 L, Carbon Dioxide 20 L, Anion Gap 21.7 H, BUN 2 L, Creatinine 0.47 L, Estimated Creat Clear 115, Estimated GFR 139, Est GFR ( Amer) 168, Glucose 101, Calcium 8.9, Total Bilirubin 0.9, AST 254 H, ALT 109 H, Alkaline Phosphatase 189 H, Total Protein 8.5 H, Albumin 4.2, Globulin 4.3 H, Albumin/Globulin Ratio 1.0 L, Amylase 292 H , Lipase 4276 H, Plasma/Serum Alcohol 4 10/25/17 13:45: Troponin I < 0.02 10/25/17 13:45: Triglycerides 36 I & O for Last 24 hours: Intake & Output 10/23/17 10/24/17 10/25/17 10/26/17 11:59 11:59 11:59 11:59 Intake Total 1921 Balance 1921 Weight 103 lb 7 oz Radiology Reports for the Last 24 Hours: CT of abdomen and pelvis 10/25/2017 IMPRESSION: 1. Suspect mild acute pancreatitis. 2. Small amount fluid medial to the descending portion of the duodenum and could be due to small peripancreatic effusion. - Constitutional no acute distress - *Routine Respiratory Exam Present: CTA bilaterally - *Routine Cardiovascular Exam Present: RRR - *Routine Abdominal Exam Present: soft, tenderness (Epigastrium) Comments: Decrease in bowel sounds - *Routine Extremities Exam Absent: edema, calf tenderness - *Routine Neurological Exam Present: alert, oriented X3 Assessment and Plan (1) Acute pancreatitis Current visit: Yes Status: Acute Category: Medical Code(s): K85.90 - Acute pancreatitis without necrosis or infection, unspecified (2) Alcoholism Current visit: Yes Status: Chronic Category: Medical Code(s): F10.20 - Alcohol dependence, uncomplicated (3) Hypokalemia Current visit: Yes Status: Acute Category: Medical Code(s): E87.6 - Hypokalemia (4) Diarrhea Current visit: Yes Status: Acute Category: Medical Code(s): R19.7 - Diarrhea, unspecified (5) GERD (gastroesophageal reflux disease) Current visit: Yes Status: Acute Category: Medical Code(s): K21.9 - Gastro -esophageal reflux disease without esophagitis (6) Tobacco use Current visit: No Status: Chronic Category: Social Hx Code(s): Z72.0 - Tobacco use - Assessment and plan all Dx Assessment and Plan for all problems:: We will await lab results before advancing diet. Continue with GI rest and IV fluids. <Jeorme Sánchez - Last Filed: 10/26/17 08:10> Internal Medicine - PN: Subj *Date: 10/26/17 *Time: 08:09 Exam Vital signs and Labs for Last 24 Hours: Temp Pulse Resp BP Pulse Ox 98.9 F 99 H 16 177/99 100 10/26/17 07:54 10/26/17 07:54 10/26/17 07:54 10/26/17 07:54 10/26/17 07:54 Laboratory Results - last 24 hr 10/25/17 13:03: Urine Color Yellow, Urine Appearance Clear, Urine pH 6.0, Ur Specific [place] >= 1.030, Urine Protein Trace, Urine Glucose (UA) Negative, Urine Ketones 2+, Urine Blood Negative, Urine Nitrate Negative, Urine Bilirubin Negative, Urine Urobilinogen 0.2, Ur Leukocyte Esterase Negative, Urine RBC None , Urine WBC 3-5, Ur Squamous Epith Cells 5-10, Urine Bacteria Trace 10/25/17 13:03: Urine Opiates Screen Negative, Urine Methadone Screen Negative, Ur Barbituates Screen Negative, Ur Phencyclidine Scrn Negative, Ur Amphetamines Screen Negative, U Benzodiazepines Scrn Negative, Urine Cocaine Screen Negative , U Marijuana (THC) Screen Positive H 10/25/17 13:45: WBC 7.0, RBC 4.05 L, Hgb 13.9, Hct 41.8, MCV 103.2 H, MCH 34.2 H , MCHC 33.2, RDW 12.7, Plt Count 210, MPV 8.0, Neut % (Auto) 89.4 H, Lymph % ( Auto) 6.6 L, [place] % (Auto) 3.4, Eos % (Auto) 0.1, Baso % (Auto) 0.4, Neut # ( Auto) 6.2, Lymph # (Auto) 0.5 L, [place] # (Auto) 0.2, Eos # (Auto) 0.0, Baso # ( Auto) 0.0, Total Counted 100, Neutrophils % (Manual) 89 H, Band Neutrophils % 2.0, Lymphocytes % (Manual) 5 L, Monocytes % (Manual) 4, Platelet Estimate Normal, Macrocytosis 1+ 10/25/17 13:45: Sodium 135 L, Potassium 2.7 L*, Chloride 96 L, Carbon Dioxide 20 L, Anion Gap 21.7 H, BUN 2 L, Creatinine 0.47 L, Estimated Creat Clear 115, Estimated GFR 139, Est GFR ( Amer) 168, Glucose 101, Calcium 8.9, Total Bilirubin 0.9, AST 254 H, ALT 109 H, Alkaline Phosphatase 189 H, Total Protein 8.5 H, Albumin 4.2, Globulin 4.3 H, Albumin/Globulin Ratio 1.0 L, Amylase 292 H , Lipase 4276 H, Plasma/Serum Alcohol 4 10/25/17 13:45: Troponin I < 0.02 10/25/17 13:45: Triglycerides 36 I & O for Last 24 hours: Intake & Output 10/23/17 10/24/17 10/25/17 10/26/17 11:59 11:59 11:59 11:59 Intake Total 1921 Balance 1921 Weight 103 lb 7 oz Assessment and Plan (1) Acute pancreatitis Current visit: Yes Status: Acute Category: Medical Code(s): K85.90 - Acute pancreatitis without necrosis or infection, unspecified (2) Alcoholism Current visit: Yes Status: Chronic Category: Medical Code(s): F10.20 - Alcohol dependence, uncomplicated (3) Hypokalemia Current visit: Yes Status: Acute Category: Medical Code(s): E87.6 - Hypokalemia (4) Diarrhea Current visit: Yes Status: Acute Category: Medical Code(s): R19.7 - Diarrhea, unspecified (5) GERD (gastroesophageal reflux disease) Current visit: Yes Status: Acute Category: Medical Code(s): K21.9 - Gastro -esophageal reflux disease without esophagitis (6) Tobacco use Current visit: No Status: Chronic Category: Social Hx Code(s): Z72.0 - Tobacco use - Assessment and plan all Dx Assessment and Plan for all problems:: Patient seen and examined. Feels about the same. Still with pain and nausea. No vomiting or diarrhea. C/o headache. AM labs pending - if improving, may advance to clear liquids.
[2017-10-26 08:15] LABS: Basophils % 0.1 % (0.1-2.0); Eosinophils % 0.3 % (0.1-12.0); Hematocrit 40.2 % (37.0-47.0); Hemoglobin 12.9 g/dL (12.2-16.2); Lymphocytes # 0.7 K/mm3 (0.7-4.5); Lymphocytes % 8.7 K/mm3 (10-50); Mean Corpuscular HGB Conc 32.1 g/dL (31.8-35.4); Mean Corpuscular Volume 102.7 fl (81-99); Mean Platelet Volume 8.4 fl (7.4-10.4); Monocytes # 0.4 K/mm3 (0.1-1.0); Monocytes % 5.3 % (1.7-9.3); Neutrophils # 6.8 K/mm3 (1.8-7.8); Neutrophils % 85.5 % (37.0-80.0); Platelet Count 166 K/mm3 (142-424); Red Blood Count 3.92 M/mm3 (4.20-5.40); Red Cell Distribution Width 12.8 % (11.5-17.5); White Blood Count 7.9 K/mm3 (4.8-10.8)
[2017-10-26 08:25] LABS: Albumin Level 3.5 gm/dL (3.4-5.0); Albumin/Globulin Ratio 0.9 (1.1-1.8); Anion Gap 7.6 mEq/L (5-15); Bilirubin,Total 1.3 mg/dL (0.2-1.0); Calcium 8.8 mg/dL (8.5-10.1); Globulin 3.9 gm/dl (1.3-3.2); Potassium 4.6 mmoL/L (3.5-5.1); Total Protein,Serum 7.4 gm/dL (6.4-8.2)
[2017-10-26 10:46] LABS: Lymphocytes % 6 % (10-50); Monocytes % 2 % (2-9); Neutrophils % 91 % (42-76); Total Cells Counted 100
[2017-10-26 10:48] LABS: Macrocytosis 1+
[2017-10-27 07:37] LABS: Albumin Level 3.1 gm/dL (3.4-5.0); Albumin/Globulin Ratio 0.9 (1.1-1.8); Anion Gap 2.7 mEq/L (5-15); Bilirubin,Total 1.3 mg/dL (0.2-1.0); Calcium 8.2 mg/dL (8.5-10.1); Globulin 3.6 gm/dl (1.3-3.2); Potassium 3.7 mmoL/L (3.5-5.1); Total Protein,Serum 6.7 gm/dL (6.4-8.2)
--- NOTE | 2017-10-27 08:18 | Progress Note ---
<Carmen Licea - Last Filed: 10/27/17 08:16> Internal Medicine - PN: Subj *Date: 10/27/17 *Time: 08:16 Interval history: Patient states she is feeling a little better this morning. Her abdominal pain has improved. She denies any nausea or vomiting. She states she is hungry. She slept off and on throughout the night. Exam Vital signs and Labs for Last 24 Hours: Temp Pulse Resp BP Pulse Ox 98.1 F 86 18 141/85 96 10/27/17 08:00 10/27/17 08:00 10/27/17 08:00 10/27/17 08:00 10/27/17 08:00 Laboratory Results - last 24 hr 10/26/17 08:00: WBC 7.9, RBC 3.92 L, Hgb 12.9, Hct 40.2, MCV 102.7 H, MCH 33.0 H , MCHC 32.1, RDW 12.8, Plt Count 166, MPV 8.4, Neut % (Auto) 85.5 H, Lymph % ( Auto) 8.7 L, [place] % (Auto) 5.3, Eos % (Auto) 0.3, Baso % (Auto) 0.1, Neut # ( Auto) 6.8, Lymph # (Auto) 0.7, [place] # (Auto) 0.4, Eos # (Auto) 0.0, Baso # (Auto ) 0.0, Total Counted 100, Neutrophils % (Manual) 91 H, Lymphocytes % (Manual) 6 L, Atypical Lymphs % 1.0, Monocytes % (Manual) 2, Platelet Estimate Normal, Macrocytosis 1+ 10/26/17 08:00: Sodium 133 L, Potassium 4.6 D, Chloride 101, Carbon Dioxide 29 D, Anion Gap 7.6, BUN 4 L D, Creatinine 0.64 D, Estimated Creat Clear 76, Estimated GFR 97, Est GFR ( Amer) 118 D, Glucose 127 H D, Calcium 8.8, Magnesium 1.8, Total Bilirubin 1.3 H, AST 126 H D, ALT 75 D, Alkaline Phosphatase 162 H, Total Protein 7.4, Albumin 3.5 D, Globulin 3.9 H, Albumin/ Globulin Ratio 0.9 L, Amylase 840 H* 10/26/17 08:00: Lipase 8768 H 10/27/17 06:53: Sodium 128 L, Potassium 3.7, Chloride 100, Carbon Dioxide 29, Anion Gap 2.7 L, BUN 1 L D, Creatinine 0.53 L, Estimated Creat Clear 97, Estimated GFR 121, Est GFR ( Amer) 147 D, Glucose 92 D, Calcium 8.2 L, Total Bilirubin 1.3 H, AST 76 H D, ALT 52 D, Alkaline Phosphatase 143 H, Total Protein 6.7, Albumin 3.1 L D, Globulin 3.6 H, Albumin/Globulin Ratio 0.9 L, Amylase 510 H* D, Lipase 4216 H I & O for Last 24 hours: Intake & Output 10/24/17 10/25/17 10/26/17 10/27/17 11:59 11:59 11:59 11:59 Intake Total 1921 Balance 1921 Weight 103 lb 7 oz 109 lb 8 oz - Constitutional no acute distress - *Routine Respiratory Exam Present: CTA bilaterally - *Routine Cardiovascular Exam Present: RRR - *Routine Abdominal Exam Present: soft, normoactive bowel sounds, tenderness (in the epigastric area) - *Routine Extremities Exam Present: edema Assessment and Plan (1) Acute pancreatitis Current visit: Yes Status: Acute Category: Medical Code(s): K85.90 - Acute pancreatitis without necrosis or infection, unspecified (2) Alcoholism Current visit: Yes Status: Chronic Category: Medical Code(s): F10.20 - Alcohol dependence, uncomplicated (3) Hypokalemia Current visit: Yes Status: Acute Category: Medical Code(s): E87.6 - Hypokalemia (4) Diarrhea Current visit: Yes Status: Acute Category: Medical Code(s): R19.7 - Diarrhea, unspecified (5) GERD (gastroesophageal reflux disease) Current visit: Yes Status: Acute Category: Medical Code(s): K21.9 - Gastro -esophageal reflux disease without esophagitis (6) Tobacco use Current visit: No Status: Chronic Category: Social Hx Code(s): Z72.0 - Tobacco use - Assessment and plan all Dx Assessment and Plan for all problems:: Will start on sips and chips this am. Her amylase and lipase are improving. <Jerome Sánchez - Last Filed: 10/27/17 08:20> Internal Medicine - PN: Subj *Date: 10/27/17 *Time: 08:18 Exam Vital signs and Labs for Last 24 Hours: Temp Pulse Resp BP Pulse Ox 98.1 F 86 18 141/85 96 10/27/17 08:00 10/27/17 08:00 10/27/17 08:00 10/27/17 08:00 10/27/17 08:00 Laboratory Results - last 24 hr 10/26/17 08:00: WBC 7.9, RBC 3.92 L, Hgb 12.9, Hct 40.2, MCV 102.7 H, MCH 33.0 H , MCHC 32.1, RDW 12.8, Plt Count 166, MPV 8.4, Neut % (Auto) 85.5 H, Lymph % ( Auto) 8.7 L, [place] % (Auto) 5.3, Eos % (Auto) 0.3, Baso % (Auto) 0.1, Neut # ( Auto) 6.8, Lymph # (Auto) 0.7, [place] # (Auto) 0.4, Eos # (Auto) 0.0, Baso # (Auto ) 0.0, Total Counted 100, Neutrophils % (Manual) 91 H, Lymphocytes % (Manual) 6 L, Atypical Lymphs % 1.0, Monocytes % (Manual) 2, Platelet Estimate Normal, Macrocytosis 1+ 10/26/17 08:00: Sodium 133 L, Potassium 4.6 D, Chloride 101, Carbon Dioxide 29 D, Anion Gap 7.6, BUN 4 L D, Creatinine 0.64 D, Estimated Creat Clear 76, Estimated GFR 97, Est GFR ( Amer) 118 D, Glucose 127 H D, Calcium 8.8, Magnesium 1.8, Total Bilirubin 1.3 H, AST 126 H D, ALT 75 D, Alkaline Phosphatase 162 H, Total Protein 7.4, Albumin 3.5 D, Globulin 3.9 H, Albumin/ Globulin Ratio 0.9 L, Amylase 840 H* 10/26/17 08:00: Lipase 8768 H 10/27/17 06:53: Sodium 128 L, Potassium 3.7, Chloride 100, Carbon Dioxide 29, Anion Gap 2.7 L, BUN 1 L D, Creatinine 0.53 L, Estimated Creat Clear 97, Estimated GFR 121, Est GFR ( Amer) 147 D, Glucose 92 D, Calcium 8.2 L, Total Bilirubin 1.3 H, AST 76 H D, ALT 52 D, Alkaline Phosphatase 143 H, Total Protein 6.7, Albumin 3.1 L D, Globulin 3.6 H, Albumin/Globulin Ratio 0.9 L, Amylase 510 H* D, Lipase 4216 H I & O for Last 24 hours: Intake & Output 10/24/17 10/25/17 10/26/17 10/27/17 11:59 11:59 11:59 11:59 Intake Total 1921 Balance 1921 Weight 103 lb 7 oz 109 lb 8 oz Assessment and Plan (1) Acute pancreatitis Current visit: Yes Status: Acute Category: Medical Code(s): K85.90 - Acute pancreatitis without necrosis or infection, unspecified (2) Alcoholism Current visit: Yes Status: Chronic Category: Medical Code(s): F10.20 - Alcohol dependence, uncomplicated (3) Hypokalemia Current visit: Yes Status: Acute Category: Medical Code(s): E87.6 - Hypokalemia (4) Diarrhea Current visit: Yes Status: Acute Category: Medical Code(s): R19.7 - Diarrhea, unspecified (5) GERD (gastroesophageal reflux disease) Current visit: Yes Status: Acute Category: Medical Code(s): K21.9 - Gastro -esophageal reflux disease without esophagitis (6) Tobacco use Current visit: No Status: Chronic Category: Social Hx Code(s): Z72.0 - Tobacco use - Assessment and plan all Dx Assessment and Plan for all problems:: States she is hungry. Reports her abdominal pain is "a little better". No vomiting. She wants to go home. Her labs have improved some. Will try ice chips today.
[2017-10-28 06:24] LABS: Amylase 157 U/L (25-125); Lipase 1169 u/L (73-393)
--- NOTE | 2017-10-28 08:15 | Progress Note ---
<Carmen Licea - Last Filed: 10/28/17 08:14> Internal Medicine - PN: Subj *Date: 10/28/17 *Time: 08:14 Interval history: Patient states she is feeling better this morning. She denies any abdominal pain. She tolerated ice chips and water well. She states she is hungry. She also states that she has to go home today to pay her rent or she loses her home. Exam Vital signs and Labs for Last 24 Hours: Temp Pulse Resp BP Pulse Ox 98.9 F 70 18 129/78 95 10/28/17 08:00 10/28/17 08:00 10/28/17 08:00 10/28/17 08:00 10/28/17 08:00 Laboratory Results - last 24 hr 10/28/17 05:53: Amylase 157 H D, Lipase 1169 H I & O for Last 24 hours: Intake & Output 10/25/17 10/26/17 10/27/17 10/28/17 11:59 11:59 11:59 11:59 Intake Total 1921 1846 / 1846 3439 / 3439 Balance 1921 / 184 3439 / 3439 Weight 103 lb 7 oz 109 lb 8 oz 110 lb 2 oz - Constitutional no acute distress - *Routine Respiratory Exam Present: CTA bilaterally - *Routine Cardiovascular Exam Present: RRR - *Routine Abdominal Exam Present: soft, normoactive bowel sounds. Absent: tenderness - *Routine Extremities Exam Absent: edema Assessment and Plan (1) Acute pancreatitis Current visit: Yes Status: Acute Category: Medical Code(s): K85.90 - Acute pancreatitis without necrosis or infection, unspecified (2) Alcoholism Current visit: Yes Status: Chronic Category: Medical Code(s): F10.20 - Alcohol dependence, uncomplicated (3) Hypokalemia Current visit: Yes Status: Acute Category: Medical Code(s): E87.6 - Hypokalemia (4) Diarrhea Current visit: Yes Status: Acute Category: Medical Code(s): R19.7 - Diarrhea, unspecified (5) GERD (gastroesophageal reflux disease) Current visit: Yes Status: Acute Category: Medical Code(s): K21.9 - Gastro -esophageal reflux disease without esophagitis (6) Tobacco use Current visit: No Status: Chronic Category: Social Hx Code(s): Z72.0 - Tobacco use - Assessment and plan all Dx Assessment and Plan for all problems:: Pancreatic enzymes improving. We will advance diet today and if patient tolerates, can possibly discharge later on this afternoon. <Jerome Sánchez - Last Filed: 10/28/17 08:23> Internal Medicine - PN: Subj *Date: 10/28/17 *Time: 08:22 Exam Vital signs and Labs for Last 24 Hours: Temp Pulse Resp BP Pulse Ox 98.9 F 70 18 129/78 95 10/28/17 08:00 10/28/17 08:00 10/28/17 08:00 10/28/17 08:00 10/28/17 08:00 Laboratory Results - last 24 hr 10/28/17 05:53: Amylase 157 H D, Lipase 1169 H I & O for Last 24 hours: Intake & Output 10/25/17 10/26/17 10/27/17 10/28/17 11:59 11:59 11:59 11:59 Intake Total 1921 1846 / 1846 3439 / 3439 Balance 1921 / 1845 3439 / 3439 Weight 103 lb 7 oz 109 lb 8 oz 110 lb 2 oz Assessment and Plan (1) Acute pancreatitis Current visit: Yes Status: Acute Category: Medical Code(s): K85.90 - Acute pancreatitis without necrosis or infection, unspecified (2) Alcoholism Current visit: Yes Status: Chronic Category: Medical Code(s): F10.20 - Alcohol dependence, uncomplicated (3) Hypokalemia Current visit: Yes Status: Acute Category: Medical Code(s): E87.6 - Hypokalemia (4) Diarrhea Current visit: Yes Status: Acute Category: Medical Code(s): R19.7 - Diarrhea, unspecified (5) GERD (gastroesophageal reflux disease) Current visit: Yes Status: Acute Category: Medical Code(s): K21.9 - Gastro -esophageal reflux disease without esophagitis (6) Tobacco use Current visit: No Status: Chronic Category: Social Hx Code(s): Z72.0 - Tobacco use - Assessment and plan all Dx Assessment and Plan for all problems:: Subjectively and clinically improved. She insists on going home to pay her rent. Will advance to bland diet and if tolerated,will discharge home.
--- NOTE | 2017-10-28 16:09 | Discharge Summary ---
General - General Admission date:: 10/25/17 <Jerome Sánchez - 10/29/17 08:38> 10/25/17 <Carmen Licea - 10/28/17 16:14> Discharge date: 10/28/17 <AnujaCarmen - 10/28/17 16:14> HPI HPI: Ms Bustamante is a 51 year old white female with history of alcoholism, pancreatitis, COPD, GERD, and CHF Yesterday she drank 1-1/2 beer and was awakened at 7:00 this morning with upper abdominal pain that was severe and sharp in character radiating to the back with nausea, dry heaving and diarrhea. She is status post cholecystectomy and hysterectomy. She denies having hematemesis, coffee-ground emesis, melanotic stool, ,bleeding per rectum, hematuria, dysuria, frequency or hemoptysis. She also denies chest pain, shortness of breath or heart palpitations. She has had the diarrhea for several weeks. With this exam pt is uncomfortable and wants her pain medicine. She states that she did fall this AM when she fainted briefly. She does not have any injuries from the fall. <Carmen Licea - 10/28/17 16:14> Hospital Course Hospital Course: She complained of diarrhea on admssion and diarrhea panel was ordered but she never had a diarrheal stool after admissioin so this was not obtained. Her pancreatic enzymes improved but were not normal at time of discharge. SHe was advised to stay but insisted she had to leave or she would lose her home. It was felt that with continued conservative measures, her symptoms should completely resolve. As well, she was strongly advised to avoid alcohol. SHe was instructed to return to ER if her oain worsened. <Jerome Sánchez - 10/29/17 08:38> The patient was started on IVF, GI rest, pain and nausea control. She received PO KCL. Her pancreatic enzymes were elevated and her CT showed mild acute pancreatitis. Throughout her stay, her pain and pancreatic enzymes did improve and she was able to tolerate a bland diet. She insisted she had to go home to pay her rent. She was discharged and will f/u with her PCP. <Carmen Licea - 10/28/17 16:14> Objective Vital signs: Temp Pulse Resp BP Pulse Ox 98.9 F 70 18 129/78 95 10/28/17 08:00 10/28/17 08:00 10/28/17 08:00 10/28/17 08:00 10/28/17 08:00 <GonzaloJerome Ramakrishna - 10/29/17 08:38> Temp Pulse Resp BP Pulse Ox 98.9 F 70 18 129/78 95 10/28/17 08:00 10/28/17 08:00 10/28/17 08:00 10/28/17 08:00 10/28/17 08:00 <Carmen Licea - 10/28/17 16:14> Narrative: - Constitutional no acute distress Comments: appears uncomfortable - *Routine HEENT Exam Head: Present: normocephalic, atraumatic Eye: Present: PERRL. Absent: conjunctival icterus, scleral injection Comments: coated tongue - *Routine Neck Exam Present: supple, full ROM. Absent: lymphadenopathy, thyromegaly - *Routine Respiratory Exam Present: CTA bilaterally (A&P) - *Routine Cardiovascular Exam Present: RRR - *Routine Abdominal Exam Present: soft, normoactive bowel sounds, tenderness (epigastrium and RUQ) - *Routine Extremities Exam Absent: edema, calf tenderness - *Routine Neurological Exam Present: alert, oriented X3, normal speech <Carmen Licea - 10/28/17 16:14> Results Labs on day of discharge: Labs from last 24 hours 10/28/17 05:53 Amylase 157 H D Lipase 1169 H <Carmen Licea - 10/28/17 16:14> DS: Diagnosis - Discharge Diagnosis (1) Acute pancreatitis Status: Acute (2) Alcoholism Status: Chronic (3) Hypokalemia Status: Acute (4) Diarrhea Status: Acute (5) GERD (gastroesophageal reflux disease) Status: Acute (6) Tobacco use Status: Chronic <Carmen Licea - 10/28/17 16:06> (1) Acute pancreatitis Status: Acute (2) Alcoholism Status: Chronic (3) Hypokalemia Status: Acute (4) Diarrhea Status: Acute (5) GERD (gastroesophageal reflux disease) Status: Acute (6) Tobacco use Status: Chronic <Jerome Sánchez - 10/29/17 08:38> Discharge Plan - Patient Discharge Instructions ACTIVITY: Continue current activity <Carmen Licea - 10/28/17 16:14> DIET: other ([place] diet and advance as tolerated. AVOID ALCOHOL.) <Carmen Licea - 10/28/17 16:14> Patient Instructions: Diarrhea (Alternative Therapy), DI for Gastroesophageal Reflux Disease (GERD), DI for Diarrhea and Traveler's Diarrhea -- Adult, GERD Diet <Jerome Sánchez - 10/29/17 08:38> Forms: <Jerome Sánchez - 10/29/17 08:38> - Follow up Plan Follow up with: Daniel Ponce MD [Staff Physician] - 1 week <Jerome Sánchez 10/29/17 08:38> Disposition: Home, Self-Care <Jerome Sánchez 10/29/17 08:38> Home Medications: Home Medications Medication Instructions Recorded Confirmed Type Omeprazole [Omeprazole 40mg 40 mg PO DAILY 05/29/17 10/25/17 History Capsule] Albuterol Sulfate [Albuterol HFA 2 puffs IH Q6HP PRN 05/30/17 10/25/17 History Inhaler] <Jerome Sánchez - 10/29/17 08:38> Prescriptions/Medication Reconciliation: New Ondansetron HCl [Zofran 4mg Tab] 4 mg PO Q6HP PRN #15 tab PRN Reason: Nausea Continue Omeprazole [Omeprazole 40mg Capsule] 40 mg PO DAILY Albuterol Sulfate [Albuterol HFA Inhaler] 2 puffs IH Q6HP PRN PRN Reason: Shortness Of Breath Or Wheezing <Jerome Sánchez - 07/13 08:38> - Additional Information Additional Information: Concur with plan for discharge as outlined. <Jerome Sánchez - 10/29/17 08:38>
== END 2017-10-28 11:39 | disposition home or self-care (01) ==
LOC: 2ND 13:00 → ER 13:00 → OBSVTOIN 16:12 → 2ND 16:13
PROVIDERS: ADMIT Family Medicine; ATTEND Family Medicine